=== PATIENT | male | born 1960 | race Caucasian/White ===

== ENCOUNTER 2016-04-17 19:45 | Emergency (ER) | payer MEDICARE ==
[~2016-04-17] VITALS: Ht 182.9 cm; Wt 218.2 kg
[~2016-04-17 19:45] MED LIST: ALLO300T2 PO; CEFD300C3 PO; DOXY100C PO; POTA20TA16 PO; TORS100T3 PO; WARF3TAB PO
[2016-04-17 19:48] VITALS: BP 119/71; PULSE 110; RESP 31; O2SAT 95
--- NOTE | 2016-04-17 19:58 | ED.REPORT ---
HPI-General Illness Date of Service Apr 17, 2016 ED Provider: Dr. Alex Pt is a 56 y/o male anticoagulated on Coumadin w/ a hx of CHF, chronic respiratory failure, KOKI on BiPAP with 2 L/min oxygen at night, recurrent pneumonia, severe aortic stenosis s/p valve replacement, presenting to the ED via EMS c/o pleuritic back pain onset today. He also c/o associated orthostatic lightheadedness and nausea. He was admitted 3 weeks ago for pneumonia and discharged on PO antibiotics after he had an allergic reaction to IV antibiotics. He denies CP, diaphoresis, vomiting, diarrhea, constipation. Nursing Notes Stated Complaint: BACK/LEFT ARM PAIN Chief Complaint: Dysrhythmia/Cardiac Nursing Notes Reviewed: Yes Allergies: Coded Allergies: azithromycin (Verified Allergy, Mild, 03/17/16) mild chill reportedly on 03/16/16 Scheduled Allopurinol (Allopurinol) 300 Mg Tablet 300 MG PO DAILY Cefdinir (Cefdinir) 300 Mg Capsule 300 MG PO BID Doxycycline Hyclate (Vibramycin) 100 Mg Capsule 100 MG PO BID Potassium Chloride (Potassium Chloride) 20 Meq Tab.er.prt 40 MEQ PO DAILY Torsemide (Torsemide) 100 Mg Tablet 100 MG PO DAILY Warfarin Sodium (Coumadin) 3 Mg Tablet 6 MG PO ONCE@17 General Time Seen by MD: 20:21 Chief Complaint Other (Pleuritic back pain) Hx Obtained From: Patient, EMS Arrived By: Ambulance Symptom Duration: Since onset Location: : Back Quality: Painful, Pleuritic Severity: Current: Moderate Severity: Maximum: Moderate Recent Healthcare: Recent doctor visit, Recent hospitalization, Recent testing , Previous diagnosis, Prior workup Similar Sx Previous: Yes Past Medical History Past Medical History 1. Obesity hypoventilation syndrome. 2. History of respiratory failure, status post intubation on mechanical ventilation in July 2009. 3. History of pneumonia in July 2009. 4. Congestive heart failure, chronic, systolic dysfunction by an echocardiogram from February 16, 2011, showing an LVEF of 35% to 40%. 5. history of asymptomatic short runs of V-tach 6. Coagulopathy with elevated INR and PTT, status post previous workup. 7. Morbid obesity. 8. Gout 8. Degenerative joint disease. 9. History of nephrolithiasis. 10. Obstructive sleep apnea, on BiPAP with supplemental oxygen at night. 11. Chronic atrial fibrillation on Coumadin. 12. valvular heart disease 13. aortic stenosis s/p valve replacement 16. history of renal failure Reports: Hypertension Past Surgical History 1. Bilateral knee arthroscopy. 2. Tear duct surgery as a child. 3. valve replacement Smoking History Current Every Day Smoker Social History Alcohol Use: Denies alcohol use Drug Use: Denies drug use Other Social History: Poor social support, Lives alone, Local resident Ambulatory Status Walker Review of Systems Full Review of Systems Constitutional: Denies: Chills, Fever Respiratory: Reports: Pleuritic pain Cardiovascular: Denies: Chest pain GI: Reports: Nausea, Denies: Abdominal pain, Diarrhea, Vomiting Musculoskeletal: Reports: Back pain, Extremity pain Skin: Denies Diaphoresis Neurologic: Reports: Lightheaded Complete sys rev & neg: except as marked. Physical Exam Vital Signs Vital Signs Date Time Temp Pulse Resp B/P Pulse Ox O2 Delivery O2 Flow Rate FiO2 04/17/16 22:33 93 15 118/77 95 Nasal Cannula 2 04/17/16 19:48 36.7 110 31 119/71 95 Nasal Cannula 2 Initial VS: Reviewed, Vital signs normal (at baseline) Head / Eyes: Atraumatic, Normocephalic, PERRL ENT: Mucous membranes moist, Conjunctiva normal, No scleral icterus Neck: Supple, Full range of motion Abdomen / GI: Soft Extremities: Vascular intact, Neuro intact, No tenderness Skin: Warm, Dry, No cyanosis Neurologic: Alert, Oriented, Nonfocal Psychiatric: Mood/affect normal, Behavior normal, Normal thought content General/Constitutional: Awake, Alert, No acute distress, Cooperative, Not toxic appearing Appearance / Presentation: Positive: Obese, morbidly Respiratory / Chest: Atraumatic, Breath sounds = bilat, No respiratory distress , No rales, No rhonchi, No retractions, No chest wall deformity Mild scattered wheezing bilaterally Pain with inspiration Tenderness along the sternal border Cardiovascular: Heart rate NL, Regular rhythm, Heart sounds NL, No gallop, No murmurs, No rubs, Cap refill not delayed, Peripheral circulation NL Lower Ext Edema: Positive: Bilateral 1+ Interpretation & Diagnostics Lab Results Interpretation Result Diagram: 04/17/16199904/17/162037 Test 04/17/16 20:00 04/17/16 20:29 04/17/16 20:38 White Blood Count 6.1th/mm3 (3.8-10.1) Red Blood Count 4.78mil/mm3 (4.40-5.80) Hemoglobin 11.8g/dL (13.8-17.2) Hematocrit 39.2% (41.0-50.0) Mean Corpuscular Volume 82.0fL (81-100) Mean Corpuscular Hemoglobin 24.7pg (27.0-35.0) Mean Corpuscular Hemoglobin Concent 30.1% (32.0-37.0) Red Cell Distribution Width 16.7% (12.3-15.4) Platelet Count 197bil/L (150-400) Neutrophils (%) (Auto) 74.8% (40-74) Lymphocytes (%) (Auto) 7.7% (14-46) Monocytes (%) (Auto) 6.4% (4-12) Eosinophils (%) (Auto) 9.8% (0-5) Basophils (%) (Auto) 0.3% (0-3) Hold Betancourt Top Tube Received (Received) Sodium Level 140mEq/L (134-144) Potassium Level 4.0mEq/L (3.5-5.2) Chloride Level 99mEq/L (97-108) Carbon Dioxide Level 28mmol/L (18-29) Blood Urea Nitrogen 18mg/dL (6-24) Creatinine 1.24mg/dL (0.76-1.27) Estimat Glomerular Filtration Rate 65mL/min (>59) Glucose Level 101mg/dL (60-99) Calcium Level 8.6mg/dL (8.5-10.1) Magnesium Level 2.2mg/dL (1.6-2.6) Total Bilirubin 0.5mg/dL (0.0-1.2) Aspartate Amino Transf (AST/SGOT) 9U/L (0-50) Alanine Aminotransferase (ALT/SGPT) 5U/L (0-44) Alkaline Phosphatase 76U/L (25-150) Troponin T 0.010ug/L (0.0-0.011) Pro-B-Type Natriuretic Peptide 3486pg/mL (0-121) Total Protein 7.1g/dL (6.4-8.4) Albumin 3.2g/dL (3.4-5.0) ECG Interpretation ECG Interpretation: Atrial fibrillation, rate 96. IVCD. Interpreted by: ED physician Normal ECG Interpretation: No acute ischemic changes X-Ray Chest Interpretation Chest Xray Interpretation: IMPRESSION: Cardiomegaly as before. No acute disease or interval change Dictated by: Sreekanth Byrd M.D. on 04/17/2016 at 20:46 Approved by: Sreekanth Byrd M.D. on 04/17/2016 at 20:46 View: Portable, 1 view Interpretation / Wet Read by: Interpret - Radiologist Re-Eval/Medical Decision Time of Eval: 22:59 Patient Status: Condition improved, Pain improved Re-Evaluation/Progress Note: Pt rechecked. Informed pt of plan for treatment. Pt understands and agrees with plan for treatment. F/U and RTER warnings given. All questions addressed. Counseled Regarding: Diagnosis, Lab results, Need for follow-up, When/why to return to ED Discharge & Departure Primary Impression: Pleurisy Additional Impression: Congestive heart failure Congestive heart failure type: unspecified congestive heart failure type Congestive heart failure chronicity: chronic Qualified Code: I50.9 - Heart failure, unspecified Disposition: Home Discharge Condition All VS Reviewed: Yes Condition: Stable Additional Instructions: No dangerous cause for your back pain or arm pain was identified today. Your labs, EKG, and chest x-ray were similar to prior visits and not dangerous at this time. I believe your pain is caused by pleurisy, an inflammation of the lining of the lungs. This can cause chest pain and back pain with breathing. Pleurisy often occurs after getting over pneumonia or a similar pulmonary disease. You should return to the emergency department if you experience severe or persistent chest pain, trouble breathing, high fever, persistent cough, profound generalized weakness, or other new or worsening symptoms. Follow-up with your primary care doctor next week. Referrals: Maya Bruno MD (PCP) Scribe Attestation Portions of this note were transcribed by Brenden Pretty and Noe Woody. I, Dr. Alex. ] personally performed the history, physical exam and medical decision-making; I reviewed and confirmed the accuracy of the information in the transcribed note. Signed by:Brenden Pretty and Noe Woody, Pasquale, [04/17] and [2100]. copies to: Maya Bruno MD,Alina Brewer 7, 2017 19:58 Brenden Pretty Apr 17, 2016 20:29 NOE WOODY Apr 17, 2016 21:23
[2016-04-17 20:15] LABS: BASOPHILS % (AUTO) 0.3 % (0-3); EOSINOPHILS % (AUTO) 9.8 % (0-5); MONOCYTES % (AUTO) 6.4 % (4-12); Mean Corpuscular Hemoglobin 24.7 pg (27.0-35.0); NEUTROPHILS % (AUTO) 74.8 % (40-74); Platelet Count 197 bil/L (150-400)
--- NOTE | 2016-04-17 20:48 | DRSVH ---
PROCEDURE: X-RAY CHEST ONE VIEW, PORTABLE ([id number]) INDICATIONS: back pain, afib TECHNIQUE: One view of the chest was acquired. COMPARISON: [facility], CR, XR CHEST 1VW (PORTABLE), 03/20/2016, 5:25. FINDINGS: Surgical changes and devices: None. Lungs and pleura: No pleural effusions or pneumothorax. Lungs are clear. Scattered scarring Mediastinum: Mediastinal contours appear normal. Heart size is no enlarged as before rmal. Bones and chest wall: No suspicious bony lesions. Overlying soft tissues appear unremarkable. IMPRESSION: Cardiomegaly as before. No acute disease or interval change Dictated by: Sreekanth Byrd M.D. on 04/17/2016 at 20:46 Approved by: Sreekanth Byrd M.D. on 04/17/2016 at 20:46
[2016-04-17 21:11] LABS: TROPONIN T 0.01 ug/L (0.0-0.011)
[2016-04-17 21:22] LABS: Magnesium 2.2 mg/dL (1.6-2.6)
[2016-04-17 22:33] VITALS: BP 118/77; PULSE 93; RESP 15; O2SAT 95
== END 2016-04-18 02:51 | disposition home or self-care (01) ==
LOC: SED 19:45
DX: I50.22 Chronic systolic (congestive) heart failure (principal); J96.10 Chronic respiratory failure, unspecified whether with hypoxia or hypercapnia; I11.0 Hypertensive heart disease with heart failure; G47.33 Obstructive sleep apnea (adult) (pediatric); I48.2 Chronic atrial fibrillation; E66.2 Morbid (severe) obesity with alveolar hypoventilation; I35.0 Nonrheumatic aortic (valve) stenosis; F17.200 Nicotine dependence, unspecified, uncomplicated; Z87.01 Personal history of pneumonia (recurrent); Z95.4 Presence of other heart-valve replacement; Z99.81 Dependence on supplemental oxygen; Z86.718 Personal history of other venous thrombosis and embolism; Z79.01 Long term (current) use of anticoagulants; Z88.1 Allergy status to other antibiotic agents; Z68.44 Body mass index [BMI] 60.0-69.9, adult

== ENCOUNTER 2016-04-26 14:41 | Inpatient (IN) | payer MEDICARE ==
[~2016-04-26] VITALS: Ht 182.9 cm; Wt 222.0 kg
[2016-04-26 14:49] VITALS: BP 113/72; PULSE 75; RESP 18; O2SAT 96
[2016-04-26 15:04] VITALS: BP 113/72; PULSE 75; RESP 18; O2SAT 96
[2016-04-26 15:15] LABS: BASOPHILS % (AUTO) 0.5 % (0-3); EOSINOPHILS % (AUTO) 12.6 % (0-5); MONOCYTES % (AUTO) 7.1 % (4-12); Mean Corpuscular Hemoglobin 24.6 pg (27.0-35.0); Mean Corpuscular Volume 81.1 fL (81-100); NEUTROPHILS % (AUTO) 72.2 % (40-74); Platelet Count 183 bil/L (150-400)
--- NOTE | 2016-04-26 15:22 | ED.REPORT ---
HPI-Chest Pain 40 and Over Date of Service Apr 26, 2016 ED Provider: Rory Self MD 56 year old male presents to the ED via EMS with intermittent chest pain and pressure for 3 days. Pain lasts for 10-15 minutes before resolving. Pain worse with exertion. He also reports increased SOB with pain. Sharp pain since 0200 this morning. The pain is midline with radiation to L arm, severe. He has had 12 episodes since onset today. Current he only has pain with inspiration. Hx DVT , aortic valve replacement (tissue), and Afib on Coumadin, CHF, KOKI, obesity, hyperventilation syndrome. Nursing Notes Stated Complaint: CHEST PAIN Chief Complaint: Chest Pain Nursing Notes Reviewed: Yes Allergies: Coded Allergies: azithromycin (Verified Allergy, Mild, 03/17/16) mild chill reportedly on 03/16/16 Heparin Analogues (Verified Allergy, Unknown, 04/26/16) Scheduled Allopurinol (Allopurinol) 300 Mg Tablet 300 MG PO DAILY Duloxetine (Duloxetine) 30 Mg Capsule.dr 60 MG PO DAILY Potassium Chloride (Potassium Chloride) 20 Meq Tab.er.prt 40 MEQ PO DAILY Torsemide (Torsemide) 100 Mg Tablet 100 MG PO DAILY Warfarin Sodium (Warfarin Sodium) 4 Mg Tablet 4 MG PO DAILY Scheduled PRN Trazodone (Trazodone) 50 Mg Tablet 50-300 MG PO HS PRN PRN For Sleep General Time Seen by MD: 15:13 Chief Complaint Chest pain Hx Obtained From: Patient, EMS Arrived By: Ambulance Sudden in Onset?: No Onset Occurred: 3 days ago Symptom Duration: Intermittent Location: : Substernal Quality: Painful Severity: Current: No pain currently Associated with: Reports: Shortness of Breath, Denies: Fever Exacerbated by: Deep breath Pertinent Negative: Relieved by nothing Risk Factors )( CAD Risk Stratification Risk factors reviewed )( TAD Risk Stratification Risk factors reviewed )( PE Risk Stratification Risk factors reviewed Past Medical History Past Medical History 1. Obesity hypoventilation syndrome. 2. History of respiratory failure, status post intubation on mechanical ventilation in July 2009. On 2-3L home 2. 3. History of pneumonia in July 2009. 4. Congestive heart failure, chronic, systolic dysfunction by an echocardiogram from February 16, 2011, showing an LVEF of 35% to 40%. 5. history of asymptomatic short runs of V-tach 6. Coagulopathy with elevated INR and PTT, status post previous workup. 7. Morbid obesity. 8. Gout 8. Degenerative joint disease. 9. History of nephrolithiasis. 10. Obstructive sleep apnea, on BiPAP with supplemental oxygen at night. 11. Chronic atrial fibrillation on Coumadin. 12. valvular heart disease 13. aortic stenosis s/p valve replacement 16. history of renal failure Reports: Hypertension Past Surgical History 1. Bilateral knee arthroscopy. 2. Tear duct surgery as a child. 3. valve replacement Smoking History Former Smoker Social History Alcohol Use: Denies alcohol use Drug Use: Denies drug use Other Social History: Poor social support, Lives alone, Local resident Ambulatory Status Walker Review of Systems Basic Review of Systems Eyes: Vision NL, No discharge ENT: Hearing NL, No pain, No nasal congestion, No pharyngeal pain Constitutional: Denies: Fever Respiratory: Reports: Dyspnea on exertion, Shortness of breath Cardiovascular: Reports: Chest pain, Dyspnea on exertion GI: Denies: Abdominal pain, Nausea, Vomiting Skin: Denies Diaphoresis, Denies Rash Neurologic: Denies: Change LOC, Headache Complete sys rev & neg: except as marked. Physical Exam Initial Vital Signs Vital Signs (First) Date Time Temp Pulse Resp B/P Pulse Ox O2 Delivery O2 Flow Rate FiO2 04/26/16 14:49 36.4 75 18 113/72 96 Room Air 4 Initial VS: Reviewed Head / Eyes: Atraumatic, Normocephalic, PERRL ENT: Mucous membranes moist, Conjunctiva normal, No scleral icterus Neck: Supple, Non-tender, Full range of motion Extremities: Vascular intact, Neuro intact, No tenderness Skin: Warm, Dry, No cyanosis Neurologic: Alert, Oriented, Nonfocal Psychiatric: Mood/affect normal, Behavior normal, Normal thought content General/Constitutional: Awake, Alert Appearance / Presentation: Positive: Obese, morbidly Generally ill appearing Respiratory / Chest: Breath sounds NL, Breath sounds = bilat, No respiratory distress, No rales, No rhonchi, No wheezing, No stridor, No chest tenderness Cardiovascular: Heart rate NL, Peripheral circulation NL Heart Rate / Rhythm: Positive: Irreg irregular rhythm Trace pitting edema bilat lower extremities Good radial pulses Abdomen: Soft, Non-tender Interpretation & Diagnostics Lab Results Interpretation Result Diagram: 04/26/16 1501 04/26/16 1501 Test 04/26/16 15:01 White Blood Count 5.7th/mm3 (3.8-10.1) Red Blood Count 4.71mil/mm3 (4.40-5.80) Hemoglobin 11.6g/dL (13.8-17.2) Hematocrit 38.2% (41.0-50.0) Mean Corpuscular Volume 81.1fL (81-100) Mean Corpuscular Hemoglobin 24.6pg (27.0-35.0) Mean Corpuscular Hemoglobin Concent 30.4% (32.0-37.0) Red Cell Distribution Width 16.3% (12.3-15.4) Platelet Count 183bil/L (150-400) Neutrophils (%) (Auto) 72.2% (40-74) Lymphocytes (%) (Auto) 7.1% (14-46) Monocytes (%) (Auto) 7.1% (4-12) Eosinophils (%) (Auto) 12.6% (0-5) Basophils (%) (Auto) 0.5% (0-3) Prothrombin Time 25.6sec (8.1-12.5) Prothromb Time International Ratio 2.35ratio D-Dimer < 0.5mg/L FEU (<0.50) Sodium Level 139mEq/L (134-144) Potassium Level 3.7mEq/L (3.5-5.2) Chloride Level 97mEq/L (97-108) Carbon Dioxide Level 30mmol/L (18-29) Blood Urea Nitrogen 10mg/dL (6-24) Creatinine 1.07mg/dL (0.76-1.27) Estimat Glomerular Filtration Rate 77mL/min (>59) Glucose Level 92mg/dL (60-99) Calcium Level 8.9mg/dL (8.5-10.1) Magnesium Level 1.8mg/dL (1.6-2.6) Total Bilirubin 0.9mg/dL (0.0-1.2) Aspartate Amino Transf (AST/SGOT) 9U/L (0-50) Alanine Aminotransferase (ALT/SGPT) 5U/L (0-44) Alkaline Phosphatase 85U/L (25-150) Pro-B-Type Natriuretic Peptide 3115pg/mL (0-121) Total Protein 7.4g/dL (6.4-8.4) Albumin 3.6g/dL (3.4-5.0) General Lab Results Interp 1: Labs reviewed ECG Interpretation ECG Interpretation: Afib with a rate of 83, nl axis, No ST segment elevation, No T wave inversions. Non specific IVCD- No change when compared to prior dated 04/17/16. Time: 14:54 Interpreted by: ED physician X-Ray Chest Interpretation Chest Xray Interpretation: IMPRESSION: No definite acute disease or interval change. Patchy bibasilar scarring/atelectasis. Dictated by: Sreekanth Byrd M.D. on 04/26/2016 at 15:34 View: Portable, 1 view Interpretation / Wet Read by: Interpret - Radiologist Re-Eval/Medical Decision Med Decision/Clinical Course 56 year old male presents to the ED via EMS with intermittent chest pain and pressure for 3 days. Pain lasts for 10-15 minutes before resolving. Pain worse with exertion. He also reports increased SOB with pain. Sharp pain since 0200 this morning. The pain is midline with radiation to L arm, severe. He has had 12 episodes since onset today. Current he only has pain with inspiration. Hx DVT , aortic valve replacement (tissue), and Afib on Coumadin, CHF, KOKI, obesity, hyperventilation syndrome. 324 ASA given upon arrival. The patient is afebrile with stable vital signs. Chest X-ray: No definite acute disease or interval change. Patchy bibasilar scarring/atelectasis. ECG Afib with a rate of 83, nl axis, No ST segment elevation, No T wave inversions. Non specific IVCD- No change when compared to prior dated 04/17/16. Her studies notable as below: no leukocytosis Hcy 38.2 Kidney function nl negative troponin CMP unremarkable BNP 3000, no prior INR 2.35 D-dimer negative Overall presentation is somewhat concerning for acute coronary syndrome given this patient's multiple risk factors and morbid obesity. From a cardiac standpoint I feel that he requires admission for further stratification and ACS rule out. I am reassured that this is not reflected a pulmonary embolism given his negative d-dimer. He is low risk according to Wells criteria. He does report weight gain and worsening shortness of breath in the setting of lower extremity edema and his BNP is elevated at 3000. He is treated with IV Lasix. His overall presentation seems consistent with CHF exacerbation though acute coronary syndrome is certainly a possibility as well. At this time he is stable. The patient was discussed with the admitting hospitalist and transferred to the [facility] for further management. Time of Eval: 17:12 Re-Evaluation/Progress Note: Updated pt of labs, ECG and imaging results. Recommended admission. Pt understands and agrees with plan. All questions addressed. Consultation : Referral / Consult Name: Remigio Graves MD Consulted With: Hospitalist Call Returned at: 17:20 Final Inspector Balance Wheel: Will see patient, Agrees with eval, Agrees with plan, Accepts admit Counseled Regarding: Diagnosis, Lab results, Need for admission Discharge & Departure Primary Impression: Chest pain Chest pain type: unspecified Qualified Code: R07.9 - Chest pain, unspecified Additional Impressions: Morbid obesity Obesity type: unspecified obesity type Qualified Code: E66.01 - Morbid ( severe) obesity due to excess calories CHF exacerbation Anticoagulated on Coumadin History of aortic valve replacement Atrial fibrillation Atrial fibrillation type: chronic Qualified Code: I48.2 - Chronic atrial fibrillation Disposition: ADMITTED TO HOSPITAL Discharge Condition All VS Reviewed: Yes Referrals: Maya Bruno MD (PCP) Scribe Attestation Portions of this note were transcribed by Noemi Nicholson. I, (Dr. Self) personally performed the history, physical exam and medical decision-making; I reviewed and confirmed the accuracy of the information in the transcribed note. Signed by: Noemi Nicholson. 04/26/2016, 1900 copies to: Maya Bruno MD, Beck O MD Apr 26, 2016 15:22 Noemi Nicholson Apr 26, 2016 17:12
--- NOTE | 2016-04-26 15:37 | DRSVH ---
PROCEDURE: X-RAY CHEST ONE VIEW, PORTABLE ([id number]) INDICATIONS: chest pain TECHNIQUE: One view of the chest was acquired. COMPARISON: Located [facility], CR, XR CHEST 1VW (PORTABLE), 04/17/2016, 20:00. FINDINGS: Surgical changes and devices: None. Lungs and pleura: No pleural effusions or pneumothorax. Patchy bibasilar ill-defined opacities are g rossly unchanged. No definite new consolidation Mediastinum: Mediastinal contours appear normal. Heart size is enlarged accounting for technique. Bones and chest wall: No suspicious bony lesions. Overlying soft tissues appear unremarkable. IMPRESSION: No definite acute disease or interval change. Patchy bibasilar scarring/atelectasis. Dictated by: Sreekanth Byrd M.D. on 04/26/2016 at 15:34 Approved by: Sreekanth Byrd M.D. on 04/26/2016 at 15:34
[2016-04-26 15:48] LABS: TROPONIN T < 0.010 ug/L (0.0-0.011)
[2016-04-26 15:56] LABS: Magnesium 1.8 mg/dL (1.6-2.6)
[2016-04-26 16:31] LABS: D-Dimer < 0.5 mg/L FEU (<0.50); INR 2.35 ratio
[2016-04-26] MEDS ORDERED: Alum-Mag Hydrox-Simeth 30 mL Suspension PO PRN (17:10)
[2016-04-26] MEDS ORDERED: Ondansetron 2 mg/mL 2 mL Inj IVPUSH PRN (17:10)
[2016-04-26] MEDS ORDERED: Furosemide 10 mg/mL 4 mL Inj IVPUSH ONE (17:25)
[2016-04-26 18:26] VITALS: BP 114/85; PULSE 76; RESP 19; O2SAT 93
[2016-04-26 19:09] VITALS: BP 116/75; PULSE 74; RESP 20; O2SAT 97
--- NOTE | 2016-04-26 19:15 | NUR ---
transfer er to [facility] 1027 ARRIVED ON FLOOR, A/O X [address] APPARENT DISTRESS. DR[address] ALMANZAR CONTACTED RE:ORDERS. PT PLACED IN BARIACTRIC BED. COOP WITH CARE.
[2016-04-26 19:30] VITALS: BP 115/77; PULSE 72; RESP 18; O2SAT 95
--- NOTE | 2016-04-26 20:36 | PCM.HPMED ---
Subjective Date of Service Apr 26, 2016 Primary Provider: Admitting Physician: Remigio Graves MD Primary Care Physician: Maya Bruno MD Attending Physician: Remigio Graves MD Chief Complaint: Chest pain HISTORY was OBTAINED FROM PATIENT / MEDITECH NOTES History of present illness 56-year-old male, w/ no prior TN/porcine AvR-coumadin /sCHF/EF 45%/atrial fibrillation, BIB EMS with chest pressure x 3 days, worse with exertion/deep breathing, both dull/constant/ongoing and intermittent/sharp/ electric lasting minutes, can radiate to Left upper extremity. Unclear if SOB is baseline. He indicates hypoxia even w/ home O2 sometimes. no sick contacts/ resolved pneumonia (Last admitted 03/16-02/2016, Right Lower Lobe Pneumonia with Acute on Chronic Exacerbation of CHF treated w/ IV Abx x6 days then home w/ cefdinir/doxycycline x 6 more days at which point he stopped due to rash). less than expected UOP, had been planning to give himself 150 torsemide today vs usual 100, which he does intermittently. unclear if there is water weight gain due to obesity. no prior TN. In the ER d-dimer negative, troponin negative, BNP 3000 (baseline 3000s), INR 2.3, chest x-ray negative. Lasix 40 w/ 600cc+ urine output. Review of Systems - none of the following - F/C/sick contact / wt change/ ANAYA / lightheaded / dizziness / sob / cough / cp / acid reflux / n/v/diarrhea / bleeding/bruising / leg swelling / change in voiding / yeast infections / rash walker, using more wheelchair due to chest pressure FAMILY HX obesity Scheduled Allopurinol (Allopurinol) 300 Mg Tablet 300 MG PO DAILY Potassium Chloride (Potassium Chloride) 20 Meq Tab.er.prt 40 MEQ PO DAILY Torsemide (Torsemide) 100 Mg Tablet 100 MG PO DAILY Warfarin Sodium (Coumadin) 3 Mg Tablet 6 MG PO ONCE@17 Past Medical History . Obesity hypoventilation syndrome. VDRF On 2-3L home 2. History of pneumonia. Obstructive sleep apnea, on BiPAP . systolic Congestive heart failure 2010, showing an LVEF of 35% to 40% >> 25% prior to AvR porcine for AoStenosis >> EF 45% 03/2016 / . Hypertension / runs of V-tach / Chronic atrial fibrillation on Coumadin. . Coagulopathy with elevated INR and PTT, status post previous workup. . Morbid obesity. . Gout . Degenerative joint disease. . History of nephrolithiasis. history of renal failure Bilateral knee arthroscopy. . Tear duct surgery as a child. social History Former Smoker Allergies Coded Allergies: azithromycin (Verified Allergy, Mild, 03/17/16) mild chill reportedly on 03/16/16 Heparin Analogues (Verified Allergy, Unknown, 04/26/16) PMH Social History Hx Alcohol Use: No Hx Substance Use: No Hx Tobacco Use: Yes (quit in mar 2009) Smoking Status: Former Smoker Exam Vital Signs Vital Sign - Last Date Time Temp Pulse Resp B/P Pulse Ox O2 Delivery O2 Flow Rate FiO2 04/26/16 19:09 74 20 116/75 97 Nasal Cannula 3 04/26/16 15:04 36.4 Lab and Diagnostics Labs Exam on admission 4L NC obese NAD A and O x 3 mood affect WNL NC/AT no icterus no injected eyes EOMI PERRL /no pharyngeal lesions/ no oral lesions / hearing intact Supple neck CTAB equal chest rise / no accessory muscle use / speaks in full sentences / no rrw irreg irreg distant S1 S2 / no mrg / 2+ radial pulses Soft nt nd + BS no hepatosplenomegaly mild/moderate edema no cyanosis no ecchymosis of lower extremities No rash / no jaundice PEÑA EKG [id number] LBBB-chronic trop I neg x 1 BNP 3000 CXR - IMPRESSION: No definite acute disease or interval change. Patchy bibasilar scarring/atelectasis. Echo 03/2016 Interpretation Summary Technically difficult study. The patient was in atrial fibrillation with controlled ventricular rate during the exam. Markedly dilated left ventricle with ejection fraction 40-45%. Right ventricular systolic function is mild to moderately reduced. Severely dilated both atria. There is a porcine aortic valve. The peak aortic velocity is 239.3 cm/sec with the mean gradient of 16.5 mmHg. Mild mitral regurgitation. Comparison is made with the echocardiogram of 12/07/13, LV function has improved. Result Diagram: 04/26/16 1501 04/26/16 1501 Assessment & Plan Active issues and reason for admission 56-year-old male with dull ache chest pressure and intermittent sharp chest pain admitted for ACS evaluation, obesity, likely contributory sCHF. -- Serial troponin, lipid/statin acute sCHF w/ lowest Cr in 3 months --diurese lasix 40IV BID, hold home torsemide 100-150mg per day, i/o, consider qd weight - obese Chronic issues known prior to admission, present on admission . Obesity hypoventilation syndrome. VDRF On 2-3L home 2. History of pneumonia. Obstructive sleep apnea, on BiPAP . systolic Congestive heart failure 2010, showing an LVEF of 35% to 40% >> 25% prior to AvR porcine for AoStenosis >> EF 45% 03/2016 / . Hypertension / runs of V-tach / Chronic atrial fibrillation on Coumadin. . Coagulopathy with elevated INR and PTT, status post previous workup. . Morbid obesity. . Gout . Degenerative joint disease. . History of nephrolithiasis. history of renal failure -- Resume home meds Diet cardiac DVT prophylaxis lovenox Code full Disposition OBS status Assessment and plan were discussed with patient Remigio Graves MD Apr 26, 2016 20:36 Diet DVT prophylaxis lovenox heparin scd ambulate Code Disposition OBS status Assessment and plan were discussed with patient family. Remigio Graves MD Apr 26, 2016 20:36
[2016-04-26] MEDS ORDERED: Nitroglycerin 2% 1 Gm Ointment TOPICAL PRN (20:40)
[2016-04-26] MEDS ORDERED: TRAZ-115 PO (20:54)
[2016-04-26] MEDS ORDERED: DULO30CA50 PO (20:54)
[2016-04-26] MEDS ORDERED: WARF4TAB6 PO (20:54)
--- NOTE | 2016-04-26 22:20 | PCM.CONPHA ---
Subjective Date of Service: Apr 26, 2016 Chest pain HISTORY was OBTAINED FROM PATIENT / Resilience NOTES History of present illness 56-year-old male with chest pain on and off, worse with exertion, sharp. In the ER d-dimer negative, troponin negative, BNP 3000, INR 2.3, chest x-ray negative. Lasix 1 Review of Systems - none of the following - F/C/sick contact / wt change/ ANAYA / lightheaded / dizziness / sob / cough / cp / acid reflux / n/v/diarrhea / bleeding/bruising / leg swelling / change in voiding / yeast infections / rash FAMILY HX mild chill reportedly on 03/16/16 Scheduled Allopurinol (Allopurinol) 300 Mg Tablet 300 MG PO DAILY Cefdinir (Cefdinir) 300 Mg Capsule 300 MG PO BID Doxycycline Hyclate (Vibramycin) 100 Mg Capsule 100 MG PO BID Potassium Chloride (Potassium Chloride) 20 Meq Tab.er.prt 40 MEQ PO DAILY Torsemide (Torsemide) 100 Mg Tablet 100 MG PO DAILY Warfarin Sodium (Coumadin) 3 Mg Tablet 6 MG PO ONCE@17 General Time Seen by MD: 15:13 Chief Complaint Chest pain Hx Obtained From: Patient, EMS Arrived By: Ambulance Sudden in Onset?: No Onset Occurred: 3 days ago Symptom Duration: Intermittent Location: : Substernal Quality: Painful Severity: Current: No pain currently Associated with: Reports: Shortness of Breath, Denies: Fever Exacerbated by: Deep breath Pertinent Negative: Relieved by nothing Risk-Chest Pain 40 and Over Risk Factors )( CAD Risk Stratification Risk factors reviewed )( TAD Risk Stratification Risk factors reviewed )( PE Risk Stratification Risk factors reviewed Past Medical History - Adult Past Medical History Past Medical History 1. Obesity hypoventilation syndrome. 2. History of respiratory failure, status post intubation on mechanical ventilation in July 2009. On 2-3L home 2. 3. History of pneumonia in July 2009. 4. Congestive heart failure, chronic, systolic dysfunction by an echocardiogram from February 16, 2011, showing an LVEF of 35% to 40%. 5. history of asymptomatic short runs of V-tach 6. Coagulopathy with elevated INR and PTT, status post previous workup. 7. Morbid obesity. 8. Gout 8. Degenerative joint disease. 9. History of nephrolithiasis. 10. Obstructive sleep apnea, on BiPAP with supplemental oxygen at night. 11. Chronic atrial fibrillation on Coumadin. 12. valvular heart disease 13. aortic stenosis s/p valve replacement 16. history of renal failure Reports: Hypertension Past Surgical History 1. Bilateral knee arthroscopy. 2. Tear duct surgery as a child. 3. valve replacement Smoking History Former Smoker Reason for Pharmacy Consult: Vancomycin Dosing Objective Vital Signs Date Time Temp Pulse Resp B/P Pulse Ox O2 Delivery O2 Flow Rate FiO2 04/26/16 21:45 3.00 04/26/16 19:30 36.2 72 18 115/77 95 Nasal Cannula 2.00 04/26/16 19:09 74 20 116/75 97 Nasal Cannula 3 04/26/16 18:26 76 19 114/85 93 Nasal Cannula 4 04/26/16 15:04 36.4 75 18 113/72 96 Room Air 4 04/26/16 14:49 36.4 75 18 113/72 96 Room Air 4 Weight (Kilograms): 226.200 Height (Feet): 6 Height (Inches): 0.00 Test 04/26/16 15:01 04/26/16 21:39 White Blood Count 5.7th/mm3 (3.8-10.1) Red Blood Count 4.71mil/mm3 (4.40-5.80) Hemoglobin 11.6g/dL (13.8-17.2) Hematocrit 38.2% (41.0-50.0) Mean Corpuscular Volume 81.1fL (81-100) Mean Corpuscular Hemoglobin 24.6pg (27.0-35.0) Mean Corpuscular Hemoglobin Concent 30.4% (32.0-37.0) Red Cell Distribution Width 16.3% (12.3-15.4) Platelet Count 183bil/L (150-400) Neutrophils (%) (Auto) 72.2% (40-74) Lymphocytes (%) (Auto) 7.1% (14-46) Monocytes (%) (Auto) 7.1% (4-12) Eosinophils (%) (Auto) 12.6% (0-5) Basophils (%) (Auto) 0.5% (0-3) Prothrombin Time 25.6sec (8.1-12.5) Prothromb Time International Ratio 2.35ratio D-Dimer < 0.5mg/L FEU (<0.50) Sodium Level 139mEq/L (134-144) Potassium Level 3.7mEq/L (3.5-5.2) Chloride Level 97mEq/L (97-108) Carbon Dioxide Level 30mmol/L (18-29) Blood Urea Nitrogen 10mg/dL (6-24) Creatinine 1.07mg/dL (0.76-1.27) Estimat Glomerular Filtration Rate 77mL/min (>59) Glucose Level 92mg/dL (60-99) Calcium Level 8.9mg/dL (8.5-10.1) Magnesium Level 1.8mg/dL (1.6-2.6) Total Bilirubin 0.9mg/dL (0.0-1.2) Aspartate Amino Transf (AST/SGOT) 9U/L (0-50) Alanine Aminotransferase (ALT/SGPT) 5U/L (0-44) Alkaline Phosphatase 85U/L (25-150) Pro-B-Type Natriuretic Peptide 3115pg/mL (0-121) Total Protein 7.4g/dL (6.4-8.4) Albumin 3.6g/dL (3.4-5.0) Assessment/Plan Assessment/Plan Warfarin per Rx: Indication: A-Fib/Bioprosthetic Aortic Valve INR Goal: 2 - 3; today's INR: 2.35 Continue Pt's home dose of 6mg - pt did not take dose prior to admission Previous home dose of 4mg was increased to 6mg during last admission (03/26) Daily INR ordered Selvin Wright PharmD Apr 26, 2016 22:20
[2016-04-26 23:13] VITALS: PULSE 83
[2016-04-27] VITALS (8 sets, daily range): BP systolic 95–131; BP diastolic 58–87; PULSE 64–97; RESP 18–20; O2SAT 93–98
--- NOTE | 2016-04-27 05:49 | NUR ---
Activity / pain Pt fully active in bed, does not get up per home baseline related to weakness and SOB. Currently no complaints of SOB, reported one short episode of transient chest pressure; no ectopy per tele, remains in a-fib, 60s HR. CPAP with O2 while sleeping kept sat > 92%, low B/P without symptoms. Changed to [facility] bed more appropriate for weight. Hourly rounding ongoing.
[2016-04-27 06:20] LABS: BASOPHILS % (AUTO) 0.2 % (0-3); EOSINOPHILS % (AUTO) 13.3 % (0-5); MONOCYTES % (AUTO) 6.2 % (4-12); Mean Corpuscular Hemoglobin 24.3 pg (27.0-35.0); Mean Corpuscular Volume 81.4 fL (81-100); Platelet Count 160 bil/L (150-400)
[2016-04-27 06:45] LABS: INR 2.84 ratio
[2016-04-27 07:37] LABS: TROPONIN T < 0.010 ug/L (0.0-0.011)
[2016-04-27] MEDS: DULoxetine 30 mg DR Capsule PO SCH (11:56)
[2016-04-27] MEDS: Furosemide 10 mg/mL 4 mL Inj IVPUSH SCH ×2 (11:57→20:55)
--- NOTE | 2016-04-27 12:08 | PCM.PHAPRO ---
Progress Warfarin Management by Pharmacy: - Indication: A-Fib/Bioprosthetic Aortic Valve -INR Goal: 2 - 3 -Home Dose: warfarin 6mg po daily -Inr Trends: 04/26 Inr: 2.35 warfarin 6mg 04/27 Inr 2.84 -Concurrent drug interactions: asa 81mg, duloxetine 60mg -Plan: pt received his dose of warfarin 6mg late last nite ~ midnight and lab drawn for inr was about 5 hours after administration inr is therapeutic, will give warfarin 5mg this evening and will schedule a bit later than 1700 due to late admin last nite Jackie Theodore [facility] Apr 27, 2016 12:08
[2016-04-27] MEDS: Potassium Chloride 20 mEq SR Tablet PO SCH (12:18)
--- NOTE | 2016-04-27 12:47 | NUR ---
Social Work Brief Note: EMR reviewed. Patient is a 56 year old male admitted under observation status on 04/26/16 for chest pain, morbid obesity, and A fib. Patient payer as Medicare. Patient PCP as MD Bruno. Patient resides in [facility]. Patient emergency contact listed as brother Cliff, . Patient uses home 02 at home. Patient has a wheelchair and fww at home. Patient had recent admission back on 03/18/16. [facility] referral initiated on patient and community resources provided previously. BRANDY contacted [facility], and spoke to [facility] who states that patient assigned to Elly Friedman, . BRANDY contacted Elly and left voice mail message to confirm fax number to fax clinicals and to discuss allotted hours assigned to patient. SW to follow. Per report in rounds patient to undergo stress test and echo today. No anticipated discharge needs identified at this time. SW to follow. PLAN: Home via POV, pending clinical course. Current with [facility] (Left message for customer care specialist to confirm fax number to send clinicals). BRANDY to follow. Emir BRADLEY Addendum: 04/27/16 at 1316 by DANICA BROWN BRANDY spoke to [facility] rep [place]ria who states that patient active with services but no caregiver has been assigned at this time. Rep states that contact to [employer] and [facility] services made and agencies have no availability to open new case for patients at this time. Elly states that she has notified with [facility] ergistry and to await notification of possible caregiver availability. She will continue to follow up with patient once caregiver assigned. Patient eligible for 158hrs/month with 36hrs/week. BRANDY faxed clinicals to [phone]. BRANDY to follow. Emir BRADLEY Addendum: 04/27/16 at 1609 by DANICA BROWN Patient current with Mariel [facility] for [facility] Rn, OT, and aid. BRANDY to ensure resumption of care at discharge. Emir BRADLEY Addendum: 05/07/16 at 1325 by DANICA BROWN Social Work Initial Assessment not Brief Note *
--- NOTE | 2016-04-27 14:25 | PCM.PNMED ---
Subjective Date of Service Apr 27, 2016 Subjective Patient is still complaining of being more dyspneic than usual. He denies any increased lower extremity swelling however denies any chest pain at this point in time. We were thinking of doing a stress nuclear medicine test however on he is too large for the equipment to make it feasible. His serial troponins have remained negative. He has had an increase in urine output with IV Lasix. Exam Vital Signs Vital Sign - Last Date Time Temp Pulse Resp B/P Pulse Ox O2 Delivery O2 Flow Rate FiO2 04/27/16 10:50 Supplement Oxygen CPAP/BIPAP 04/27/16 09:14 36.3 77 20 109/71 98 3.00 Intake and Output 04/26/16 04/26/16 04/27/16 Cumulative From/Thru 15:00 23:00 07:00 04/26/16 14:49 - 04/27/16 05:17 Intake Total 240 ml 1200 ml 1440 ml Output Total 450 ml 825 ml 1275 ml Balance -210 ml 375 ml 165 ml Intake Oral 240 ml 1200 ml 1440 ml Output Urine Total 450 ml 825 ml 1275 ml # Voids 1 2 3 # Bowel Movements 0 0 Exam Constitutional: Morbidly obese male who is sleeping in bed but I wake him he has apparent comfort at this time Head: NormoCephalic atraumatic Eyes: PERRLA DC EOMI Chest: Clear to auscultation Cor: Regular rate and rhythm S1-S2 without murmur Abdomen: Soft nontender bowel sounds present extremity exam: Trace bilateral pedal edema with chronic venous stasis changes Neuro: Alert and oriented 3, motor strength is intact bilaterally Lab and Diagnostics Laboratory Tests 72 Hours Test 04/26/16 15:01 04/26/16 21:39 04/26/16 23:13 04/27/16 05:42 White Blood Count 5.7th/mm3 (3.8-10.1) 5.0th/mm3 (3.8-10.1) Red Blood Count 4.71mil/mm3 (4.40-5.80) 4.24mil/mm3 (4.40-5.80) Hemoglobin 11.6g/dL (13.8-17.2) 10.3g/dL (13.8-17.2) Hematocrit 38.2% (41.0-50.0) 34.5% (41.0-50.0) Mean Corpuscular Volume 81.1fL (81-100) 81.4fL (81-100) Mean Corpuscular Hemoglobin 24.6pg (27.0-35.0) 24.3pg (27.0-35.0) Mean Corpuscular Hemoglobin Concent 30.4% (32.0-37.0) 29.9% (32.0-37.0) Red Cell Distribution Width 16.3% (12.3-15.4) 16.2% (12.3-15.4) Platelet Count 183bil/L (150-400) 160bil/L (150-400) Neutrophils (%) (Auto) 72.2% (40-74) 71.0% (40-74) Lymphocytes (%) (Auto) 7.1% (14-46) 8.9% (14-46) Monocytes (%) (Auto) 7.1% (4-12) 6.2% (4-12) Eosinophils (%) (Auto) 12.6% (0-5) 13.3% (0-5) Basophils (%) (Auto) 0.5% (0-3) 0.2% (0-3) Prothrombin Time 25.6sec (8.1-12.5) 31.0sec (8.1-12.5) Prothromb Time International Ratio 2.35ratio 2.84ratio D-Dimer < 0.5mg/L FEU (<0.50) Sodium Level 139mEq/L (134-144) 137mEq/L (134-144) Potassium Level 3.7mEq/L (3.5-5.2) 4.2mEq/L (3.5-5.2) Chloride Level 97mEq/L (97-108) 97mEq/L (97-108) Carbon Dioxide Level 30mmol/L (18-29) 26mmol/L (18-29) Blood Urea Nitrogen 10mg/dL (6-24) 13mg/dL (6-24) Creatinine 1.07mg/dL (0.76-1.27) 1.13mg/dL (0.76-1.27) Estimat Glomerular Filtration Rate 77mL/min (>59) 72mL/min (>59) Glucose Level 92mg/dL (60-99) 93mg/dL (60-99) Calcium Level 8.9mg/dL (8.5-10.1) 8.6mg/dL (8.5-10.1) Magnesium Level 1.8mg/dL (1.6-2.6) Total Bilirubin 0.9mg/dL (0.0-1.2) Aspartate Amino Transf (AST/SGOT) 9U/L (0-50) Alanine Aminotransferase (ALT/SGPT) 5U/L (0-44) Alkaline Phosphatase 85U/L (25-150) Troponin T < 0.010ug/L (0.0-0.011) 0.010ug/L (0.0-0.011) < 0.010ug/L (0.0-0.011) Pro-B-Type Natriuretic Peptide 3115pg/mL (0-121) Total Protein 7.4g/dL (6.4-8.4) Albumin 3.6g/dL (3.4-5.0) Hold Urine Received (Received) Triglycerides Level 95mg/dL (0-149) Cholesterol Level 94mg/dL (100-199) LDL Cholesterol, Calculated 48.000mg/dL (0-99) VLDL Cholesterol 19.000mg/dL HDL Cholesterol 27mg/dL (>39) Cholesterol/HDL Ratio 3.48 (0.0-4.4) Result Diagram: 04/27/16 0542 04/27/1642 Assessment & Plan Active issues and reason for admission 56-year-old male with dull ache chest pressure and intermittent sharp chest pain admitted for ACS evaluation, obesity, likely contributory sCHF. -- Serial troponin, lipid/statin acute sCHF w/ lowest Cr in 3 months --diurese lasix 40IV BID, hold home torsemide 100-150mg per day, i/o, consider qd weight - obese -Continue with IV Lasix diuresis -Recheck echocardiogram Chronic issues known prior to admission, present on admission . Obesity hypoventilation syndrome. VDRF On 2-3L home 2. History of pneumonia. Obstructive sleep apnea, on BiPAP . systolic Congestive heart failure 2010, showing an LVEF of 35% to 40% >> 25% prior to AvR porcine for AoStenosis >> EF 45% 03/2016 / . Hypertension / runs of V-tach / Chronic atrial fibrillation on Coumadin. . Coagulopathy with elevated INR and PTT, status post previous workup. . Morbid obesity. . Gout . Degenerative joint disease. . History of nephrolithiasis. history of renal failure -- Resume home meds Diet cardiac DVT prophylaxis lovenox Code full Disposition OBS status Assessment and plan were discussed with patient Time spent 30 minutes Roxanne Pantoja MD Apr 27, 2016 14:25
--- NOTE | 2016-04-27 18:08 | DRSVH ---
[facility] [address] [place] [address] Echocardiogram Report Name: MASTER FREEMAN MStudy D ate: 04/27/2016 Height: 72 in Hospital Exam Location: [facility] Weight: 498 lb Gender: Male BSA: 3.1 m2 : 1960 Age: 56 yrs BP: 96/68 m mHg Reason For Study: Congestive Heart Failure History: AVR-porcine Ordering Physician: HOSPITALIST [facility] Performed By: Arabella Campbell Referring Physician: Dr. Alexander Bruno Interpretation Summary Limited Echo to assess LV function: Echo poor quality due to body habitus. 1) Grossly, LV function estimated at 25-30%. Wall motion difficult to assess due to limited visualization. 2) No pericardial effusion present. 3) Compared to the Echo done 03/17/2016, LVEF appears lower on today's study. I think EF on prior study is closer to 35% on my assessment. Procedure: A two-dimensional transthoracic echocardiogram with color flow and Doppler was performed. The study quality was technically difficult. Comparison is made with the echocardiogram of 03/17/2016. A contrast injection of Definity was performed to improve assessment of LV function. No complications with contrast. The patient was in atrial fibrillation with heart rates between 65-85 bpm during the exam. Left Ventricle: The left ventricle is markedly dilated. Left ventricular wall thickness is borderline increased. The ejection fraction is estimated to be 25-30%. Regional wall motion abnormalities cannot be excluded due to limited visualization. Diastolic function could not be accurately assessed due to unobtainable data. Right Ventricle: The right ventricle is not well visualized. Atria: The left atrium is not well visualized. Right atrium not well visualized. Mitral Valve: The mitral valve is grossly normal. There is at least trace mitral regurgitation. Aortic Valve: There is a porcine aortic valve. The prosthetic aortic valve is not well visualized. Tricuspid Valve: The tricuspid valve is not well visualized. Pulmonary artery pressures cannot be estimated because of the lack of a measurable TR jet velocity. Pulmonic Valve: The pulmonic valve is not well visualized. There is mild pulmonic regurgitation. Pericardium/ Pleura There is no pericardial effusion. MMode/2D Measurements & Calculations LVIDd LV martinez. diameter/BSA (cm/m^2) LV sys. diameter/BSA (cm/m^2) : 7.9 cm LVIDs : 7.1 cm FS: 10.0 % IVSd : 0.9cm LVPWd : 1.1 cm Doppler Measurements & Calculations Ao V2 max PA V2 max MV V2 mean Ao V2 mean : 259.3 cm/sec : 79.5 cm/sec : 104.6 cm/sec : 189.7 cm/sec Ao max PG PA mean PG MV mean PG Ao V2 VTI: 48.4 cm : 26.9 mmHg Ao mean PG PA Accel Time MV V2 VTI: 30.8 cm : 15.8 mmHg PA V2 mean : 48.8 cm/sec Reading Physician:06:07 PM
--- NOTE | 2016-04-27 19:51 | NUR ---
Testing Patient unable to go have stress test related equipment wt limit. Pt did have echo done today. No continued complaints of pain had twinges in right leg but transient. No complaints of chest pain today but does state it gets uncomfortable if he tries to lay flat . Dyspnea with exertion noted.
[2016-04-28] VITALS (7 sets, daily range): BP systolic 92–115; BP diastolic 58–80; PULSE 62–88; RESP 16–20; O2SAT 92–95
--- NOTE | 2016-04-28 01:29 | NUR ---
activity MD gave ok for pt to be off tele for a shower. pt was able to ambulate to the bathroom SBA with 2L of 02 on. pt stated while showering he had one twinge of sharp chest pain. he said he sat down and waited a few minutes but it did not return. otherwise he complains of a generalized achiness all over his body. he denies the need for tylenol or other pain medication. tele has been placed back on pt and he still a-fib in the 70s.
--- NOTE | 2016-04-28 05:52 | NUR ---
anxiety/02 sats pt having anxiety about his 02 saturation. he says when he tries to sleep the [employer] keeps beeping showing an elevated HR and decreased 02 sat. nurse and LEAN LEADER have not heard [employer] PH[employer] machine go off and whenever staff is in the room while pt is awake his 02 sat is 92-93 and hr is in the 80s. Pt states he "can't stop thinking about what might be wrong". nurse turned up the 02 to his CPAP to 4L. pt also complained of a generalized achiness, sore throat and runny nose. pt was given 975mg of tylenol. will monitor for effectiveness. care continues.
[2016-04-28 06:55] LABS: INR 2.76 ratio
--- NOTE | 2016-04-28 09:01 | PCM.PHAPRO ---
Progress Warfarin Management by Pharmacy: - Indication: A-Fib/Bioprosthetic Aortic Valve -INR Goal: 2 - 3 -Home Dose: warfarin 6mg po daily -Inr Trends: 04/26 Inr: 2.35 warfarin 6mg 04/27 Inr 2.84 warfarin 2.5mg 04/28 Inr 2.76 Plan: pt now states his home dose is 4mg and requested his dose last evening on 04/27 to be warfarin 2.5mg. Inr is therapeutic today at 2.76 and will continue his home dose of 4mg Jackie Theodore [facility] Apr 28, 2016 09:01
[2016-04-28] MEDS: Furosemide 10 mg/mL 4 mL Inj IVPUSH SCH (09:02)
[2016-04-28] MEDS: DULoxetine 30 mg DR Capsule PO SCH (09:04)
[2016-04-28] MEDS: Potassium Chloride 20 mEq SR Tablet PO SCH (09:04)
[2016-04-28 09:33] LABS: BASOPHILS % (AUTO) 0.3 % (0-3); EOSINOPHILS % (AUTO) 11.2 % (0-5); MONOCYTES % (AUTO) 5.1 % (4-12); Mean Corpuscular Hemoglobin 24.1 pg (27.0-35.0); Mean Corpuscular Volume 81.5 fL (81-100); NEUTROPHILS % (AUTO) 76.5 % (40-74); Platelet Count 152 bil/L (150-400)
--- NOTE | 2016-04-28 11:51 | PCM.PNMED ---
Subjective Date of Service Apr 28, 2016 Subjective Patient today is complaining of generalized achiness. He denies any fevers chills does note a little bit of head congestion postnasal drainage. He is concerned that they had turned up his O2 to 4 L to have him appropriately O2 sats overnight. Denies any chest pain at this time. He is obsessive about some of his pro BNP numbers being elevated although I do give him a list over the past 5 years and it is fairly in-line with them. He did request that I have cardiology consult on him. Which I did agree to do. Exam Vital Signs Vital Sign - Last Date Time Temp Pulse Resp B/P Pulse Ox O2 Delivery O2 Flow Rate FiO2 04/28/16 09:58 36.2 84 113/73 95 Nasal Cannula 3.00 04/28/16 05:30 16 Intake and Output 04/27/16 04/27/16 04/28/16 Cumulative From/Thru 15:00 23:00 07:00 04/26/16 14:49 - 04/28/16 01:44 Intake Total 1400 ml 2840 ml Output Total 900 ml 2175 ml Balance 500 ml 665 ml Intake Oral 1400 ml 2840 ml Output Urine Total 900 ml 2175 ml # Voids 3 # Bowel Movements 0 Exam Constitutional: Morbidly obese male sitting at the edge of the bed in no acute distress Head: Normocephalic atraumatic Chest: Clear to auscultation Cor: Regular rate and rhythm S1-S2 Abdomen: Morbidly obese soft Extremities: Trace bilateral pedal edema with chronic venous stasis changes Neuro: Alert and oriented 3, motor strength is intact bilaterally Lab and Diagnostics Laboratory Tests 72 Hours Test 04/26/16 15:01 04/26/16 21:39 04/26/16 23:13 04/27/16 05:42 White Blood Count 5.7th/mm3 (3.8-10.1) 5.0th/mm3 (3.8-10.1) Red Blood Count 4.71mil/mm3 (4.40-5.80) 4.24mil/mm3 (4.40-5.80) Hemoglobin 11.6g/dL (13.8-17.2) 10.3g/dL (13.8-17.2) Hematocrit 38.2% (41.0-50.0) 34.5% (41.0-50.0) Mean Corpuscular Volume 81.1fL (81-100) 81.4fL (81-100) Mean Corpuscular Hemoglobin 24.6pg (27.0-35.0) 24.3pg (27.0-35.0) Mean Corpuscular Hemoglobin Concent 30.4% (32.0-37.0) 29.9% (32.0-37.0) Red Cell Distribution Width 16.3% (12.3-15.4) 16.2% (12.3-15.4) Platelet Count 183bil/L (150-400) 160bil/L (150-400) Neutrophils (%) (Auto) 72.2% (40-74) 71.0% (40-74) Lymphocytes (%) (Auto) 7.1% (14-46) 8.9% (14-46) Monocytes (%) (Auto) 7.1% (4-12) 6.2% (4-12) Eosinophils (%) (Auto) 12.6% (0-5) 13.3% (0-5) Basophils (%) (Auto) 0.5% (0-3) 0.2% (0-3) Prothrombin Time 25.6sec (8.1-12.5) 31.0sec (8.1-12.5) Prothromb Time International Ratio 2.35ratio 2.84ratio D-Dimer < 0.5mg/L FEU (<0.50) Sodium Level 139mEq/L (134-144) 137mEq/L (134-144) Potassium Level 3.7mEq/L (3.5-5.2) 4.2mEq/L (3.5-5.2) Chloride Level 97mEq/L (97-108) 97mEq/L (97-108) Carbon Dioxide Level 30mmol/L (18-29) 26mmol/L (18-29) Blood Urea Nitrogen 10mg/dL (6-24) 13mg/dL (6-24) Creatinine 1.07mg/dL (0.76-1.27) 1.13mg/dL (0.76-1.27) Estimat Glomerular Filtration Rate 77mL/min (>59) 72mL/min (>59) Glucose Level 92mg/dL (60-99) 93mg/dL (60-99) Calcium Level 8.9mg/dL (8.5-10.1) 8.6mg/dL (8.5-10.1) Magnesium Level 1.8mg/dL (1.6-2.6) Total Bilirubin 0.9mg/dL (0.0-1.2) Aspartate Amino Transf (AST/SGOT) 9U/L (0-50) Alanine Aminotransferase (ALT/SGPT) 5U/L (0-44) Alkaline Phosphatase 85U/L (25-150) Troponin T < 0.010ug/L (0.0-0.011) 0.010ug/L (0.0-0.011) < 0.010ug/L (0.0-0.011) Pro-B-Type Natriuretic Peptide 3115pg/mL (0-121) Total Protein 7.4g/dL (6.4-8.4) Albumin 3.6g/dL (3.4-5.0) Hold Urine Received (Received) Triglycerides Level 95mg/dL (0-149) Cholesterol Level 94mg/dL (100-199) LDL Cholesterol, Calculated 48.000mg/dL (0-99) VLDL Cholesterol 19.000mg/dL HDL Cholesterol 27mg/dL (>39) Cholesterol/HDL Ratio 3.48 (0.0-4.4) Test 04/28/16 06:08 White Blood Count 5.9th/mm3 (3.8-10.1) Red Blood Count 4.44mil/mm3 (4.40-5.80) Hemoglobin 10.7g/dL (13.8-17.2) Hematocrit 36.2% (41.0-50.0) Mean Corpuscular Volume 81.5fL (81-100) Mean Corpuscular Hemoglobin 24.1pg (27.0-35.0) Mean Corpuscular Hemoglobin Concent 29.6% (32.0-37.0) Red Cell Distribution Width 16.2% (12.3-15.4) Platelet Count 152bil/L (150-400) Neutrophils (%) (Auto) 76.5% (40-74) Lymphocytes (%) (Auto) 6.6% (14-46) Monocytes (%) (Auto) 5.1% (4-12) Eosinophils (%) (Auto) 11.2% (0-5) Basophils (%) (Auto) 0.3% (0-3) Prothrombin Time 30.1sec (8.1-12.5) Prothromb Time International Ratio 2.76ratio Sodium Level 137mEq/L (134-144) Potassium Level 3.9mEq/L (3.5-5.2) Chloride Level 95mEq/L (97-108) Carbon Dioxide Level 30mmol/L (18-29) Blood Urea Nitrogen 13mg/dL (6-24) Creatinine 1.10mg/dL (0.76-1.27) Estimat Glomerular Filtration Rate 74mL/min (>59) Glucose Level 165mg/dL (60-99) Calcium Level 8.5mg/dL (8.5-10.1) Result Diagram: 04/28/16 0608 04/28/16 0608 Cardiac Echo Impressions Name: MASTER FREEMAN MStudy D ate: 04/27/2016 Height: 72 in Hospital Exam Location: [facility] Weight: 498 lb Gender: Male BSA: 3.1 m2 : 1960 Age: 56 yrs BP: 96/68 m mHg Reason For Study: Congestive Heart Failure History: AVR-porcine Ordering Physician: [facility]PITAL[facility] Performed By: Arabella Campbell Referring Physician: Dr. Alexander Bruno Interpretation Summary Limited Echo to assess LV function: Echo poor quality due to body habitus. 1) Grossly, LV function estimated at 25-30%. Wall motion difficult to assess due to limited visualization. 2) No pericardial effusion present. 3) Compared to the Echo done 03/17/2016, LVEF appears lower on today's study. I think EF on prior study is closer to 35% on my assessment. Procedure: A two-dimensional transthoracic echocardiogram with color flow and Doppler was performed. The study quality was technically difficult. Comparison is made with the echocardiogram of 03/17/2016. A contrast injection of Definity was performed to improve assessment of LV function. No complications with contrast. The patient was in atrial fibrillation with heart rates between 65-85 bpm during the exam. Left Ventricle: The left ventricle is markedly dilated. Left ventricular wall thickness is borderline increased. The ejection fraction is estimated to be 25-30%. Regional wall motion abnormalities cannot be excluded due to limited visualization. Diastolic function could not be accurately assessed due to unobtainable data. Right Ventricle: The right ventricle is not well visualized. Atria: The left atrium is not well visualized. Right atrium not well visualized. Mitral Valve: The mitral valve is grossly normal. There is at least trace mitral regurgitation. Aortic Valve: There is a porcine aortic valve. The prosthetic aortic valve is not well visualized. Tricuspid Valve: The tricuspid valve is not well visualized. Pulmonary artery pressures cannot be estimated because of the lack of a measurable TR jet velocity. Pulmonic Valve: The pulmonic valve is not well visualized. There is mild pulmonic regurgitation. Pericardium/ Pleura There is no pericardial effusion. MMode/2D Measurements & Calculations LVIDd LV martinez. diameter/BSA (cm/m^2) LV sys. diameter/BSA (cm/m^2) : 7.9 cm LVIDs : 7.1 cm FS: 10.0 % IVSd : 0.9cm LVPWd : 1.1 cm Doppler Measurements & Calculations Ao V2 max PA V2 max MV V2 mean Ao V2 mean : 259.3 cm/sec : 79.5 cm/sec : 104.6 cm/sec : 189.7 cm/sec Ao max PG PA mean PG MV mean PG Ao V2 VTI: 48.4 cm : 26.9 mmHg Ao mean PG PA Accel Time MV V2 VTI: 30.8 cm : 15.8 mmHg PA V2 mean : 48.8 cm/sec Reading Physician:06:07 PM Assessment & Plan Active issues and reason for admission 56-year-old male with dull ache chest pressure and intermittent sharp chest pain admitted for ACS evaluation, obesity, likely contributory sCHF. -- Serial troponin, lipid/statin acute sCHF w/ lowest Cr in 3 months --diurese lasix 40IV BID, hold home torsemide 100-150mg per day, i/o, consider qd weight - obese -Continue with IV Lasix diuresis -Recheck echocardiogram is done and reveals slightly lower EF in the range of 25 -30%. - I Did call cardiology Dr. Díaz for consultation -We will also check influenza PCR given some of his upper respiratory symptoms. Chronic issues known prior to admission, present on admission . Obesity hypoventilation syndrome. VDRF On 2-3L home 2. History of pneumonia. Obstructive sleep apnea, on BiPAP . systolic Congestive heart failure 2010, showing an LVEF of 35% to 40% >> 25% prior to AvR porcine for AoStenosis >> EF 45% 03/2016 / . Hypertension / runs of V-tach / Chronic atrial fibrillation on Coumadin. . Coagulopathy with elevated INR and PTT, status post previous workup. . Morbid obesity. . Gout . Degenerative joint disease. . History of nephrolithiasis. history of renal failure -- Resume home meds Diet cardiac DVT prophylaxis lovenox Code full Disposition OBS status Assessment and plan were discussed with patient Time spent 30 minutes Roxanne Pantoja MD Apr 28, 2016 11:51
--- NOTE | 2016-04-28 13:50 | NUR ---
Pain/Tele Patient complained of generalized achiness. Pt given Tylenol in previous shift . Pt highly anxious regarding BNP levels . Patient complained of some dizziness when sitting at side of bed and right after I received call from Tele monitor that patient had just had a 5 beat run of V-tach this was the second time patient had this am. Dizziness quickly resolved. Pt to be nasal swabbed for flu virus.
--- NOTE | 2016-04-28 16:51 | NUR ---
Chest pain Patient complained of midsternal chest pressure . Pt had been having few episodes of V-tach 5-8 beat runs today. Ekg done Creative Assistant KENJI here at this time and assessed patient. Chest pain is better, 02 increased to 4l nasal canula . No change in EKG and no new orders thus far. Vitals taken and recorded.
--- NOTE | 2016-04-28 20:02 | PCM.CHPCAR ---
Consult Subjective Date of service Apr 28, 2016 Date of admit Apr 26, 2016 at 17:51 Provider Requesting Consult Primary Care Physician Primary Care Provider: Maya Bruno MD History of Present Illness This is a very pleasant 56 year old gentleman with morbid obesity, long- standing dilated nonischemic cardiomyopathy since 2009 with LV EF of 25-30%, CHF , history of aortic valve stenosis likely from the bicuspid aortic valve, status post bioprosthetic aortic valve replacement done on 07/2011 later complicated with DVT and PE found to have evidence of lupus anticoagulant and was started on warfarin, has history of chronic atrial fibrillation since 2012, 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 The patient states that starting from last Tuesday he has been experiencing on and off chest pressure in the middle of his chest and under his left breast sometimes radiating to left arm; chest pressure was aggravated with deep breathing and movement and left arm movement. He was getting this chest pressure only when he was sitting. His physical activity is very limited and he uses walker or wheelchair. He also periodically felt nauseous and clammy and felt palpitations and felt a little lightheaded. Also noticed worsening dyspnea on exertion and decided to come to ER. In March 2016 he had pneumonia and since discharge he has been using oxygen 24/. He has past history of using tobacco, states that he does not smoke anymore, denies using alcohol, or recreational drug use. Denies family history of coronary artery disease. Review of Systems Review of Systems 12 points of review of systems are negative except the ones mentioned in history of present illness PMH Past Medical History Obesity hypoventilation syndrome. VDRF On 2-3L home 2. History of pneumonia. Obstructive sleep apnea, on BiPAP . nonischemic dilated cardiomyopathy . Hypertension / runs of nonsustained V-tach / Chronic atrial fibrillation on Coumadin. . Morbid obesity. . Gout . Degenerative joint disease. . History of nephrolithiasis. history of renal failure Bilateral knee arthroscopy. Past Surgical History . Tear duct surgery as a child. Bedside Blood Glucose: 97 Scheduled Allopurinol (Allopurinol) 300 Mg Tablet 300 MG PO DAILY (Reported) Duloxetine (Duloxetine) 30 Mg Capsule.dr 60 MG PO DAILY (Reported) Potassium Chloride (Potassium Chloride) 20 Meq Tab.er.prt 40 MEQ PO DAILY ( Reported) Torsemide (Torsemide) 100 Mg Tablet 100 MG PO DAILY (Reported) Warfarin Sodium (Warfarin Sodium) 4 Mg Tablet 4 MG PO DAILY (Reported) Scheduled PRN Trazodone (Trazodone) 50 Mg Tablet 50-300 MG PO HS PRN PRN For Sleep (Reported) Discontinued Medications Cefdinir (Cefdinir) 300 Mg Capsule 300 MG PO BID Doxycycline Hyclate (Vibramycin) 100 Mg Capsule 100 MG PO BID Warfarin Sodium (Coumadin) 3 Mg Tablet 6 MG PO ONCE@17 Current Inpatient Medications Current Medications Allopurinol 300 mg DAILY PO Last administered on 04/28/16 09:04; Admin Dose 300 MG; Start 04/27/16 at 08:30 Potassium Chloride 40 meq DAILY PO Last administered on 04/28/16 09:04; Admin Dose 40 MEQ; Start 04/27/16 at 08:30; Stop 04/28/16 at 17:54; Status DC Aspirin 81 mg DAILY PO Last administered on 04/28/16 09:04; Admin Dose 81 MG; Start 04/27/16 at 08:30 Nitroglycerin 1 inch Q6H PRN TOPICAL; Start 04/26/16 at 20:40 Nitroglycerin 0.4 mg Q5MIN PRN SL; Start 04/26/16 at 20:40 Morphine Sulfate 1-5 mg prn pain not relie... Q5M PRN IVPUSH; Start 04/26/16 at 20:40 Pharmacy Consult 1 ea DAILY@17 XX; Start 04/27/16 at 17:00; Stop 04/27/16 at 17: 00; Status DC Furosemide 40 mg BID IVPUSH Last administered on 04/28/16 09:02; Admin Dose 40 MG; Start 04/27/16 at 08:30; Stop 04/28/16 at 17:54; Status DC Duloxetine HCl 60 mg DAILY PO Last administered on 04/28/16 09:04; Admin Dose 60 MG; Start 04/27/16 at 08:30 Trazodone HCl 100 mg HS PRN PO; Start 04/27/16 at 00:40 Atorvastatin Calcium 40 mg HS PO Last administered on 04/27/16 20:55; Admin Dose 40 MG; Start 04/27/16 at 21:00 Pharmacy Consult 1 ea DAILY@17 XX; Start 04/28/16 at 17:00 Warfarin Sodium 4 mg DAILY@17 PO; Start 04/28/16 at 17:00; Stop 04/28/16 at 17: 01; Status DC Digoxin 0.25 mg DAILY@12 PO; Start 04/29/16 at 12:00 Metoprolol Succinate 12.5 mg DAILY PO; Start 04/28/16 at 17:50 Torsemide 40 mg DAILY PO; Start 04/29/16 at 08:30 Spironolactone 25 mg DAILY PO; Start 04/29/16 at 08:30 Allergies: Coded Allergies: cefdinir (Unverified Allergy, Intermediate, 04/27/16) or doxycycline doxycycline (Unverified Allergy, Intermediate, 04/27/16) or to cefdinir azithromycin (Verified Allergy, Mild, 03/17/16) mild chill reportedly on 03/16/16 Heparin Analogues (Verified Allergy, Unknown, 04/26/16) Social History Hx Alcohol Use: NoHx Substance Use: NoHx Tobacco Use: Yes (quit in mar 2009) Smoking Status: Former Smoker Exam Vital Signs Vital Sign - Last Date Time Temp Pulse Resp B/P Pulse Ox O2 Delivery O2 Flow Rate FiO2 04/28/16 17:21 Supplement Oxygen CPAP/BIPAP 04/28/16 16:10 82 20 107/73 95 3.00 04/28/16 09:58 36.2 Intake and Output 04/27/16 04/27/16 04/28/16 Cumulative From/Thru 15:00 23:00 07:00 04/26/16 14:49 - 04/28/16 01:44 Intake Total 1400 ml 2840 ml Output Total 900 ml 2175 ml Balance 500 ml 665 ml Intake Oral 1400 ml 2840 ml Output Urine Total 900 ml 2175 ml # Voids 3 # Bowel Movements 0 Objective Constitutional: no acute distress; morbid obesity Eyes: sclerae anicteric ENT: Mucous membranes moist Neck: supple, no thyromegaly. Pulmo: decreased breathing sounds bilaterally, with slight bibasilar crackles more on the right, no wheezing Cardiovascular: irregularly irregular, no murmur appreciated, JVP hard to assess Extremities: does not look like that he has LE edema although it is hard to say because his morbid obesity Abdomen: Nontender with palpation Skin: No rash Neuro: A&O x3, no gross abnormalities Lab and Diagnostics Result Diagram: 04/28/16 0608 04/28/16 0608 12-lead ECG On telemetry atrial fibrillation rate controlled with periodic PVCs and episodes of nonsustained ventricular tachycardia. Additional Diagnostics: Echocardiogram Report - 04/27/2016 Interpretation Summary Limited Echo to assess LV function: Echo poor quality due to body habitus. 1) Grossly, LV function estimated at 25-30%. Wall motion difficult to assess due to limited visualization. 2) No pericardial effusion present. 3) Compared to the Echo done 03/17/2016, LVEF appears lower on today's study. I think EF on prior study is closer to 35% on my assessment. Aortic Valve: There is a porcine aortic valve. The prosthetic aortic valve is not well visualized. 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 # Chest pain - chest pain he describes is atypical and has a pleuritic features ; taking in mind the quality of chest pain and that he has been having this chest pain on and off constantly since 04/23/2016 and that his troponins has been negative, doubt that he has ACS. During the encounter today the patient had again chest pressure and EKG was done which showed atrial fibrillation rate controlled without ischemic changes. # Dilated cardiomyopathy - per medical records is considered nonischemic because patient had cardiac catheterization in the past at some point which reportedly did not show significant coronary artery disease. It is very hard to assess his volume status because of his morbid obesity, but the patient is able to lay down flat in the bed currently which is reassuring and speaks for likely adequate volume status currently. The patient would benefit from ICD for primary prevention which was suggested in the past and never happened likely from patients not following up with cardiology. The case was discussed with [employer] Dr. Reese who also spoke and examined the patient. Would recommend : - to stop Furosemide iv - Start Torsemide 40 mg PO (as outpatient he was taking Torsemide 100 mg daily) - Will also start him on Spironolactone 25 mg daily and will stop Potassium supplements. - To help his cardiac function, will start him on Digoxin 0.25 mg daily - Will start him on Metoprolol succinate 12.5 mg daily which would be beneficial for his Cardiomyopathy and episodes of nonsustained ventricular tachycardia. It can be uptitrated later depending on BP. - At this point there is no room for BP to start him on Lisinopril which could be considered down the road. # nonsustained ventricular tachycardia. # Atrial fibrillation rate controlled # history of aortic valve stenosis likely from the bicuspid aortic valve, status post bioprosthetic aortic valve replacement done on 07/2011 # Hx of DVT and PE # chronically anticoagulated on warfarin. # morbid obesity # history of severe sleep apnea uses BiPAP machine, # history of hypoventilation syndrome #chronic hypoxemia; Time spent 80 minutes Attending Statement I saw and evaluated the patient. I agree with the findings and the plan of care as documented in the mid-level practitioners note. Tristin Jaeger PA-C Apr 28, 2016 18:24 Edil Reese MD May 03, 2016 08:52
[2016-04-28] MEDS: MeTOProlol XL 25 mg ER24 Tablet PO SCH (21:53)
[2016-04-29] VITALS (8 sets, daily range): BP systolic 102–139; BP diastolic 68–89; PULSE 72–101; RESP 18–22; O2SAT 91–97
--- NOTE | 2016-04-29 01:04 | NUR ---
Tele tele called to say pt had an 8 beat run of v-tach. pt was asymptomatic. he was repositioning himself in bed with the help of the TOUCH UP EDGER at the time. BP was 120/80, and he's back to a-fib in the 90s. teacher of the emotionally disturbed changed some of pts medications today and he was given his first dose of metoprolol tonight. notified of the non-sustained v-tach. will continue to monitor.
[2016-04-29 07:21] LABS: BASOPHILS % (AUTO) 0.3 % (0-3); EOSINOPHILS % (AUTO) 10.9 % (0-5); MONOCYTES % (AUTO) 5.4 % (4-12); Mean Corpuscular Hemoglobin 24.3 pg (27.0-35.0); NEUTROPHILS % (AUTO) 77.8 % (40-74); Platelet Count 158 bil/L (150-400)
[2016-04-29 07:30] LABS: INR 2.44 ratio
--- NOTE | 2016-04-29 08:58 | PCM.PHAPRO ---
Progress Warfarin Management by Pharmacy: - Indication: A-Fib/Bioprosthetic Aortic Valve -INR Goal: 2 - 3 -Home Dose: warfarin 6mg po daily -Inr Trends: 04/26 Inr: 2.35 warfarin 6mg 04/27 Inr 2.84 warfarin 2.5mg 04/28 Inr 2.76 warfarin 4mg 04/29 Inr 2.44 Plan: pt stated his home dose was warfarin 4mg rather than 6mg and received 2.5mg on 04/27. inr remains therapeutic at 2.44 today and will continue with home dose of 4mg this evening. H/H 11.4/38 [address] Jackie Theodore [facility] Apr 29, 2016 08:57
[2016-04-29] MEDS: DULoxetine 30 mg DR Capsule PO SCH (10:14)
[2016-04-29] MEDS: MeTOProlol XL 25 mg ER24 Tablet PO SCH (10:14)
--- NOTE | 2016-04-29 13:10 | PCM.PNMED ---
Subjective Date of Service Apr 29, 2016 Subjective Patient notes he feels still feels fairly dyspneic and feels like it is hard getting a deep breath. He tells me that his oxygen requirements are gradually increasing over at least the past several days. Cardiology did see him and make some recommendations which have been instituted as of yesterday late afternoon. On telemetry he only had one isolated run 8 beats of V. tach around midnight.. Exam Vital Signs Vital Sign - Last Date Time Temp Pulse Resp B/P Pulse Ox O2 Delivery O2 Flow Rate FiO2 04/29/16 10:28 36.8 101 18 139/85 91 Nasal Cannula 3.00 Intake and Output 04/28/16 04/28/16 04/29/16 Cumulative From/Thru 15:00 23:00 07:00 04/26/16 14:49 - 04/29/16 03:57 Intake Total 400 ml 1396 ml 4636 ml Output Total 1275 ml 1000 ml 4450 ml Balance -875 ml 396 ml 186 ml Intake Oral 400 ml 1396 ml 4636 ml Output Urine Total 1275 ml 1000 ml 4450 ml # Voids 3 # Bowel Movements 1 1 Exam Constitutional: Morbidly obese male sitting at bedside Head: Normocephalic atraumatic Chest: Clear to auscultation except for some decreased breath sounds at his bases Cor: Irregular regular rate and rhythm S1-S2 Abdomen: Soft nontender bowel sounds present Extremities: Trace bilateral lower extremity edema with chronic venous stasis changes Neuro: Alert and oriented 3, motor strength is intact bilaterally Lab and Diagnostics Laboratory Tests 72 Hours Test 04/26/16 15:01 04/26/16 21:39 04/26/16 23:13 04/27/16 05:42 White Blood Count 5.7th/mm3 (3.8-10.1) 5.0th/mm3 (3.8-10.1) Red Blood Count 4.71mil/mm3 (4.40-5.80) 4.24mil/mm3 (4.40-5.80) Hemoglobin 11.6g/dL (13.8-17.2) 10.3g/dL (13.8-17.2) Hematocrit 38.2% (41.0-50.0) 34.5% (41.0-50.0) Mean Corpuscular Volume 81.1fL (81-100) 81.4fL (81-100) Mean Corpuscular Hemoglobin 24.6pg (27.0-35.0) 24.3pg (27.0-35.0) Mean Corpuscular Hemoglobin Concent 30.4% (32.0-37.0) 29.9% (32.0-37.0) Red Cell Distribution Width 16.3% (12.3-15.4) 16.2% (12.3-15.4) Platelet Count 183bil/L (150-400) 160bil/L (150-400) Neutrophils (%) (Auto) 72.2% (40-74) 71.0% (40-74) Lymphocytes (%) (Auto) 7.1% (14-46) 8.9% (14-46) Monocytes (%) (Auto) 7.1% (4-12) 6.2% (4-12) Eosinophils (%) (Auto) 12.6% (0-5) 13.3% (0-5) Basophils (%) (Auto) 0.5% (0-3) 0.2% (0-3) Prothrombin Time 25.6sec (8.1-12.5) 31.0sec (8.1-12.5) Prothromb Time International Ratio 2.35ratio 2.84ratio D-Dimer < 0.5mg/L FEU (<0.50) Sodium Level 139mEq/L (134-144) 137mEq/L (134-144) Potassium Level 3.7mEq/L (3.5-5.2) 4.2mEq/L (3.5-5.2) Chloride Level 97mEq/L (97-108) 97mEq/L (97-108) Carbon Dioxide Level 30mmol/L (18-29) 26mmol/L (18-29) Blood Urea Nitrogen 10mg/dL (6-24) 13mg/dL (6-24) Creatinine 1.07mg/dL (0.76-1.27) 1.13mg/dL (0.76-1.27) Estimat Glomerular Filtration Rate 77mL/min (>59) 72mL/min (>59) Glucose Level 92mg/dL (60-99) 93mg/dL (60-99) Calcium Level 8.9mg/dL (8.5-10.1) 8.6mg/dL (8.5-10.1) Magnesium Level 1.8mg/dL (1.6-2.6) Total Bilirubin 0.9mg/dL (0.0-1.2) Aspartate Amino Transf (AST/SGOT) 9U/L (0-50) Alanine Aminotransferase (ALT/SGPT) 5U/L (0-44) Alkaline Phosphatase 85U/L (25-150) Troponin T < 0.010ug/L (0.0-0.011) 0.010ug/L (0.0-0.011) < 0.010ug/L (0.0-0.011) Pro-B-Type Natriuretic Peptide 3115pg/mL (0-121) Total Protein 7.4g/dL (6.4-8.4) Albumin 3.6g/dL (3.4-5.0) Hold Urine Received (Received) Triglycerides Level 95mg/dL (0-149) Cholesterol Level 94mg/dL (100-199) LDL Cholesterol, Calculated 48.000mg/dL (0-99) VLDL Cholesterol 19.000mg/dL HDL Cholesterol 27mg/dL (>39) Cholesterol/HDL Ratio 3.48 (0.0-4.4) Test 04/28/16 06:08 04/29/16 06:53 White Blood Count 5.9th/mm3 (3.8-10.1) 7.5th/mm3 (3.8-10.1) Red Blood Count 4.44mil/mm3 (4.40-5.80) 4.69mil/mm3 (4.40-5.80) Hemoglobin 10.7g/dL (13.8-17.2) 11.4g/dL (13.8-17.2) Hematocrit 36.2% (41.0-50.0) 38.0% (41.0-50.0) Mean Corpuscular Volume 81.5fL (81-100) 81.0fL (81-100) Mean Corpuscular Hemoglobin 24.1pg (27.0-35.0) 24.3pg (27.0-35.0) Mean Corpuscular Hemoglobin Concent 29.6% (32.0-37.0) 30.0% (32.0-37.0) Red Cell Distribution Width 16.2% (12.3-15.4) 16.4% (12.3-15.4) Platelet Count 152bil/L (150-400) 158bil/L (150-400) Neutrophils (%) (Auto) 76.5% (40-74) 77.8% (40-74) Lymphocytes (%) (Auto) 6.6% (14-46) 5.2% (14-46) Monocytes (%) (Auto) 5.1% (4-12) 5.4% (4-12) Eosinophils (%) (Auto) 11.2% (0-5) 10.9% (0-5) Basophils (%) (Auto) 0.3% (0-3) 0.3% (0-3) Prothrombin Time 30.1sec (8.1-12.5) 26.6sec (8.1-12.5) Prothromb Time International Ratio 2.76ratio 2.44ratio Sodium Level 137mEq/L (134-144) 140mEq/L (134-144) Potassium Level 3.9mEq/L (3.5-5.2) 4.6mEq/L (3.5-5.2) Chloride Level 95mEq/L (97-108) 97mEq/L (97-108) Carbon Dioxide Level 30mmol/L (18-29) 30mmol/L (18-29) Blood Urea Nitrogen 13mg/dL (6-24) 13mg/dL (6-24) Creatinine 1.10mg/dL (0.76-1.27) 1.11mg/dL (0.76-1.27) Estimat Glomerular Filtration Rate 74mL/min (>59) 73mL/min (>59) Glucose Level 165mg/dL (60-99) 119mg/dL (60-99) Calcium Level 8.5mg/dL (8.5-10.1) 9.1mg/dL (8.5-10.1) Result Diagram: 04/29/16 0653 04/29/16 0653 Cardiac Echo Impressions Name: MASTER FREEMAN D ate: 04/27/2016 Height: 72 in Hospital Exam Location: [facility] Weight: 498 lb Gender: Male BSA: 3.1 m2 : 1960 Age: 56 yrs BP: 96/68 m mHg Reason For Study: Congestive Heart Failure History: AVR-porcine Ordering Physician: HOSPITALIST [facility] Performed By: Arabella Campbell Referring Physician: Dr. Alexander Bruno Interpretation Summary Limited Echo to assess LV function: Echo poor quality due to body habitus. 1) Grossly, LV function estimated at 25-30%. Wall motion difficult to assess due to limited visualization. 2) No pericardial effusion present. 3) Compared to the Echo done 03/17/2016, LVEF appears lower on today's study. I think EF on prior study is closer to 35% on my assessment. Procedure: A two-dimensional transthoracic echocardiogram with color flow and Doppler was performed. The study quality was technically difficult. Comparison is made with the echocardiogram of 03/17/2016. A contrast injection of Definity was performed to improve assessment of LV function. No complications with contrast. The patient was in atrial fibrillation with heart rates between 65-85 bpm during the exam. Left Ventricle: The left ventricle is markedly dilated. Left ventricular wall thickness is borderline increased. The ejection fraction is estimated to be 25-30%. Regional wall motion abnormalities cannot be excluded due to limited visualization. Diastolic function could not be accurately assessed due to unobtainable data. Right Ventricle: The right ventricle is not well visualized. Atria: The left atrium is not well visualized. Right atrium not well visualized. Mitral Valve: The mitral valve is grossly normal. There is at least trace mitral regurgitation. Aortic Valve: There is a porcine aortic valve. The prosthetic aortic valve is not well visualized. Tricuspid Valve: The tricuspid valve is not well visualized. Pulmonary artery pressures cannot be estimated because of the lack of a measurable TR jet velocity. Pulmonic Valve: The pulmonic valve is not well visualized. There is mild pulmonic regurgitation. Pericardium/ Pleura There is no pericardial effusion. MMode/2D Measurements & Calculations LVIDd LV martinez. diameter/BSA (cm/m^2) LV sys. diameter/BSA (cm/m^2) : 7.9 cm LVIDs : 7.1 cm FS: 10.0 % IVSd : 0.9cm LVPWd : 1.1 cm Doppler Measurements & Calculations Ao V2 max PA V2 max MV V2 mean Ao V2 mean : 259.3 cm/sec : 79.5 cm/sec : 104.6 cm/sec : 189.7 cm/sec Ao max PG PA mean PG MV mean PG Ao V2 VTI: 48.4 cm : 26.9 mmHg Ao mean PG PA Accel Time MV V2 VTI: 30.8 cm : 15.8 mmHg PA V2 mean : 48.8 cm/sec Reading Physician:06:07 PM Assessment & Plan Active issues and reason for admission 56-year-old male with dull ache chest pressure and intermittent sharp chest pain admitted for ACS evaluation, obesity, likely contributory sCHF. -- Serial troponin, lipid/statin acute sCHF w/ lowest Cr in 3 months --diurese lasix 40IV BID, hold home torsemide 100-150mg per day, i/o, consider qd weight - obese -Continue with IV Lasix diuresis -Recheck echocardiogram is done and reveals slightly lower EF in the range of 25 -30%. - I Did call cardiology Dr. Díaz for consultation -We will also check influenza PCR given some of his upper respiratory symptoms. -Influenza screen was negative -Appreciate cardiology consultation with alteration in medication regimen.- - We will go ahead and order to view chest x-ray today to make sure there is no infiltrates/changes that are not audible on exam Chronic issues known prior to admission, present on admission . Obesity hypoventilation syndrome. VDRF On 2-3L home 2. History of pneumonia. Obstructive sleep apnea, on BiPAP . systolic Congestive heart failure 2010, showing an LVEF of 35% to 40% >> 25% prior to AvR porcine for AoStenosis >> EF 45% 03/2016 / . Hypertension / runs of V-tach / Chronic atrial fibrillation on Coumadin. . Coagulopathy with elevated INR and PTT, status post previous workup. . Morbid obesity. . Gout . Degenerative joint disease. . History of nephrolithiasis. history of renal failure -- Resume home meds Diet cardiac DVT prophylaxis lovenox Code full Disposition OBS status Assessment and plan were discussed with patient Time spent 30 minutes Roxanne Pantoja MD Apr 29, 2016 13:10
--- NOTE | 2016-04-29 15:20 | NUR ---
Tele Report engineer technician reports x16 beats Vtach for this patient. Nonsustained, currently in Afib 90's. Checked on patient, reports no symptoms. VSS, asymptomatic.
--- NOTE | 2016-04-29 16:57 | DRSVH ---
PROCEDURE: X-RAY CHEST, TWO VIEWS ([id number]) INDICATIONS: dyspnea TECHNIQUE: 2 views of the chest were acquired. COMPARISON: [facility], CR, XR CHEST 1VW (PORTABLE), 04/26/2016, 14:49. [facility], CR, XR CHEST 1VW (PORTABLE), 04/17/2016, 20:00. [facility], CR, XR CHEST 1VW (POR TABLE), 03/20/2016, 5:25. [facility], CR, XR CHEST 1VW (PORTABLE), 03/18/2016, 11:32. [facility], CR, XR CHEST 2VW, 03/16/2016, 13:47. FINDINGS: Surgical changes and devices: Median sternotomy clips. Lungs and pleura: No pleural effusions or pneumothorax. There is prominence of the pulmonary vascul ature and mild, diffuse bilateral interstitial densities are present. Mediastinum: Mediastinal contours are normal. Heart size is enlarged as before. Bones and chest wall: No suspicious bony abnormalities. Soft tissues appear unremarkable. IMPRESSION: No new suspicious for chronic CHF. Correlate clinically. Dictated by: Manny Bhatt RRA Interpreted: Linnea Mobley MD on 04/29/2016 at 16:56 Transcribed by: NICOLÁS on 04/29/2016 at 16:56 Approved by: Linnea Mobley MD, PhD on 05/01/2016 at 9:49
[2016-04-30] VITALS (8 sets, daily range): BP systolic 106–132; BP diastolic 75–87; PULSE 60–89; RESP 20–22; O2SAT 93–100
[2016-04-30 06:34] LABS: BASOPHILS % (AUTO) 0.3 % (0-3); EOSINOPHILS % (AUTO) 12.8 % (0-5); MONOCYTES % (AUTO) 4.1 % (4-12); Mean Corpuscular Hemoglobin 24.4 pg (27.0-35.0); NEUTROPHILS % (AUTO) 75.2 % (40-74); Platelet Count 173 bil/L (150-400)
[2016-04-30 06:45] LABS: INR 2.81 ratio
[2016-04-30] MEDS: DULoxetine 30 mg DR Capsule PO SCH (13:37)
[2016-04-30] MEDS: MeTOProlol XL 25 mg ER24 Tablet PO SCH (13:38)
--- NOTE | 2016-04-30 18:26 | PCM.PNMED ---
Subjective Date of Service Apr 30, 2016 Subjective Patient was examined at bedside today. Patient denies any chest pain, shortness of breath, nausea, vomiting, diarrhea. Patient did complain of generalized body aches and lower extremity leg pain transient Exam Vital Signs Vital Sign - Last Date Time Temp Pulse Resp B/P Pulse Ox O2 Delivery O2 Flow Rate FiO2 04/30/16 16:46 36.1 60 20 124/79 100 CPAP 4.00 Intake and Output 04/29/16 04/29/16 04/30/16 Cumulative From/Thru 15:00 23:00 07:00 04/26/16 14:49 - 04/30/16 06:54 Intake Total 1310 ml 892 ml 760 ml 7598 ml Output Total 625 ml 1500 ml 675 ml 7250 ml Balance 685 ml -608 ml 85 ml 348 ml Intake Oral 1310 ml 892 ml 760 ml 7598 ml Output Urine Total 625 ml 1500 ml 675 ml 7250 ml # Voids 3 # Bowel Movements 0 1 0 2 Exam Physical Exam: GEN: Patient was awake, alert, responding appropriately to questions HEENT: PERRLA, EOMI, Neck soft supple, trachea midline, nomocephalic/atraumatic CV: +S1/S2, RRR, no murmurs auscultated Respiratory: CTAB, no wheezes, rales, rhonchi GI: +bowel sounds x4, soft, compressible, non TTP, morbidly obese EXT: +2 pitting edema, mild tenderness to palpation left greater than right however this morning the right was greater than left Neuro: CN II-XII grossly intact Psych: mood and affect were appropriate IVs and Medications Medications Reviewed: Medications were reviewed in detail Medications Current Medications Digoxin 0.25 mg DAILY@12 PO Last administered on 04/30/16 13:38; Admin Dose 0.25 MG; Start 04/29/16 at 12:00 Torsemide 40 mg DAILY PO Last administered on 04/30/16 13:37; Admin Dose 40 MG ; Start 04/29/16 at 08:30 Spironolactone 25 mg DAILY PO Last administered on 04/30/16 13:36; Admin Dose 25 MG; Start 04/29/16 at 08:30 Warfarin Sodium 4 mg DAILY@17 PO Last administered on 04/29/16 17:24; Admin Dose 4 MG; Start 04/29/16 at 17:00; Stop 04/29/16 at 17:01; Status DC Lab and Diagnostics Result Diagram: 04/30/1651904/30/16 05 Cardiac Echo Impressions Name: MASTER FREEMAN MStudy D ate: 04/27/2016 Height: 72 in Hospital Exam Location: [facility] Weight: 498 lb Gender: Male BSA: 3.1 m2 : 1960 Age: 56 yrs BP: 96/68 m mHg Reason For Study: Congestive Heart Failure History: AVR-porcine Ordering Physician: HOSPITALIST [facility] Performed By: Arabella Campbell Referring Physician: Dr. Alexander Bruno Interpretation Summary Limited Echo to assess LV function: Echo poor quality due to body habitus. 1) Grossly, LV function estimated at 25-30%. Wall motion difficult to assess due to limited visualization. 2) No pericardial effusion present. 3) Compared to the Echo done 03/17/2016, LVEF appears lower on today's study. I think EF on prior study is closer to 35% on my assessment. Procedure: A two-dimensional transthoracic echocardiogram with color flow and Doppler was performed. The study quality was technically difficult. Comparison is made with the echocardiogram of 03/17/2016. A contrast injection of Definity was performed to improve assessment of LV function. No complications with contrast. The patient was in atrial fibrillation with heart rates between 65-85 bpm during the exam. Left Ventricle: The left ventricle is markedly dilated. Left ventricular wall thickness is borderline increased. The ejection fraction is estimated to be 25-30%. Regional wall motion abnormalities cannot be excluded due to limited visualization. Diastolic function could not be accurately assessed due to unobtainable data. Right Ventricle: The right ventricle is not well visualized. Atria: The left atrium is not well visualized. Right atrium not well visualized. Mitral Valve: The mitral valve is grossly normal. There is at least trace mitral regurgitation. Aortic Valve: There is a porcine aortic valve. The prosthetic aortic valve is not well visualized. Tricuspid Valve: The tricuspid valve is not well visualized. Pulmonary artery pressures cannot be estimated because of the lack of a measurable TR jet velocity. Pulmonic Valve: The pulmonic valve is not well visualized. There is mild pulmonic regurgitation. Pericardium/ Pleura There is no pericardial effusion. MMode/2D Measurements & Calculations LVIDd LV martinez. diameter/BSA (cm/m^2) LV sys. diameter/BSA (cm/m^2) : 7.9 cm LVIDs : 7.1 cm FS: 10.0 % IVSd : 0.9cm LVPWd : 1.1 cm Doppler Measurements & Calculations Ao V2 max PA V2 max MV V2 mean Ao V2 mean : 259.3 cm/sec : 79.5 cm/sec : 104.6 cm/sec : 189.7 cm/sec Ao max PG PA mean PG MV mean PG Ao V2 VTI: 48.4 cm : 26.9 mmHg Ao mean PG PA Accel Time MV V2 VTI: 30.8 cm : 15.8 mmHg PA V2 mean : 48.8 cm/sec Reading Physician:06:07 PM Assessment & Plan Active issues and reason for admission 56-year-old male with dull ache chest pressure and intermittent sharp chest pain admitted for ACS evaluation, obesity, likely contributory sCHF. Chest pain -- Serial troponins negative -- Unremarkable lipids -- Continue atorvastatin 40 mg daily at bedtime Acute CHF w/ lowest Cr in 3 months -- Continue torsemide 40 mg daily torsemide per recommendations from cardiology -- Spironolactone 25 daily per recommendations from cardiology -- Digoxin 0.25 mg daily at noon per recommendations by cardiology -- Continue aspirin 81 mg daily Infection workup -- Influenza screen negative -- Chest x-ray no signs of acute pulmonary processes Chronic issues known prior to admission, present on admission . Obesity hypoventilation syndrome. VDRF On 2-3L home 2. History of pneumonia. Obstructive sleep apnea, on BiPAP . systolic Congestive heart failure 2010, showing an LVEF of 35% to 40% >> 25% prior to AvR porcine for AoStenosis >> EF 45% 03/2016 / . Hypertension / runs of V-tach / Chronic atrial fibrillation on Coumadin. . Coagulopathy with elevated INR and PTT, status post previous workup. . Morbid obesity. . Gout . Degenerative joint disease. . History of nephrolithiasis. history of renal failure Diet cardiac DVT prophylaxis lovenox Code full Disposition patient qualifies for inpatient status. Patient seems to be very lethargic and not invested in his care. At this point in time it seems that the patient no longer has any active cardiac processes. We will discuss discharge planning with patient. PT has been ordered. Zehra Lea DO Apr 30, 2016 18:26
--- NOTE | 2016-04-30 20:33 | NUR ---
Chest pain Patient complained of chest pressure again today, pt awakens from rest and is usually lying on his right side when complains of it. Pt with no other symptoms, no increased sob noted, no diaphoresis or arm.jaw pain, no nausea. Patient remains on 02 4l at this time. Tele afib
--- NOTE | 2016-04-30 21:57 | NUR ---
Activity Pt up OOB without assistance to BSC He uses the urinal at the bedside. Consistent with call light. Reviewed fall precautions which included notifying the nurse prior to getting up OOB Pt verbalized understanding
[2016-05-01] VITALS (7 sets, daily range): BP systolic 101–118; BP diastolic 63–91; PULSE 72–95; RESP 20–22; O2SAT 92–100
--- NOTE | 2016-05-01 02:27 | NUR ---
Pain Pt awakened out of sleep. Sitting up at side of bed requesting rusty juice. He states that "My heart felt like it was coming out of my chest". He denies current chest pain. He finishes two rusty juices. Able to stand up and move to commode while bed is fixed. REturned to bed. Given 3 tabs tylenol for overall joint pain. Will cont to monitor.
[2016-05-01 06:54] LABS: BASOPHILS % (AUTO) 0.2 % (0-3); EOSINOPHILS % (AUTO) 15.1 % (0-5); MONOCYTES % (AUTO) 6.4 % (4-12); Mean Corpuscular Hemoglobin 24.1 pg (27.0-35.0); Mean Corpuscular Volume 80.4 fL (81-100); NEUTROPHILS % (AUTO) 70.2 % (40-74); Platelet Count 167 bil/L (150-400)
[2016-05-01 07:04] LABS: INR 3.09 ratio
[2016-05-01] MEDS: DULoxetine 30 mg DR Capsule PO SCH (09:02)
[2016-05-01] MEDS: MeTOProlol XL 25 mg ER24 Tablet PO SCH (09:03)
--- NOTE | 2016-05-01 10:51 | NUR ---
Social Work: JOVANNA Patient refused to sign JOVANNA. sheet metal worker helper left a copy of JOVANNA with patient at bedside. Delmis Panda, GOPI, ACM
--- NOTE | 2016-05-01 10:56 | NUR ---
Evaluation completed. Please go to "Notes" then click on "Assessments and Notes" (bottom left corner of screen). Then select appropriate discipline tab on top of screen.
--- NOTE | 2016-05-01 13:55 | NUR ---
Case management D: Inpatient status effective 04/30/15. Per [place] DEVELOPMENT ASSISTANT, note, pt is refusing to sign MAYA.
--- NOTE | 2016-05-01 15:30 | NUR ---
patient asleep, requested to not be disturbed until dinner. Addendum: 05/01/16 at 1842 by NEELIMA PIERCE CNA Amended: Links added.
--- NOTE | 2016-05-01 15:48 | PCM.PNMED ---
Subjective Date of Service May 01, 2016 Subjective Patient was examined at bedside today. Patient denies any nausea, vomiting, diarrhea. Patient complains of waxing and waning chest pain and shortness of breath. Patient is currently concerned about being discharged home. Patient does not have a phone in the house and is concerned that if he were to have chest pain or shortness of breath or any type of event overnight that he would not have help readily available. Patient's brother who is also his power of secretary of state was present for the conversation. Exam Vital Signs Vital Sign - Last Date Time Temp Pulse Resp B/P Pulse Ox O2 Delivery O2 Flow Rate FiO2 05/01/16 13:34 96 05/01/16 11:00 36.5 22 118/91 94 Nasal Cannula 4.00 Intake and Output 04/30/16 04/30/16 05/01/16 Cumulative From/Thru 15:00 23:00 07:00 04/26/16 14:49 - 05/01/16 06:53 Intake Total 1320 ml 1700 ml 56224 ml Output Total 1600 ml 950 ml 9800 ml Balance -280 ml 750 ml 818 ml Intake Oral 1320 ml 1700 ml 74668 ml Output Urine Total 1600 ml 950 ml 9800 ml # Voids 3 6 # Bowel Movements 0 0 2 Exam Physical Exam: GEN: Patient was awake, alert, responding appropriately to questions HEENT: PERRLA, EOMI, Neck soft supple, trachea midline, nomocephalic/atraumatic CV: +S1/S2, RRR, positive murmur auscultated Respiratory: CTAB, no wheezes, rales, rhonchi GI: +bowel sounds x4, soft, compressible, non TTP EXT: no c/c bilateral lower extremity edema Neuro: CN II-XII grossly intact Psych: mood and affect were depressed IVs and Medications Medications Reviewed: Medications were reviewed in detail Medications Current Medications Warfarin Sodium 4 mg DAILY@17 PO Last administered on 04/29/16t 17:24; Admin Dose 4 MG; Start 04/29/16 at 17:00; Stop 04/29/16 at 17:01; Status DC Lab and Diagnostics Result Diagram: 05/01/1662505/01/16625 Cardiac Echo Impressions Name: DALTON FREEMANY MStudy D ate: 04/27/2016 Height: 72 in Hospital Exam Location: [facility] Weight: 498 lb Gender: Male BSA: 3.1 m2 : 1960 Age: 56 yrs BP: 96/68 m mHg Reason For Study: Congestive Heart Failure History: AVR-porcine Ordering Physician: HOSPITALIST [facility] Performed By: Arabella Campbell Referring Physician: Dr. Alexander Bruno Interpretation Summary Limited Echo to assess LV function: Echo poor quality due to body habitus. 1) Grossly, LV function estimated at 25-30%. Wall motion difficult to assess due to limited visualization. 2) No pericardial effusion present. 3) Compared to the Echo done 03/17/2016, LVEF appears lower on today's study. I think EF on prior study is closer to 35% on my assessment. Procedure: A two-dimensional transthoracic echocardiogram with color flow and Doppler was performed. The study quality was technically difficult. Comparison is made with the echocardiogram of 03/17/2016. A contrast injection of Definity was performed to improve assessment of LV function. No complications with contrast. The patient was in atrial fibrillation with heart rates between 65-85 bpm during the exam. Left Ventricle: The left ventricle is markedly dilated. Left ventricular wall thickness is borderline increased. The ejection fraction is estimated to be 25-30%. Regional wall motion abnormalities cannot be excluded due to limited visualization. Diastolic function could not be accurately assessed due to unobtainable data. Right Ventricle: The right ventricle is not well visualized. Atria: The left atrium is not well visualized. Right atrium not well visualized. Mitral Valve: The mitral valve is grossly normal. There is at least trace mitral regurgitation. Aortic Valve: There is a porcine aortic valve. The prosthetic aortic valve is not well visualized. Tricuspid Valve: The tricuspid valve is not well visualized. Pulmonary artery pressures cannot be estimated because of the lack of a measurable TR jet velocity. Pulmonic Valve: The pulmonic valve is not well visualized. There is mild pulmonic regurgitation. Pericardium/ Pleura There is no pericardial effusion. MMode/2D Measurements & Calculations LVIDd LV martinez. diameter/BSA (cm/m^2) LV sys. diameter/BSA (cm/m^2) : 7.9 cm LVIDs : 7.1 cm FS: 10.0 % IVSd : 0.9cm LVPWd : 1.1 cm Doppler Measurements & Calculations Ao V2 max PA V2 max MV V2 mean Ao V2 mean : 259.3 cm/sec : 79.5 cm/sec : 104.6 cm/sec : 189.7 cm/sec Ao max PG PA mean PG MV mean PG Ao V2 VTI: 48.4 cm : 26.9 mmHg Ao mean PG PA Accel Time MV V2 VTI: 30.8 cm : 15.8 mmHg PA V2 mean : 48.8 cm/sec Reading Physician:06:07 PM Assessment & Plan Active issues and reason for admission 56-year-old male with dull ache chest pressure and intermittent sharp chest pain admitted for ACS evaluation, obesity, likely contributory sCHF. Chest pain -- Serial troponins negative -- Unremarkable lipids -- Continue atorvastatin 40 mg daily at bedtime Acute CHF w/ lowest Cr in 3 months -- Continue torsemide 40 mg daily torsemide per recommendations from cardiology -- Spironolactone 25 daily per recommendations from cardiology -- Digoxin 0.25 mg daily at noon per recommendations by cardiology -- Continue aspirin 81 mg daily Infection workup -- Influenza screen negative -- Chest x-ray no signs of acute pulmonary processes Chronic issues known prior to admission, present on admission . Obesity hypoventilation syndrome. VDRF On 2-3L home 2. History of pneumonia. Obstructive sleep apnea, on BiPAP . systolic Congestive heart failure 2010, showing an LVEF of 35% to 40% >> 25% prior to AvR porcine for AoStenosis >> EF 45% 03/2016 / . Hypertension / runs of V-tach / Chronic atrial fibrillation on Coumadin. . Coagulopathy with elevated INR and PTT, status post previous workup. . Morbid obesity. . Gout . Degenerative joint disease. . History of nephrolithiasis. history of renal failure Diet cardiac DVT prophylaxis lovenox Code full Disposition: The patient seems to be medically stable at this time. However there are still some concerns from the patient that he may still have some cardiac issues that would best be ruled out with a cardiac stress test. Unfortunately the patient is a bariatric patient and we do not have the capability of doing a cardiac stress test in this facility. The patient has been given other facilities to have the cardiac stress test as an outpatient. However the patient is extremely concerned as to what to do if he is home alone and a cardiac event happens. The patient is severely deconditioned and he is unable to walk even short distances to the bathroom without walker or assistance. Physical therapy came and evaluated the patient and recommends a long-term placement or [place] [facility] facility for the patient. The patient states that he would prefer this option as then he would not be alone as he does not feel that he is physically able to care for himself or his home alone at this time. The plan is for the patient to be transferred to a SNF or long- term care facility and the patient is to have an outpatient stress test at either [place] [facility] with Dr.Devorah Paz or [facility] with either Dr. Zayda Camara or Dr. Mauricio Mesa . At this time the patient's chest pain is most likely secondary to anxiety but a cardiac stress test would need to be done in order to rule this out completely. Zehra Lea DO May 01, 2016 15:48
--- NOTE | 2016-05-01 17:19 | NUR ---
Social Work: Initial Assessment Data and Assessment: [employer] met with patient and patient's brother, Cliff High, to discuss discharge planning. Patient stated that he had concerns about returning home because he is not able to complete ADL's as he was prior to admission. Patient feels that he has had a decline since admitting into the hospital. Patient is home alone and currently waiting for a caregiver to be assigned via [facility]. SW spoke with patient's PT and she is recommending LTC for the patient. [employer] notified patient that she called several facilities and currently only [facility] and [facility] have a Bariatric beds available. Patient was in agreement with clinical being given to both facilities. SW gave [facility] access and faxed patient's clinical to [facility]. SW will continue to follow patient for discharge planning needs. Plan: Patient is likely to discharge to SNF or home with HH and [facility] caregiver (once one is available). SW will continue to work with patient. SW will call patient's [employer] employment case manager Elly Friedman [phone] for follow-up on patient's caregiver. SW will continue to follow. Delmis Panda, GOPI, ACM
--- NOTE | 2016-05-01 18:39 | NUR ---
Activity Pt OOB to BR, BSC or using urinal. Pt had requested to shower, but then declined. Having significant anxiety during shift after MD wanted to discharge pt. Still has c/o pressure in chest and pain in left leg with movement, declined medications during shift. Pt partially agreeable to care when it was on his schedule. Per previous shift and pt he pulled off a toenail. 1600 8 runs of tachycardia, pt asymptomatic and MD aware. Pt also having a. fib with 2 second pauses, MD aware. Pt has call light in reach.
[2016-05-02] VITALS (10 sets, daily range): BP systolic 102–115; BP diastolic 67–76; PULSE 51–93; RESP 18–21; O2SAT 92–100
[2016-05-02 07:09] LABS: INR 2.57 ratio
[2016-05-02] MEDS: MeTOProlol XL 25 mg ER24 Tablet PO SCH (08:43)
[2016-05-02] MEDS: DULoxetine 30 mg DR Capsule PO SCH (08:44)
[2016-05-02 09:56] LABS: Mean Corpuscular Hemoglobin 24.7 pg (27.0-35.0); Mean Corpuscular Volume 79.9 fL (81-100)
--- NOTE | 2016-05-02 14:14 | PCM.PNMED ---
Subjective Date of Service May 02, 2016 Subjective Patient was examined at bedside today. Patient denies any chest pain, shortness of breath, nausea, vomiting, diarrhea. Patient stated that he has lower extremity pain bilaterally with deep palpation to the feet only. Exam Vital Signs Vital Sign - Last Date Time Temp Pulse Resp B/P Pulse Ox O2 Delivery O2 Flow Rate FiO2 05/02/16 12:56 79 05/02/16 11:17 36.7 21 114/75 96 CPAP 3.00 Intake and Output 05/01/16 05/01/16 05/02/16 Cumulative From/Thru 15:00 23:00 07:00 04/26/16 14:49 - 05/02/16 01:00 Intake Total 1844 ml 71742 ml Output Total 1050 ml 43612 ml Balance 794 ml 1612 ml Intake Oral 1844 ml 95351 ml Output Urine Total 1050 ml 27827 ml # Voids 6 # Bowel Movements 2 4 Exam Physical Exam: GEN: Patient was awake, alert, responding appropriately to questions HEENT: PERRLA, EOMI, Neck soft supple, trachea midline, nomocephalic/atraumatic CV: +S1/S2, RRR, positive murmur auscultated Respiratory: CTAB, no wheezes, rales, rhonchi GI: +bowel sounds x4, soft, compressible, non TTP, morbidly obese EXT: +1 pitting bilateral lower extremity edema, cyanosis of the feet bilaterally secondary to venous stasis chronic Neuro: CN II-XII grossly intact Psych: mood and affect were depressed IVs and Medications Medications Reviewed: Medications were reviewed in detail Lab and Diagnostics Result Diagram: 05/02/16 0932 05/02/1623 Cardiac Echo Impressions Name: MASTER FREEMAN MStudy D ate: 04/27/2016 Height: 72 in Hospital Exam Location: [facility] Weight: 498 lb Gender: Male BSA: 3.1 m2 : 1960 Age: 56 yrs BP: 96/68 m mHg Reason For Study: Congestive Heart Failure History: AVR-porcine Ordering Physician: HOSPITALIST [facility] Performed By: Arabella Campbell Referring Physician: Dr. Alexander Bruno Interpretation Summary Limited Echo to assess LV function: Echo poor quality due to body habitus. 1) Grossly, LV function estimated at 25-30%. Wall motion difficult to assess due to limited visualization. 2) No pericardial effusion present. 3) Compared to the Echo done 03/17/2016, LVEF appears lower on today's study. I think EF on prior study is closer to 35% on my assessment. Procedure: A two-dimensional transthoracic echocardiogram with color flow and Doppler was performed. The study quality was technically difficult. Comparison is made with the echocardiogram of 03/17/2016. A contrast injection of Definity was performed to improve assessment of LV function. No complications with contrast. The patient was in atrial fibrillation with heart rates between 65-85 bpm during the exam. Left Ventricle: The left ventricle is markedly dilated. Left ventricular wall thickness is borderline increased. The ejection fraction is estimated to be 25-30%. Regional wall motion abnormalities cannot be excluded due to limited visualization. Diastolic function could not be accurately assessed due to unobtainable data. Right Ventricle: The right ventricle is not well visualized. Atria: The left atrium is not well visualized. Right atrium not well visualized. Mitral Valve: The mitral valve is grossly normal. There is at least trace mitral regurgitation. Aortic Valve: There is a porcine aortic valve. The prosthetic aortic valve is not well visualized. Tricuspid Valve: The tricuspid valve is not well visualized. Pulmonary artery pressures cannot be estimated because of the lack of a measurable TR jet velocity. Pulmonic Valve: The pulmonic valve is not well visualized. There is mild pulmonic regurgitation. Pericardium/ Pleura There is no pericardial effusion. MMode/2D Measurements & Calculations LVIDd LV martinez. diameter/BSA (cm/m^2) LV sys. diameter/BSA (cm/m^2) : 7.9 cm LVIDs : 7.1 cm FS: 10.0 % IVSd : 0.9cm LVPWd : 1.1 cm Doppler Measurements & Calculations Ao V2 max PA V2 max MV V2 mean Ao V2 mean : 259.3 cm/sec : 79.5 cm/sec : 104.6 cm/sec : 189.7 cm/sec Ao max PG PA mean PG MV mean PG Ao V2 VTI: 48.4 cm : 26.9 mmHg Ao mean PG PA Accel Time MV V2 VTI: 30.8 cm : 15.8 mmHg PA V2 mean : 48.8 cm/sec Reading Physician:06:07 PM Assessment & Plan 56-year-old male with dull ache chest pressure and intermittent sharp chest pain admitted for ACS evaluation, obesity, likely contributory sCHF. Chest pain -- Serial troponins negative -- Unremarkable lipids -- Continue atorvastatin 40 mg daily at bedtime Acute CHF -- Continue torsemide 40 mg daily torsemide per recommendations from cardiology -- Spironolactone 25 daily per recommendations from cardiology -- Digoxin 0.25 mg daily at noon per recommendations by cardiology -- Continue aspirin 81 mg daily Infection workup -- Influenza screen negative -- Chest x-ray no signs of acute pulmonary processes Deconditioning -- Physical therapy eval and treat -- Possible SNF placement Chronic issues known prior to admission, present on admission . Obesity hypoventilation syndrome. VDRF On 2-3L home 2. History of pneumonia. Obstructive sleep apnea, on BiPAP . systolic Congestive heart failure 2010, showing an LVEF of 35% to 40% >> 25% prior to AvR porcine for AoStenosis >> EF 45% 03/2016 / . Hypertension / runs of V-tach / Chronic atrial fibrillation on Coumadin. . Coagulopathy with elevated INR and PTT, status post previous workup. . Morbid obesity. . Gout . Degenerative joint disease. . History of nephrolithiasis. history of renal failure Diet cardiac DVT prophylaxis lovenox Code full Disposition: Patient is currently medically stable. However he has had a few short bouts of V. tach as noted by telemetry. This generally happens while the patient is at rest and he is currently asymptomatic. At this time the best option for the patient is to obtain a cardiac stress test which would be done at another facility; however, the patient prefers to go to a SNF for long-term care facility and then obtain an outpatient cardiac stress. It has been explained to the patient that we cannot completely rule out any cardiac allergy this time until the cardiac stress has been completed. The patient states that he understands the first the SNF or long-term care facility to be in place first. The plan is for the patient to be transferred to a SNF or long-term care facility and the patient is to have an outpatient stress test at either [place] [facility] with Dr.Devorah Paz or [facility] [place] with either Dr. Zayda Camara or Dr. Mauricio Mesa [phone]. At this time the patient's chest pain is most likely secondary to anxiety but a cardiac stress test would need to be done in order to rule this out completely. Resuscitation Status: CPR: Attempt Resuscitation Zehra Lea DO May 02, 2016 14:14
--- NOTE | 2016-05-02 16:38 | PCM.PHAPRO ---
Progress Date of Service: May 02, 2016 Warfarin Dosing Indication: Afib Home Dose: 4mg daily Anticoagulation Trends: INR 2.35 2.84 2.76 2.44 2.81 3.09 2.57 Warf Dose 6MG 2.5 4mg 4MG 2MG HOLD 3MG GOAL INR: 2-3 Summary: INR is back in range, continue with a slightly reduced home dose of 3mg. Pharmacy will continue to follow daily. Thank you for consulting pharmacy in the care of this patient. Amilcar Salinas May 02, 2016 16:38
--- NOTE | 2016-05-02 18:27 | NUR ---
Telemetry Update: VTACH Patient has been Afib 50-90s throughout the day with PVC pairs and triplets. Patient has had multiple runs of VTACH today: 10:53 - 5bt 16:18 - 8bt 17:20 - 7bt 17:50 - 9bt AISHA Riley aware
--- NOTE | 2016-05-02 19:43 | NUR ---
Vtach P: Per tele, pt A-fib 60s-90s at baseline. Continues to have intermittent runs of V-tach. MD aware. I: Continue Telemetry monitoring. No new orders received. E: Frequency of runs of v-tach increasing with pt agitation this evening. No chest pain noted. Pt has been asymptomatic.
--- NOTE | 2016-05-02 23:10 | NUR ---
bradycardic Overnight HR in the 50's with occasional elevation into the 60'-70's when awake. Remains asymptomatic - denies increase in chest pain.
--- NOTE | 2016-05-02 23:13 | NUR ---
refused bed exchange. Patient went to sleep at 1930 last evening and adamantly refused to to have his bed exchanged as previously planned. Account Planner made aware and will place call to [facility] for delivery of another [facility] bed needed for new patient.
[2016-05-03] VITALS (12 sets, daily range): BP systolic 88–139; BP diastolic 58–88; PULSE 53–99; RESP 18–22; O2SAT 91–96
--- NOTE | 2016-05-03 07:00 | NUR ---
mobility assisted to wheelchair this A.M and patient made several loops in cristina. Then ambulated approx 20 feet in room with SBA.
[2016-05-03 07:07] LABS: INR 2.07 ratio
[2016-05-03] MEDS: MeTOProlol XL 25 mg ER24 Tablet PO SCH (08:30)
[2016-05-03] MEDS: DULoxetine 30 mg DR Capsule PO SCH (09:09)
--- NOTE | 2016-05-03 09:15 | NUR ---
Blood Pressure Pt morning blood pressure was 94/58. paged and held morning dose of spironolactone, metoprolol, and Torsemide. Will continue to monitor. Denies chest pain. SOB. Pt is laying down and on CPAP.
--- NOTE | 2016-05-03 11:33 | NUR ---
Elle clinical admissions manager at [facility] called and they are unable to accept patient due to bariatric needs. Updated NURSING STUDENT
[2016-05-03] MEDS ORDERED: 0.9% Sodium Chloride 1,000 ML IV ONE (13:20)
--- NOTE | 2016-05-03 14:00 | NUR ---
Blood Pressure At 1240 bp was 88/58 with pulse of 61. paged and ordered 1L bolus. Okay to give digoxin. At time of administration made pt sit up and bp was 114/75 with a pulse of 99. aware and edy to still give bolus. Denies chest pain, SOB, and anxiety. Pt appears SOB with activity, baseline per pt. Will continue to monitor. Addendum: 05/03/16 at 1649 by JESUSITA ANTONIO RN Pt tolerated bolus well.
--- NOTE | 2016-05-03 16:32 | NUR ---
Pain Pt told RN [facility] that he was having some chest pain/pressure. When evaluating the pt I talked with him for about a half hour. He stated that it was some pressure in his chest unrelated to anxiety. He stated that it was not different than the pain he has had before and that is wasn't as severe. I offered to give him so Tylenol or Maalox and he declined. VSS. Pt is a&ox3 able to have a conversation and he did not appear to have SOB. Pt is not diaphoretic and VSS. Tele reported pt had one run of 8 beats vtach unrelated to the chest pain and pt has been Afib 68 with PVC pairs. Notified MD. Will continue to monitor.
--- NOTE | 2016-05-03 17:37 | PCM.PNMED ---
Subjective Date of Service May 03, 2016 Subjective Patient was examined at bedside today. Patient denies any chest pain, shortness of breath, nausea, vomiting, diarrhea. Exam Vital Signs Vital Sign - Last Date Time Temp Pulse Resp B/P Pulse Ox O2 Delivery O2 Flow Rate FiO2 05/03/16 15:00 36.4 74 18 116/77 95 Nasal Cannula 3.50 Intake and Output 05/02/16 05/02/16 05/03/16 Cumulative From/Thru 15:00 23:00 07:00 04/26/16 14:49 - 05/03/16 05:48 Intake Total 1322 ml 1762 ml 518 ml 58518 ml Output Total 850 ml 1100 ml 800 ml 86209 ml Balance 472 ml 662 ml -282 ml 2464 ml Intake Oral 1322 ml 1762 ml 518 ml 55843 ml Output Urine Total 850 ml 1100 ml 800 ml 22757 ml # Voids 3 9 # Bowel Movements 0 0 4 Exam Physical Exam: GEN: Patient was awake, alert, responding appropriately to questions HEENT: PERRLA, EOMI, Neck soft supple, trachea midline, nomocephalic/atraumatic CV: +S1/S2, RRR, positive murmur auscultated Respiratory: CTAB, no wheezes, rales, rhonchi GI: +bowel sounds x4, soft, compressible, non TTP, morbidly obese EXT: +1 pitting bilateral lower extremity edema, cyanosis of the feet bilaterally secondary to venous stasis chronic Neuro: CN II-XII grossly intact Psych: mood and affect were depressed IVs and Medications Medications Reviewed: Medications were reviewed in detail Medications Current Medications Melatonin 1 mg HS PRN PO; Start 05/02/16 at 16:10 Pantoprazole 40 mg 0630 PO; Start 05/04/16 at 06:30 Lab and Diagnostics Result Diagram: 05/02/16 0932 05/02/16 0623 Cardiac Echo Impressions 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 Alexander Bruno Interpretation Summary Limited Echo to assess LV function: Echo poor quality due to body habitus. 1) Grossly, LV function estimated at 25-30%. Wall motion difficult to assess due to limited visualization. 2) No pericardial effusion present. 3) Compared to the Echo done 03/17/2016, LVEF appears lower on today's study. I think EF on prior study is closer to 35% on my assessment. Procedure: A two-dimensional transthoracic echocardiogram with color flow and Doppler was performed. The study quality was technically difficult. Comparison is made with the echocardiogram of 03/17/2016. A contrast injection of Definity was performed to improve assessment of LV function. No complications with contrast. The patient was in atrial fibrillation with heart rates between 65-85 bpm during the exam. Left Ventricle: The left ventricle is markedly dilated. Left ventricular wall thickness is borderline increased. The ejection fraction is estimated to be 25-30%. Regional wall motion abnormalities cannot be excluded due to limited visualization. Diastolic function could not be accurately assessed due to unobtainable data. Right Ventricle: The right ventricle is not well visualized. Atria: The left atrium is not well visualized. Right atrium not well visualized. Mitral Valve: The mitral valve is grossly normal. There is at least trace mitral regurgitation. Aortic Valve: There is a porcine aortic valve. The prosthetic aortic valve is not well visualized. Tricuspid Valve: The tricuspid valve is not well visualized. Pulmonary artery pressures cannot be estimated because of the lack of a measurable TR jet velocity. Pulmonic Valve: The pulmonic valve is not well visualized. There is mild pulmonic regurgitation. Pericardium/ Pleura There is no pericardial effusion. MMode/2D Measurements & Calculations LVIDd LV martinez. diameter/BSA (cm/m^2) LV sys. diameter/BSA (cm/m^2) : 7.9 cm LVIDs : 7.1 cm FS: 10.0 % IVSd : 0.9cm LVPWd : 1.1 cm Doppler Measurements & Calculations Ao V2 max PA V2 max MV V2 mean Ao V2 mean : 259.3 cm/sec : 79.5 cm/sec : 104.6 cm/sec : 189.7 cm/sec Ao max PG PA mean PG MV mean PG Ao V2 VTI: 48.4 cm : 26.9 mmHg Ao mean PG PA Accel Time MV V2 VTI: 30.8 cm : 15.8 mmHg PA V2 mean : 48.8 cm/sec Reading Physician:06:07 PM Assessment & Plan 56-year-old male with dull ache chest pressure and intermittent sharp chest pain admitted for ACS evaluation, obesity, likely contributory sCHF. Chest pain -- Serial troponins negative -- Unremarkable lipids -- Continue atorvastatin 40 mg daily at bedtime Hypotension -- Patient had hypotensive episodes today patient's blood pressure medication was held and a bolus of IV fluids was given Acute CHF -- Continue torsemide 40 mg daily torsemide per recommendations from cardiology -- Spironolactone 25 daily per recommendations from cardiology: Held today for hypotension -- Digoxin 0.25 mg daily at noon per recommendations by cardiology -- Continue aspirin 81 mg daily Infection workup -- Influenza screen negative -- Chest x-ray no signs of acute pulmonary processes Deconditioning -- Physical therapy eval and treat -- Possible SNF placement Chronic issues known prior to admission, present on admission . Obesity hypoventilation syndrome. VDRF On 2-3L home 2. History of pneumonia. Obstructive sleep apnea, on BiPAP . systolic Congestive heart failure 2010, showing an LVEF of 35% to 40% >> 25% prior to AvR porcine for AoStenosis >> EF 45% 03/2016 / . Hypertension / runs of V-tach / Chronic atrial fibrillation on Coumadin. . Coagulopathy with elevated INR and PTT, status post previous workup. . Morbid obesity. . Gout . Degenerative joint disease. . History of nephrolithiasis. history of renal failure Diet cardiac DVT prophylaxis lovenox Code full Disposition: Patient is currently medically stable. However he has had a few short bouts of V. tach as noted by telemetry. This generally happens while the patient is at rest and he is currently asymptomatic and self limiting. At this time the best option for the patient is to obtain a cardiac stress test which would be done at another facility; however, the patient prefers to go to a SNF for long-term care facility and then obtain an outpatient cardiac stress. It has been explained to the patient that we cannot completely rule out any cardiac allergy this time until the cardiac stress has been completed. The patient states that he understands the first the SNF or long-term care facility to be in place first. The plan is for the patient to be transferred to a SNF or long-term care facility and the patient is to have an outpatient stress test at either [facility] with Dr.Devorah Paz or [facility] [place] with either Dr. Zayda Camara or Dr. Mauricio Mesa [phone]. At this time the patient's chest pain is most likely secondary to anxiety but a cardiac stress test would need to be done in order to rule this out completely. Patient did have a few episodes of hypotension today and his blood pressure medications were held except for the digoxin. The patient was bolused with IV fluids for gentle hydration. We will continue to monitor patient. Once again it is strongly recommended the patient go for a cardiac stress test however the patient still insists on holding off for now. Resuscitation Status: CPR: Attempt Resuscitation Zehra Lea DO May 03, 2016 17:37
[2016-05-04 00:17] VITALS: BP 128/84; PULSE 63; RESP 18; O2SAT 94
[2016-05-04 04:49] VITALS: BP 112/60; PULSE 56; RESP 18; O2SAT 96
--- NOTE | 2016-05-04 05:35 | NUR ---
Pain/V-Tach had 12 beats V-Tach @ 2355 , had 6 beats V-Tach @ 0106,asymptomatic, Paged hospitalist FYI:, Bi-Pap to sleep, [facility] Tele A-Fib from Benny to mid 90's A&O x3 , Saline locked ,
[2016-05-04] MEDS: Pantoprazole 40 mg ER24 Tablet PO SCH (06:39)
[2016-05-04 07:01] LABS: INR 1.93 ratio
--- NOTE | 2016-05-04 08:21 | NUR ---
Blood sugar/Troponin/Elevated SBP. Blood sugar 100 this AM. Doctor at bed side. held severo patient strict NPO at 0900AM r/t Colonoscopy. Doctor aware. Lab called r/t Troponin lab results. Doctor aware. Elevated Blood pressure and patient received Scheduled Bp medications as ordered, Doctor aware and at bed side. Addendum: 05/04/16 at 0831 by NILDA KANG RN Wrong charted.
[2016-05-04] MEDS: DULoxetine 30 mg DR Capsule PO SCH (09:10)
[2016-05-04] MEDS: MeTOProlol XL 25 mg ER24 Tablet PO SCH (09:10)
[2016-05-04 11:13] VITALS: BP 120/81; PULSE 62; RESP 22; O2SAT 93
--- NOTE | 2016-05-04 13:17 | NUR ---
Mentation Patient is alert and oriented X3. Able to make needs known. stable vital signs. patient received all PO medications as ordered without swallowing difficulty. IV saline locked. Uses CPAP with 2L nasal cannula when sleeping. stable mood. call light with in reach for safety and uses call light appropriately. c/o mild chest pain and cook pagesumit doctor, orders continue to monitor. per Tele Afib, no PVC, 60-70's .Will continue to monitor for safety, chest pain, and vital signs.
--- NOTE | 2016-05-04 14:22 | PCM.DIMED ---
Discharge Instructions Date of Service May 04, 2016 Dates of Hospitalization Apr 26, 2016 at 17:51 Discharge Diagnosis Discharge Diagnosis Acute CHF Hypertension Chronic atrial fibrillation currently on Coumadin Diet Heart Healthy, Diabetic Activity Other (gradually return to normal activities as tolerated) Call your provider Fever or Chills, Shortness of breath, Chest pain Patient Instructions Please call your PCP and kettle hand to make a follow-up appointment. Home health services will be in to check on the patient. [facility] services have also been awarded however a caregiver has not been found at this time. Once a caregiver has been found then he will continue to follow-up with [facility]. It is recommended that you have a cardiac stress which should be performed at a bariatric center. Either at [facility] with Dr.Devorah Paz [phone] or [facility] [place] with either Dr. Zayda Camara or Dr. Mauricio Mesa [phone]. Please call to make an appointment. Please continue to follow up with her PCP for Coumadin clinic in regards to your daily Coumadin usage. Follow-up plan The patient should call [facility] with Dr.Devorah Paz [phone] or [facility] [place] with either Dr. Zayda Camara or Dr. Mauricio Mesa [phone]. To schedule appointment for a cardiac stress test only 2 places locally who did cardiac stress test for bariatric patients. Follow-up Provider: Maya Bruno MD Follow-up with PCP in: 1 week (if an appointment has not already been made please call and schedule appointment) Provider: Edil Reese MD Follow-up in: 1 week (If an appointment has not been made please call and schedule an appointment) Zehra Lea DO May 04, 2016 13:15
[2016-05-04] MEDS ORDERED: TORS20TA PO (14:27)
[2016-05-04] MEDS ORDERED: ATOR40TA69 PO (14:27)
[2016-05-04] MEDS ORDERED: DIGO250T72 PO (14:27)
[2016-05-04] MEDS ORDERED: NITR0.4T SL (14:27)
[2016-05-04] MEDS ORDERED: SPIR25TA PO (14:27)
[2016-05-04] MEDS ORDERED: METO25TA99 PO (14:27)
[2016-05-04] MEDS ORDERED: ASPI81TA3 PO (14:27)
--- NOTE | 2016-05-04 14:43 | PCM.DC.MED ---
Discharge Summary Date of Service May 04, 2016 Dates of Hospitalization Date of Hospital Admission Apr 26, 2016 at 17:51 Date of Discharge: May 04, 2016 Providers: Admitting Physician: Remigio Graves MD Primary Care Physician: Maya Bruno MD Attending Physician: Remigio Graves MD Diagnosis at Time of Discharge Diagnosis at Time of Discharge Acute CHF Hypertension Chronic atrial fibrillation currently on Coumadin Consultations Patient was seen by cardiology who made the following recommendations. 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 # Chest pain - chest pain he describes is atypical and has a pleuritic features ; taking in mind the quality of chest pain and that he has been having this chest pain on and off constantly since 04/23/2016 and that his troponins has been negative, doubt that he has ACS. During the encounter today the patient had again chest pressure and EKG was done which showed atrial fibrillation rate controlled without ischemic changes. # Dilated cardiomyopathy - per medical records is considered nonischemic because patient had cardiac catheterization in the past at some point which reportedly did not show significant coronary artery disease. It is very hard to assess his volume status because of his morbid obesity, but the patient is able to lay down flat in the bed currently which is reassuring and speaks for likely adequate volume status currently. The patient would benefit from ICD for primary prevention which was suggested in the past and never happened likely from patients not following up with cardiology. The case was discussed with Assessment Director Dr. Reese who also spoke and examined the patient. Would recommend : - to stop Furosemide iv - Start Torsemide 40 mg PO (as outpatient he was taking Torsemide 100 mg daily) - Will also start him on Spironolactone 25 mg daily and will stop Potassium supplements. - To help his cardiac function, will start him on Digoxin 0.25 mg daily - Will start him on Metoprolol succinate 12.5 mg daily which would be beneficial for his Cardiomyopathy and episodes of nonsustained ventricular tachycardia. It can be uptitrated later depending on BP. - At this point there is no room for BP to start him on Lisinopril which could be considered down the road. Procedures Cardiac Echo Impression Name: MASTER FREEMAN MStudy D ate: 04/27/2016 Height: 72 in Hospital Exam Location: [facility] Weight: 498 lb Gender: Male BSA: 3.1 m2 : 1960 Age: 56 yrs BP: 96/68 m mHg Reason For Study: Congestive Heart Failure History: AVR-porcine Ordering Physician: HOSPITALIST [facility] Performed By: Arabella Campbell Referring Physician: Dr. Alexander Bruno Interpretation Summary Limited Echo to assess LV function: Echo poor quality due to body habitus. 1) Grossly, LV function estimated at 25-30%. Wall motion difficult to assess due to limited visualization. 2) No pericardial effusion present. 3) Compared to the Echo done 03/17/2016, LVEF appears lower on today's study. I think EF on prior study is closer to 35% on my assessment. Procedure: A two-dimensional transthoracic echocardiogram with color flow and Doppler was performed. The study quality was technically difficult. Comparison is made with the echocardiogram of 03/17/2016. A contrast injection of Definity was performed to improve assessment of LV function. No complications with contrast. The patient was in atrial fibrillation with heart rates between 65-85 bpm during the exam. Left Ventricle: The left ventricle is markedly dilated. Left ventricular wall thickness is borderline increased. The ejection fraction is estimated to be 25-30%. Regional wall motion abnormalities cannot be excluded due to limited visualization. Diastolic function could not be accurately assessed due to unobtainable data. Right Ventricle: The right ventricle is not well visualized. Atria: The left atrium is not well visualized. Right atrium not well visualized. Mitral Valve: The mitral valve is grossly normal. There is at least trace mitral regurgitation. Aortic Valve: There is a porcine aortic valve. The prosthetic aortic valve is not well visualized. Tricuspid Valve: The tricuspid valve is not well visualized. Pulmonary artery pressures cannot be estimated because of the lack of a measurable TR jet velocity. Pulmonic Valve: The pulmonic valve is not well visualized. There is mild pulmonic regurgitation. Pericardium/ Pleura There is no pericardial effusion. MMode/2D Measurements & Calculations LVIDd LV martinez. diameter/BSA (cm/m^2) LV sys. diameter/BSA (cm/m^2) : 7.9 cm LVIDs : 7.1 cm FS: 10.0 % IVSd : 0.9cm LVPWd : 1.1 cm Doppler Measurements & Calculations Ao V2 max PA V2 max MV V2 mean Ao V2 mean : 259.3 cm/sec : 79.5 cm/sec : 104.6 cm/sec : 189.7 cm/sec Ao max PG PA mean PG MV mean PG Ao V2 VTI: 48.4 cm : 26.9 mmHg Ao mean PG PA Accel Time MV V2 VTI: 30.8 cm : 15.8 mmHg PA V2 mean : 48.8 cm/sec Reading Physician:06:07 PM Brief History This is a very pleasant 56 year old gentleman with morbid obesity, long- standing dilated nonischemic cardiomyopathy since 2009 with LV EF of 25-30%, CHF , history of aortic valve stenosis likely from the bicuspid aortic valve, status post bioprosthetic aortic valve replacement done on 07/2011 later complicated with DVT and PE found to have evidence of lupus anticoagulant and was started on warfarin, has history of chronic atrial fibrillation since 2012, 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 The patient states that starting from last Tuesday he has been experiencing on and off chest pressure in the middle of his chest and under his left breast sometimes radiating to left arm; chest pressure was aggravated with deep breathing and movement and left arm movement. He was getting this chest pressure only when he was sitting. His physical activity is very limited and he uses walker or wheelchair. He also periodically felt nauseous and clammy and felt palpitations and felt a little lightheaded. Also noticed worsening dyspnea on exertion and decided to come to ER. In March 2016 he had pneumonia and since discharge he has been using oxygen 01/11. He has past history of using tobacco, states that he does not smoke anymore, denies using alcohol, or recreational drug use. Denies family history of coronary artery disease. Hospital Course 56-year-old male with dull ache chest pressure and intermittent sharp chest pain admitted for ACS evaluation, obesity, likely contributory CHF. The patient presented with chest pain and had a full cardiac workup. The patient's troponins were negative and there were no new EKG changes. Cardiology wanted to do a cardiac stress test on the patient however we do not have a bariatric bed in order to perform cardiac stress test. So it was decided that the patient should have a stress test as an outpatient since he had been medically stable. Cardiology made recommendations to change the patient's medications and decrease his torsemide to 40 mg daily, added spironolactone 25 mg daily, digoxin 0.25 daily, atorvastatin 40 mg daily and metoprolol 12.5 mg daily. The patient seemed to progress and there were no new changes. The patient did a few short runs of V. tach and atrial fibrillation and the patient self converted converted with no interventions. At this time it is felt that the patient's chest pain is most likely connected to when the patient goes into A. fib or has a sore on V. tach, but there is also possible suggestion that the chest pain is most likely secondary to anxiety but a cardiac stress test should be done in order to rule this out. This has been chronic and the patient has been medically stable. The patient was considered medically stable and ready for discharge several days ago however the patient felt that he needed to go to a long-term care facility or fdc facility due to deconditioning. The patient was assessed by physical therapy for follow-up of the patient was at his baseline and could return home however the patient disagreed. Case management did make several efforts in order to get the patient accepted into a long-term care facility or a fdc facility however this was unable to be accomplished partially due to the patient's bariatric size. The patient will be discharged home with home health services immediately as well as z[facility] services as soon as an agent is available. The patient's is currently at his baseline mobility and is being discharged home in stable condition. The patient should follow up for an outpatient stress test at either [facility] with Dr.Devorah Paz or [facility] with either Dr. Zayda Camara or Dr. Mauricio Mesa [phone]. At this time the patient's chest pain is most likely secondary to anxiety but a cardiac stress test would need to be done in order to rule this out completely. Exam Vital Signs (Last) Date Time Temp Pulse Resp B/P Pulse Ox O2 Delivery O2 Flow Rate FiO2 05/04/16 12:10 88 05/04/16 11:13 36.4 22 120/81 93 Nasal Cannula 4.00 Test 04/26/16 15:01 04/26/16 23:13 04/27/16 05:42 05/01/16 06:26 D-Dimer < 0.5mg/L FEU (<0.50) Magnesium Level 1.8mg/dL (1.6-2.6) Total Bilirubin 0.9mg/dL (0.0-1.2) Aspartate Amino Transf (AST/SGOT) 9U/L (0-50) Alanine Aminotransferase (ALT/SGPT) 5U/L (0-44) Alkaline Phosphatase 85U/L (25-150) Pro-B-Type Natriuretic Peptide 3115pg/mL (0-121) Total Protein 7.4g/dL (6.4-8.4) Albumin 3.6g/dL (3.4-5.0) Hold Urine Received (Received) Troponin T < 0.010ug/L (0.0-0.011) Triglycerides Level 95mg/dL (0-149) Cholesterol Level 94mg/dL (100-199) LDL Cholesterol, Calculated 48.000mg/dL (0-99) VLDL Cholesterol 19.000mg/dL HDL Cholesterol 27mg/dL (>39) Cholesterol/HDL Ratio 3.48 (0.0-4.4) Neutrophils (%) (Auto) 70.2% (40-74) Lymphocytes (%) (Auto) 7.6% (14-46) Monocytes (%) (Auto) 6.4% (4-12) Eosinophils (%) (Auto) 15.1% (0-5) Basophils (%) (Auto) 0.2% (0-3) Test 05/02/16 06:23 05/02/16 09:32 05/04/16 05:58 Sodium Level 141mEq/L (134-144) Potassium Level 3.9mEq/L (3.5-5.2) Chloride Level 97mEq/L (97-108) Carbon Dioxide Level 33mmol/L (18-29) Blood Urea Nitrogen 16mg/dL (6-24) Creatinine 1.15mg/dL (0.76-1.27) Estimat Glomerular Filtration Rate 70mL/min (>59) Glucose Level 130mg/dL (60-99) Calcium Level 8.7mg/dL (8.5-10.1) White Blood Count 6.6th/mm3 (3.8-10.1) Red Blood Count 4.53mil/mm3 (4.40-5.80) Hemoglobin 11.2g/dL (13.8-17.2) Hematocrit 36.2% (41.0-50.0) Mean Corpuscular Volume 79.9fL (81-100) Mean Corpuscular Hemoglobin 24.7pg (27.0-35.0) Mean Corpuscular Hemoglobin Concent 30.9% (32.0-37.0) Red Cell Distribution Width 16.6% (12.3-15.4) Platelet Count 204bil/L (150-400) Prothrombin Time 20.9sec (8.1-12.5) Prothromb Time International Ratio 1.93ratio Discharge Medications Discharge Medications Allopurinol (Allopurinol) 300 Mg Tablet 300 MG PO DAILY (Reported) Aspirin Chew (Aspirin Chew) 81 Mg Chew 81 MG PO DAILY Prescribed by: ROMMEL ORDOÑEZ DO Atorvastatin Calcium (Atorvastatin Calcium) 40 Mg Tablet 40 MG PO HS Prescribed by: ROMMEL ORDOÑEZ DO Digoxin (Digoxin) 250 Mcg Tablet 0.25 MG PO DAILY@12 Prescribed by: ROMMEL ORDOÑEZ DO Duloxetine (Duloxetine) 30 Mg Capsule.dr 60 MG PO DAILY (Reported) Metoprolol Succinate ER (Metoprolol Succinate ER) 25 Mg Tab.er.24h 12.5 MG PO DAILY Prescribed by: ROMMEL ORDOÑEZ DO Potassium Chloride (Potassium Chloride) 20 Meq Tab.er.prt 40 MEQ PO DAILY ( Reported) Spironolactone (Aldactone) 25 Mg Tablet 25 MG PO DAILY Prescribed by: ROMMEL ORDOÑEZ DO Torsemide (Torsemide) 100 Mg Tablet 100 MG PO DAILY (Reported) Torsemide (Demadex) 20 Mg Tablet 40 MG PO DAILY Prescribed by: ROMMEL ORDOÑEZ DO Warfarin Sodium (Warfarin Sodium) 4 Mg Tablet 4 MG PO DAILY (Reported) As needed Nitroglycerin SL (Nitrostat) 0.4 Mg Tab.subl 0.4 MG SL Q5MIN PRN PRN For Chest Pain Prescribed by: ROMMEL ORDOÑEZ DO Trazodone (Trazodone) 50 Mg Tablet 50-300 MG PO HS PRN PRN For Sleep (Reported) Followup Plan Follow-up plan The patient should call [facility] with Dr.Devorah Paz or [facility] [place] with either Dr. Zayda Camara or Dr. Mauricio Mesa [phone]. To schedule appointment for a cardiac stress test only 2 places locally who did cardiac stress test for bariatric patients. Discharge Diet: Heart Healthy, Diabetic Discharge Activity: Other (gradually return to normal activities as tolerated) Patient Instructions Please call your PCP and lead handler to make a follow-up appointment. Home health services will be in to check on the patient. [facility] services have also been awarded however a caregiver has not been found at this time. Once a caregiver has been found then he will continue to follow-up with [facility]. It is recommended that you have a cardiac stress which should be performed at a bariatric center. Either at [facility] with Dr.Devorah Paz [phone] or [facility] with either Dr. Zayda Camara or Dr. Mauricio Mesa [phone]. Please call to make an appointment. Please continue to follow up with her PCP for Coumadin clinic in regards to your daily Coumadin usage. Follow-up Provider: Maya Bruno MD Follow-up with PCP in: 1 week (if an appointment has not already been made please call and schedule appointment) Provider: Edil Reese MD Follow-up in: 1 week (If an appointment has not been made please call and schedule an appointment) Time spent Greater than 35 minutes copies to: Maya Bruno MD, Precious L DO May 04, 2016 14:43
--- NOTE | 2016-05-04 14:43 | NUR ---
Social Work Continued Discharge Planning: Order for discharge acknowledged. BRANDY met with patient at bedside to discuss discharge plan. Therapy notes reviewed and recommendations for home with HHC as patient at baseline. Patient has all DME at home and is SBA/independent with needs. BRANDY discussed resumption of HHC services via [facility]. Contact with [facility] rep Zain made who is aware of discharge for today and to resume services for HHR Rn, OT, and aid at discharge. BRANDY also spoke to [facility] manager appointment Omi, /[phone] who was made aware of discharge for today. [facility] has no caregiver established at this time to meet patient needs and they are still attempting to find a caregiver. [facility] to contact patient once caregiver established. Patient states not wanting to discharge home. Patient states wanting to discharge to SNF. No accepting SNF at this time and patient doesn't meet qualifications for rehab. Patient aware and persisting SNF transfer. Patient at baseline status. BRANDY and BABATUNDE Grasia met with patient at bedside to discuss appeal options. Patient refused to discuss with BRANDY and Rn BABATUNDE hoff. Patient requesting follow up with his brother who to arrive later this afternoon. SW to follow. PLAN: Home with resumption of HHC via [facility]. RENETTA to follow at home for home caregiver support. BRANDY to follow. Emir BRADLEY
--- NOTE | 2016-05-04 17:11 | NUR ---
Case Management: Went to speak with patient at 1610 about Medicare Appeal Process and with DONTA Letter. I said patients name loudly several times, he did not stir, did not respond. RN states this is normal for patient. Biju Castellano RN Addendum: 05/04/16 at 1954 by BIJU CASTELLANO CM When patient's brother and [id number] present (Cliff and Cinda), I explained that pt has been discharged. I explained IMM, patient was willing to sign, appeal process started through [facility]. HINN letter presented and explained, patient also signed this. Cliff and Cinda expressed concern as they will be unavailable until afternoon. I provided them with the cell phone number so if they felt the need to check in they could. Biju Castellano RN
--- NOTE | 2016-05-04 18:42 | NUR ---
Telematry Fredrick paged doctor r/t Tele Vtach, 10 beats, rate 79, Afib. and aware.patient is asymptomatic. brother. case management also at the bed side.
[2016-05-04 20:00] VITALS: PULSE 67
[2016-05-04 20:55] VITALS: BP 91/60; PULSE 62; RESP 24; O2SAT 90
[2016-05-05 00:06] VITALS: BP 102/64; PULSE 59; RESP 24; O2SAT 90
--- NOTE | 2016-05-05 02:24 | NUR ---
Pain/ tele Pt reporting right ankle pain due to gout. Pt took Tylenol 975 mg PO and also Trazodone for sleep. On reassessment, pt is sleeping and appears comfortable. Pt has had bradycardia episodes throughout the night down to 30s but not sustaining and HR returns to 50-60s. Pt denies chest pain. Pt wearing CPAP overnight.
[2016-05-05 04:30] VITALS: BP 95/61; PULSE 66; RESP 24; O2SAT 92
[2016-05-05] MEDS: Pantoprazole 40 mg ER24 Tablet PO SCH (05:42)
[2016-05-05 06:40] LABS: INR 1.91 ratio
[2016-05-05 09:15] VITALS: PULSE 86
[2016-05-05] MEDS: DULoxetine 30 mg DR Capsule PO SCH (09:52)
[2016-05-05] MEDS: MeTOProlol XL 25 mg ER24 Tablet PO SCH (09:52)
--- NOTE | 2016-05-05 11:35 | NUR ---
FAXED CLINICALS TO [facility], . CASE#[id number]
[2016-05-05 11:36] VITALS: BP 98/66; PULSE 69; RESP 20; O2SAT 96
--- NOTE | 2016-05-05 13:52 | NUR ---
Telemetry cook paged Doctor r/t Telemetry 6 beats, Vtach.' awaiting response.
--- NOTE | 2016-05-05 14:02 | PCM.PHAPRO ---
Progress Date of Service: May 05, 2016 Warfarin Dosing Indication: Afib Home Dose: 4mg daily Anticoagulation Trends: May 01-May 02-May 03-May 04-May 05-Apr 2.81 3.09 2.57 2.07 1.93 1.91 0.37 0.28 -0.52 -0.5 -0.14 1.91 2MG HOLD 3MG 3 MG 4 MG 5 MG GOAL INR: 2-3 Summary: INR is trending down will dose tonight with 5 mg to get back in range. Pharmacy will continue to follow daily. Thank you for consulting pharmacy in the care of this patient. THANKS! Leah Smith PharmD May 05, 2016 14:02
[2016-05-05 14:19] LABS: BASOPHILS % (AUTO) 0.2 % (0-3); EOSINOPHILS % (AUTO) 16.7 % (0-5); Mean Corpuscular Hemoglobin 24.3 pg (27.0-35.0); Mean Corpuscular Volume 82.5 fL (81-100); NEUTROPHILS % (AUTO) 65.9 % (40-74); Platelet Count 180 bil/L (150-400)
--- NOTE | 2016-05-05 15:21 | NUR ---
Telemetry Tele called and states," Vtach, 6 beats." master paged doctor and awaiting response. patient is asymptomatic.
[2016-05-05] MEDS ORDERED: Calcium Carbonate (Oyster Shell) 500 mg Tablet PO ONE (15:55)
--- NOTE | 2016-05-05 16:18 | NUR ---
Lab results Notified doctor r/t lab results. new orders for Uric acid lab and calcium.
[2016-05-05 16:50] VITALS: BP 82/55; PULSE 53; O2SAT 95
--- NOTE | 2016-05-05 16:57 | NUR ---
Vital signs Notified doctor r/t low systolic and low pulse. Doctor at the bed side and speaking to the patient. per orders encourage hydration and continue to monitor vital signs.
--- NOTE | 2016-05-05 18:10 | NUR ---
Mentation patient is alert and oriented X3. able to make needs known. Systolic BP and pulse low. doctor aware. Afib 68 per Tele. used CPAP with 4 liters oxygen when sleeping and 2L nasal cannula when up for meals and awake. Received PO medications as ordered with out difficulty. Denies chest pain or chest discomfort. c.o pain once this shift r/t right leg due to gout. PRN Tylenol given as ordered with effective results. Continue to monitor vital signs, safety, and pain. call light with in reach for safety. stable mood.
[2016-05-05 20:01] VITALS: BP 123/81; PULSE 71; RESP 20; O2SAT 95
--- NOTE | 2016-05-05 22:01 | PCM.PNMED ---
Subjective Date of Service May 05, 2016 Subjective Patient apparently contested his discharge and is refusing to be discharged at this time. He complains of right ankle pain from "gout". Patient has no other new complaints. Patient had a bloody nose for a very brief period of time. In there is no further nosebleed. Patient has had short runs of ventricular tachycardia, according to the door technician. Patient has been asymptomatic during these episodes of ventricular tachycardia and he has had no chest pain. Exam Vital Signs Vital Sign - Last Date Time Temp Pulse Resp B/P Pulse Ox O2 Delivery O2 Flow Rate FiO2 05/05/16 20:01 36.6 71 20 123/81 95 Nasal Cannula 4.00 Intake and Output 05/04/16 05/04/16 05/05/16 Cumulative From/Thru 15:00 23:00 07:00 04/26/16 14:49 - 05/05/16 06:21 Intake Total 1200 ml 472 ml 24421 ml Output Total 1600 ml 1025 ml 58703 ml Balance -400 ml -553 ml 3683 ml Intake Oral 1200 ml 472 ml 08293 ml IV Total 1000 ml Output Urine Total 1600 ml 1025 ml 88726 ml # Voids 9 # Bowel Movements 4 Exam General: Patient is in no apparent distress when I entered the room he was on his BiPAP machine resting comfortably in bed. HEENT: Head is atraumatic normocephalic. Eyes: Pupils are equally round and reactive to light and accommodation. Extraocular muscles are intact. Sclera are white anicteric. Subconjunctival mucosa is pink. Ears and nose are unremarkable. Oropharynx: There is no mucosal lesions, there is no thrush, there is no pharyngitis. Neck: Is supple, there are no nodes, or masses, or tenderness appreciated. Chest: Is clear to auscultation and percussion. There are no rales, rhonchi, wheezes or rubs appreciated. Heart: Rate, rhythm is regular. There is no murmur, rub or gallop. Abdomen: Good bowel sounds are present. Abdomen is soft, nontender, no organomegaly or masses were appreciated. Extremities: Are symmetrical and well perfused. There is 1+ pitting edema symmetrical of both lower extremities, there is no cellulitis, no rash. The right ankle shows no evidence of rubor, or calor, or dolor Neurologic: There are no focal neurological deficits. Cranial nerves II through XII are intact. There are no sensory or motor deficits. Psychiatric: Patients mood is calm and shows no sign of agitation. Genital: Deferred Rectal: Deferred Lab and Diagnostics Result Diagram: 05/05/1638 05/05/16 0538 Microbiology Name: MASTER FREEMAN Age/Sex: 56/M Attend Dr: Zaki Graves MD Acct: [id number] Unit: [id number] Status: ADM [facility] [place] [facility] [place]1 Re04/26/16 Disch: Specimen: [id number] Collected: 04/28/16 Status: COMP Req#: [id number] Received: 04/28/16 Source: JEAN Cullen Desc : Subm Dr: Roxanne Pantoja MD Ordered: RAPID FLU IRS Comments: Collected by Nurse/Unit? Y/N Y Procedure Result Verified Site Microbiology [facility] INFLUENZA RAPID AG SCREEN Final 04/28/16-2246 RESULT NEGATIVE FOR INFLUENZA TYPE A AND B This rapid assay is a screen test only for Influenza A&B and does not definitively rule out the presence of FLU A & B or other respiratory viral pathogens. The assay's sensitivity varies on the specimen type submitted. Nasal washes are optimum. Recommend respiratory viral cultures and DFA to confirm negative screens and rule out other viral pathogens. Per [facility], the sensitivity of this method is approximately 50% for H1N1. A negative result does NOT rule out Novel H1N1 (Swine Flu) X-Rays, CTs and MRIs PROCEDURE: X-RAY CHEST, TWO VIEWS ([id number]) INDICATIONS: dyspnea TECHNIQUE: 2 views of the chest were acquired. COMPARISON: [facility], CR, XR CHEST 1VW (PORTABLE), 04/26/2016, 14: 49. [facility], CR, XR CHEST 1VW (PORTABLE), 04/17/2016, 20:00. [facility], CR, XR CHEST 1VW (PORTABLE), 03/20/2016, 5:25. [facility], CR, XR CHEST 1VW (PORTABLE), 03/18/2016, 11:32. [facility], CR, XR CHEST 2VW, 03/16/2016, 13:47. FINDINGS: Surgical changes and devices: Median sternotomy clips. Lungs and pleura: No pleural effusions or pneumothorax. There is prominence of the pulmonary vasculature and mild, diffuse bilateral interstitial densities are present. Mediastinum: Mediastinal contours are normal. Heart size is enlarged as before. Bones and chest wall: No suspicious bony abnormalities. Soft tissues appear unremarkable. IMPRESSION: No new suspicious for chronic CHF. Correlate clinically. Dictated by: Manny BARNETT Interpreted: Linnea Mobley MD on 04/29/2016 at 16:56 Transcribed by: NICOLÁS on 04/29/2016 at 16:56 Cardiac Echo Impressions Name: MASTER FREEMAN ate: 04/27/2016 Height: 72 in Hospital Exam Location: [facility] Weight: 498 lb Gender: Male BSA: 3.1 m2 : 1960 Age: 56 yrs BP: 96/68 m mHg Reason For Study: Congestive Heart Failure History: AVR-porcine Ordering Physician: HOSPITALIST [facility] Performed By: Arabella Campbell Referring Physician: Dr. Alexander Bruno Interpretation Summary Limited Echo to assess LV function: Echo poor quality due to body habitus. 1) Grossly, LV function estimated at 25-30%. Wall motion difficult to assess due to limited visualization. 2) No pericardial effusion present. 3) Compared to the Echo done 03/17/2016, LVEF appears lower on today's study. I think EF on prior study is closer to 35% on my assessment. Procedure: A two-dimensional transthoracic echocardiogram with color flow and Doppler was performed. The study quality was technically difficult. Comparison is made with the echocardiogram of 03/17/2016. A contrast injection of Definity was performed to improve assessment of LV function. No complications with contrast. The patient was in atrial fibrillation with heart rates between 65-85 bpm during the exam. Left Ventricle: The left ventricle is markedly dilated. Left ventricular wall thickness is borderline increased. The ejection fraction is estimated to be 25-30%. Regional wall motion abnormalities cannot be excluded due to limited visualization. Diastolic function could not be accurately assessed due to unobtainable data. Right Ventricle: The right ventricle is not well visualized. Atria: The left atrium is not well visualized. Right atrium not well visualized. Mitral Valve: The mitral valve is grossly normal. There is at least trace mitral regurgitation. Aortic Valve: There is a porcine aortic valve. The prosthetic aortic valve is not well visualized. Tricuspid Valve: The tricuspid valve is not well visualized. Pulmonary artery pressures cannot be estimated because of the lack of a measurable TR jet velocity. Pulmonic Valve: The pulmonic valve is not well visualized. There is mild pulmonic regurgitation. Pericardium/ Pleura There is no pericardial effusion. MMode/2D Measurements & Calculations LVIDd LV martinez. diameter/BSA (cm/m^2) LV sys. diameter/BSA (cm/m^2) : 7.9 cm LVIDs : 7.1 cm FS: 10.0 % IVSd : 0.9cm LVPWd : 1.1 cm Doppler Measurements & Calculations Ao V2 max PA V2 max MV V2 mean Ao V2 mean : 259.3 cm/sec : 79.5 cm/sec : 104.6 cm/sec : 189.7 cm/sec Ao max PG PA mean PG MV mean PG Ao V2 VTI: 48.4 cm : 26.9 mmHg Ao mean PG PA Accel Time MV V2 VTI: 30.8 cm : 15.8 mmHg PA V2 mean : 48.8 cm/sec Reading Physician:06:07 PM Assessment & Plan 56-year-old male with dull ache chest pressure and intermittent sharp chest pain admitted for ACS evaluation, obesity, likely contributory sCHF. Chest pain -- Serial troponins negative -- Unremarkable lipids -- Continue atorvastatin 40 mg daily at bedtime Hypotension -- Patient had hypotensive episodes today patient's blood pressure medication was held and a bolus of IV fluids was given Acute on chronic systolic CHF with a porcine aortic valve replacement, now stable to improved -- The patient's ejection fraction has decreased from 35% to 20-25% since last echocardiogram. -- Continue metoprolol as recommended by cardiology -- Continue torsemide 40 mg daily torsemide per recommendations from cardiology -- Spironolactone 25 daily per recommendations from cardiology: Held today for hypotension -- Digoxin 0.25 mg daily at noon per recommendations by cardiology -- Continue aspirin 81 mg daily V- tach -- Patient has had short runs of V. tach which have been completely asymptomatic and cardiology is aware -- We will continue to monitor and discuss with cardiology. Infection workup -- Influenza screen negative -- Chest x-ray no signs of acute pulmonary processes Deconditioning -- Physical therapy eval and treat -- Possible SNF placement Acute gouty attack per patient -- We will start colchicine. -- Continue allopurinol as before. Chronic issues known prior to admission, present on admission . Obesity hypoventilation syndrome. VDRF On 2-3L home 2. History of pneumonia. Obstructive sleep apnea, will continue on BiPAP . systolic Congestive heart failure 2010, showing an LVEF of 35% to 40% >> 25% prior to AvR porcine for AoStenosis >> EF 45% 03/2016 / . Hypertension / runs of V-tach / Chronic atrial fibrillation on Coumadin. . Coagulopathy with elevated INR and PTT, status post previous workup. . Morbid obesity. . Degenerative joint disease. . History of nephrolithiasis. history of renal failure Diet cardiac The patient presented with chest pain and had a full cardiac workup. The patient's troponins were negative and there were no new EKG changes. Cardiology wanted to do a cardiac stress test on the patient however we do not have a bariatric bed in order to perform cardiac stress test. So it was decided that the patient should have a stress test as an outpatient since he had been medically stable. Cardiology made recommendations to change the patient's medications and decrease his torsemide to 40 mg daily, added spironolactone 25 mg daily, digoxin 0.25 daily, atorvastatin 40 mg daily and metoprolol 12.5 mg daily. The patient seemed to progress and there were no new changes. The patient did a few short runs of V. tach and atrial fibrillation and the patient self converted converted with no interventions. At this time it is felt that the patient's chest pain is most likely connected to when the patient goes into A. fib or has a sore on V. tach, but there is also possible suggestion that the chest pain is most likely secondary to anxiety but a cardiac stress test should be done in order to rule this out. This has been chronic and the patient has been medically stable. The patient was considered medically stable and ready for discharge several days ago however the patient felt that he needed to go to a long-term care facility or alf facility due to deconditioning. The patient was assessed by physical therapy for follow-up of the patient was at his baseline and could return home however the patient disagreed. Case management did make several efforts in order to get the patient accepted into a long-term care facility or a alf facility however this was unable to be accomplished partially due to the patient's bariatric size. The patient will be discharged home with home health services immediately as well as sandra services as soon as an agent is available. The patient's is currently at his baseline mobility and is being discharged home in stable condition. The patient should follow up for an outpatient stress test at either [facility] with Dr.Devorah Paz or [facility] with either Dr. Zayda Camara or Dr. Mauricio [facility] [phone]. At this time the patient's chest pain is most likely secondary to anxiety but a cardiac stress test would need to be done in order to rule this out completely. Pain Evaluation: Adequate Pain Control VTE Mechanical Devices: Intermittant Pneumatic CD Resuscitation Status: CPR: Attempt Resuscitation Hamilton Burger MD May 05, 2016 22:01
[2016-05-06] VITALS (7 sets, daily range): BP systolic 91–127; BP diastolic 59–89; PULSE 58–84; RESP 18–20; O2SAT 73–95
--- NOTE | 2016-05-06 05:53 | NUR ---
Pain/Tele Pt upset there was not sufficient gravy provided with dinner, he ordered lao food delivered to his room from a local restaurant- Unwilling to maintain heart healthy diet. Pt reports no pain this shift, no requests for PRN medication. Tele notes V tachx9 at 1940, Benny to 39 while sleeping, pt does not report chest pain. Humidity provided with 2L nc to prevent further epistaxis. Pt expresses anxiety about social workers, his lack of care at home, and his ex . Disposition improved after his dinner meal. BLE edematous, sensitivity r/t gout in R leg/foot. Care continues
[2016-05-06 06:29] LABS: Mean Corpuscular Hemoglobin 24.4 pg (27.0-35.0); Mean Corpuscular Volume 81.5 fL (81-100); Platelet Count 186 bil/L (150-400)
[2016-05-06] MEDS: Pantoprazole 40 mg ER24 Tablet PO SCH (06:30)
[2016-05-06 06:46] LABS: INR 2.04 ratio
[2016-05-06 06:48] LABS: Magnesium 1.9 mg/dL (1.6-2.6)
[2016-05-06 08:02] LABS: BASOPHILS % (AUTO) 0 % (0-3); EOSINOPHILS % (AUTO) 15 % (0-5); MONOCYTES % (AUTO) 7 % (4-12); NEUTROPHILS % (AUTO) 67 % (40-74)
[2016-05-06] MEDS: DULoxetine 30 mg DR Capsule PO SCH (09:15)
--- NOTE | 2016-05-06 10:55 | NUR ---
NUTRITION ASSESSMENT: ASSESS: Pt is a 56yo M admitted for chest pain. Pt is on a Heart healthy diet with good PO at 100%. Per RN note, pt has been non-compliant w/heart healthy diet and had [place] food delivered to room. Pt's wt fluctuated during admit. Wt is up ~4kg since admit. PMHX: HTN, CHF, KOKI, hypoventilation syndrome LABS: Reviewed. CO2 30, Glu 108, Alb 3.5 MEDS: Reviewed. GI: BMx1 05/05 SKIN: Yosef 19 CURRENT WTS: 230kg, BMI 68.8kg/m2, Admit wt 226kg, IBW 80.9kg, Adj BW 117kg DIET: Heart Healthy, PO 100% EST. NEEDS: BMI Kcals: 2930-3315kcal/day (25-30kcal/kg adj bw) Pro: 100-120g/day (1.2-1.5g/kg IBW) NUTRITION DIAGNOSIS: 1.) Not ready for diet/lifestyle change related to non-compliance w/diet order as evidence by pt ordering [place]ian food and BMI of 68kg/m2 NUTRITION INTERVENTION: 1.) Continue Heart Healthy diet MONITOR / EVAL: PO, diet compliance, wt, labs, POC, nutrition status. Will continue to monitor per low nutrition risk guidelines
--- NOTE | 2016-05-06 10:58 | PCM.PHAPRO ---
Progress Date of Service: May 06, 2016 Warfarin Dosing Indication: Afib Home Dose: 4mg daily Anticoagulation Trends: May 03-May 04-May 05-May 06-Apr 2.57 2.07 1.93 1.91 2.04 -0.52 -0.5 -0.14 1.91 0.13 3MG 3 MG 4 MG 5 MG 5MG GOAL INR: 2-3 Summary: INR is trending up will dose tonight with 5 mg to keep in range. Pharmacy will continue to follow daily. Thank you for consulting pharmacy in the care of this patient. THANKS! Leah Smith PharmD May 06, 2016 10:58
[2016-05-06] MEDS: MeTOProlol XL 25 mg ER24 Tablet PO SCH (11:26)
--- NOTE | 2016-05-06 16:41 | NUR ---
Social Work Continued Discharge Planning: BRANDY and UR RN met with patient at bedside to discuss discharge plan and appeal decision. Patient aware of plans to discharge tomorrow at 12 noon. Patient refused to sign paperwork reflecting financial responsibility after noon until copy obtained regarding denial decision. BRANDY contacted UR specialist Nathaly to provide patient with copy for review. Plan remains as home with [facility] via [facility] and [facility] to follow for caregiver home services. No other needs Plan remains as home with [facility] via [facility] and [facility] to follow for caregiver home services. No other needs Emir BRADLEY
--- NOTE | 2016-05-06 16:54 | CONS ---
[address] [address] CONSULTATION REPORT PATIENT: MASTER FREEMAN : 1960 MR#: [id number] ADMIT: 04/26/2016 JOB ID: [id number] DATE OF SERVICE: 05/06/2016 IDENTIFICATION: Client is a 56-year-old male presenting to the emergency department via the emergency medical service complaining of chest pain and pressure for three days. He was admitted to rule out myocardial infarction. The patient was medically cleared and found to not have a myocardial infarction and is now contesting his discharge and is refusing to be discharge. He is complaining of right ankle pain, but no other new complaints. He describes being very tired and does not believe that he can take care of himself. Every aspect of his life is now difficult because he has no energy. HISTORY OF PRESENT ILLNESS: I was asked to consult to assess the patient's competency. I met with him for a 30-minute evaluation and reviewed course and records kept by [facility]. Client's main issue is exhaustion and obesity. Co-occurring issues are increased stress from having a difficult time caring for himself. The condition is chronic and has been developing over years. He was initially admitted for chest pain and myocardial infarction has been ruled out. He currently has multiple symptoms of depression, poor sleep, energy, and concentration. He denied suicidal ideation, plan, or intent. All the above symptoms are made worse by increasing weight and decreasing energy. He has become socially isolated. He is currently presenting with no signs of emotional liability, cognitive deficits, or difficulty with impulse control. His reality testing, insight, and judgment are all fair. He is basically having a difficult time coping. PSYCHIATRIC REVIEW OF SYSTEMS: Was negative for chikis, psychosis, trauma, or substance abuse. MEDICATIONS: Allopurinol, potassium chloride, warfarin, torsemide, Cymbalta 60 mg daily, trazodone 100 mg h.s., melatonin 1 mg h.s., warfarin 5 mg daily, digoxin 0.25 mg daily, torsemide 40 mg daily, metoprolol 12.5 daily, atorvastatin 40 h.s., aspirin 81 daily. PAST MEDICAL HISTORY: 1. Obesity hypoventilation syndrome. 2. Obstructive sleep apnea. 3. Congestive heart failure. 4. Hypertension. 5. Coagulopathy. 6. Gout. 7. Degenerative joint disease. 8. Bilateral knee arthroscopy. ALLERGIES: 1. AZITHROMYCIN. 2. HEPARIN ANALOGS. FAMILY MEDICAL HISTORY: Positive for obesity. PAST PSYCHIATRIC HISTORY: The client states he has struggled with depression but denies history of inpatient hospitalization. SOCIAL HISTORY: Client was born and raised in [place], [place]. He described a good family and graduated from high school. Worked in [employer]. He enjoys model airplanes that are electronically controlled and fly. He denies drug and alcohol use. He denies suicidal ideation, plan, or intent. He stated he was in 1982, in 2006, and has three children. He was raised Jewish but does not participate. He currently has no legal problems. MENTAL STATUS: The client is morbidly obese CPAP on. He appeared to very tired and was laying on his side. During the session his mood brightened and he was calm, pleasant, easily engaged and cooperative. His mood was somewhat dysphoric. Affect congruent, flat, but with normal intensity. Thought process: Client is able to relate a coherent history. He is able to appreciate simple and complex abstractions. Thought content: Significant for themes of how to take care of himself and wanting more help. He denied suicidal ideation, plan, or intent. He is alert and oriented to person, place, and date. Immediate, short, and long-term memory were just mildly impaired. Attention and concentration relatively normal. Insight and judgment appropriate. Impulse control highly contained. Reality testing intact. Competence to handle current stressors is currently being overwhelmed. IMPRESSION: The patient is a 56-year-old white male who is struggling with symptoms of severe obesity and increasing fatigue and decreasing ability to attend to activities of daily living. He was admitted for a myocardial infarction; that was ruled out and he is cleared for discharge, but is very fearful and anxious about going home and taking care of himself. Client is competent to make medical decisions. This client's psychiatric illnesses is well managed with current dose of Cymbalta at 60 mg per day. He is mainly complaining of issues of failure to thrive and inability to care for himself. Given the patient's medical issues and weight, I believe he will continue to struggle with self-care. 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 Organ II: None. Organ III: Obesity, degenerate joint disease, obstructive sleep apnea, hypertension. Organ IV: Severe. Organ V: Current Global Assessment of Functioning equal to 50. PLAN: Client is requesting a penitentiary home. He is medically clear from a psychiatric standpoint and is on appropriate medications. Client is showing no desire to harm himself. I would encourage self-care and a transfer back to his home. Short of that, would also pursue a penitentiary home facility. If client has further psychiatric issues, I am happy to consult.
--- NOTE | 2016-05-06 19:36 | NUR ---
Toenail Removal Patient alerted staff that he had some bleeding on his left fourth toe. Pressure and dressing applied, bleeding stopped. A bandaid dressing was then applied to the toe. Patient states that the toenail was irritating him, catching on his sock. Patient states that he was manipulating the toenail and then pulled it off, causing the bleeding. Care is ongoing.
--- NOTE | 2016-05-06 23:07 | PCM.PNMED ---
Subjective Date of Service May 06, 2016 Subjective Patient still feels extremely tired. He also complained of continued pain in his right ankle from "gout". Due to the pain in his right ankle his left knee is hurting more when he tries to ambulate. His ambulation is quite limited. Exam Vital Signs Vital Sign - Last Date Time Temp Pulse Resp B/P Pulse Ox O2 Delivery O2 Flow Rate FiO2 05/06/16 19:51 36.5 59 18 127/73 95 Nasal Cannula 4.00 Intake and Output 05/05/16 05/05/16 05/06/16 Cumulative From/Thru 15:00 23:00 07:00 04/26/16 14:49 - 05/06/16 05:31 Intake Total 1272 ml 1510 ml 84587 ml Output Total 1100 ml 760 ml 34557 ml Balance 172 ml 750 ml 4605 ml Intake Oral 1272 ml 1510 ml 25594 ml IV Total 1000 ml Output Urine Total 1100 ml 760 ml 15868 ml # Voids 9 # Bowel Movements 1 0 5 Exam General: Patient is in no apparent distress when I entered the room he was sitting on the side of the bed. He appears fatigued.. HEENT: Head is atraumatic normocephalic. Eyes: Pupils are equally round and reactive to light and accommodation. Extraocular muscles are intact. Sclera are white anicteric. Subconjunctival mucosa is pink. Ears and nose are unremarkable. Oropharynx: There is no mucosal lesions, there is no thrush, there is no pharyngitis. Neck: Is supple, there are no nodes, or masses, or tenderness appreciated. Chest: Is clear to auscultation and percussion. There are no rales, rhonchi, wheezes or rubs appreciated. However, breath sounds are distant. Heart: Rate, rhythm is regular. There is no murmur, rub or gallop. However, heart tones are distant. Abdomen: Good bowel sounds are present. Abdomen is morbidly obese with a very large pannus.the abdomen is otherwise soft, nontender, no organomegaly or masses could be appreciated. Extremities: Are symmetrical and well perfused. There is 1+ pitting edema symmetrical of both lower extremities, there is no cellulitis, no rash. The right ankle shows no evidence of significant rubor, or calor, or dolor. Pain and tenderness is subjective. Neurologic: There are no focal neurological deficits. Cranial nerves II through XII are intact. There are no sensory or motor deficits. Psychiatric: Patients mood is calm and shows no sign of agitation. Genital: Deferred Rectal: Deferred Lab and Diagnostics Result Diagram: 05/06/1661205/06/16612 Microbiology Name: MASTER FREEMAN Age/Sex: 56/M Attend Dr: Zaki Graves MD Acct: [id number] Unit: [id number] Status: ADM [facility] [place] [facility] [place]-1 Re04/26/16 Disch: Specimen: [id number] Collected: 04/28/16 Status: COMP Req#: [id number] Received: 04/28/16 Source: JEAN Sp Desc : Subm Dr: Roxanne Pantoja MD Ordered: RAPID FLU IRS Comments: Collected by Nurse/Unit? Y/N Y Procedure Result Verified Site Microbiology [facility] INFLUENZA RAPID AG SCREEN Final 04/28/16-2246 RESULT NEGATIVE FOR INFLUENZA TYPE A AND B This rapid assay is a screen test only for Influenza A&B and does not definitively rule out the presence of FLU A & B or other respiratory viral pathogens. The assay's sensitivity varies on the specimen type submitted. Nasal washes are optimum. Recommend respiratory viral cultures and DFA to confirm negative screens and rule out other viral pathogens. Per [facility], the sensitivity of this method is approximately 50% for H1N1. A negative result does NOT rule out Novel H1N1 (Swine Flu) X-Rays, CTs and MRIs PROCEDURE: X-RAY CHEST, TWO VIEWS ([id number]) INDICATIONS: dyspnea TECHNIQUE: 2 views of the chest were acquired. COMPARISON: [facility], CR, XR CHEST 1VW (PORTABLE), 04/26/2016, 14: 49. [facility], CR, XR CHEST 1VW (PORTABLE), 04/17/2016, 20:00. [facility], CR, XR CHEST 1VW (PORTABLE), 03/20/2016, 5:25. [facility], CR, XR CHEST 1VW (PORTABLE), 03/18/2016, 11:32. [facility], CR, XR CHEST 2VW, 03/16/2016, 13:47. FINDINGS: Surgical changes and devices: Median sternotomy clips. Lungs and pleura: No pleural effusions or pneumothorax. There is prominence of the pulmonary vasculature and mild, diffuse bilateral interstitial densities are present. Mediastinum: Mediastinal contours are normal. Heart size is enlarged as before. Bones and chest wall: No suspicious bony abnormalities. Soft tissues appear unremarkable. IMPRESSION: No new suspicious for chronic CHF. Correlate clinically. Dictated by: Manny BARNETT Interpreted: Linnea Mobley MD on 04/29/2016 at 16:56 Transcribed by: NICOLÁS on 04/29/2016 at 16:56 Cardiac Echo Impressions Name: MASTER FREEMAN MStudy D ate: 04/27/2016 Height: 72 in Hospital Exam Location: [facility] Weight: 498 lb Gender: Male BSA: 3.1 m2 : 1960 Age: 56 yrs BP: 96/68 m mHg Reason For Study: Congestive Heart Failure History: AVR-porcine Ordering Physician: [facility]PITALIST [facility] Performed By: Arabella Campbell Referring Physician: Dr. Alexander Bruno Interpretation Summary Limited Echo to assess LV function: Echo poor quality due to body habitus. 1) Grossly, LV function estimated at 25-30%. Wall motion difficult to assess due to limited visualization. 2) No pericardial effusion present. 3) Compared to the Echo done 03/17/2016, LVEF appears lower on today's study. I think EF on prior study is closer to 35% on my assessment. Procedure: A two-dimensional transthoracic echocardiogram with color flow and Doppler was performed. The study quality was technically difficult. Comparison is made with the echocardiogram of 03/17/2016. A contrast injection of Definity was performed to improve assessment of LV function. No complications with contrast. The patient was in atrial fibrillation with heart rates between 65-85 bpm during the exam. Left Ventricle: The left ventricle is markedly dilated. Left ventricular wall thickness is borderline increased. The ejection fraction is estimated to be 25-30%. Regional wall motion abnormalities cannot be excluded due to limited visualization. Diastolic function could not be accurately assessed due to unobtainable data. Right Ventricle: The right ventricle is not well visualized. Atria: The left atrium is not well visualized. Right atrium not well visualized. Mitral Valve: The mitral valve is grossly normal. There is at least trace mitral regurgitation. Aortic Valve: There is a porcine aortic valve. The prosthetic aortic valve is not well visualized. Tricuspid Valve: The tricuspid valve is not well visualized. Pulmonary artery pressures cannot be estimated because of the lack of a measurable TR jet velocity. Pulmonic Valve: The pulmonic valve is not well visualized. There is mild pulmonic regurgitation. Pericardium/ Pleura There is no pericardial effusion. MMode/2D Measurements & Calculations LVIDd LV martinez. diameter/BSA (cm/m^2) LV sys. diameter/BSA (cm/m^2) : 7.9 cm LVIDs : 7.1 cm FS: 10.0 % IVSd : 0.9cm LVPWd : 1.1 cm Doppler Measurements & Calculations Ao V2 max PA V2 max MV V2 mean Ao V2 mean : 259.3 cm/sec : 79.5 cm/sec : 104.6 cm/sec : 189.7 cm/sec Ao max PG PA mean PG MV mean PG Ao V2 VTI: 48.4 cm : 26.9 mmHg Ao mean PG PA Accel Time MV V2 VTI: 30.8 cm : 15.8 mmHg PA V2 mean : 48.8 cm/sec Reading Physician:06:07 PM Assessment & Plan 56-year-old male with dull ache chest pressure and intermittent sharp chest pain admitted for ACS evaluation, obesity, likely contributory sCHF. Chest pain -- Serial troponins negative -- Unremarkable lipids -- Continue atorvastatin 40 mg daily at bedtime Acute on chronic systolic CHF with a porcine aortic valve replacement, now stable to improved -- The patient's ejection fraction has decreased from 35% to 20-25% since last echocardiogram. -- Continue metoprolol as recommended by cardiology -- Continue torsemide 40 mg daily torsemide per recommendations from cardiology -- Spironolactone 25 daily per recommendations from cardiology: Held today for hypotension -- Digoxin 0.25 mg daily at noon per recommendations by cardiology. Will check digoxin level in a.m. -- Continue aspirin 81 mg daily V- tach -- Patient has had a long run of V. tach which extended to 26 beats in a row this a.m. He has had repeated short runs of V. tach prior to this. -- I have discussed case with Dr. Edil Reese the sawsmith who saw the patient last week. If patient was not so heavy he certainly would be a candidate for possible coronary artery catheterization and possible AICD placement. However, Dr. Reese believes the patient is too heavy for our cardiac catheterization table. Sending the patient to an outpatient bariatric center for stress testing will likely not be helpful to this patient. I will see if there is a bariatric facility in the [facility] that could accommodate this patient for cardiac catheterization and AICD placement. The wound will need to continually closely monitor the patient for lethal arrhythmia. While on the newly started cardiac medication regimen as listed above. -- We will continue to monitor and discuss with cardiology. Infection workup -- Influenza screen negative -- Chest x-ray no signs of acute pulmonary processes Deconditioning -- Physical therapy to continue to eval and treat. However, patient is having pain in his right ankle from gout and pain in his left knee which is limiting his activity level. This would also interfere with him having excessive successful transition to home. -- Possible SNF placement if he cannot get accepted to a [facility] hospital for further care. One option would be [facility]. Acute gouty attack per patient -- We will continue colchicine. -- Continue allopurinol as before. Chronic issues known prior to admission, present on admission . Obesity hypoventilation syndrome. VDRF On 2-3L home 2. History of pneumonia. Obstructive sleep apnea, will continue on BiPAP . systolic Congestive heart failure 2010, showing an LVEF of 35% to 40% >> 25% prior to AvR porcine for AoStenosis >> EF 45% 03/2016 / . Hypertension / runs of V-tach / Chronic atrial fibrillation on Coumadin. . Coagulopathy with elevated INR and PTT, status post previous workup. Warfarin dosing per pharmacy. . Morbid obesity. . Degenerative joint disease. . History of nephrolithiasis. history of renal failure Diet cardiac The patient presented with chest pain and had a full cardiac workup. The patient's troponins were negative and there were no new EKG changes. Cardiology wanted to do a cardiac stress test on the patient however we do not have a bariatric bed in order to perform cardiac stress test. So it was decided that the patient should have a stress test as an outpatient since he had been medically stable. Cardiology made recommendations to change the patient's medications and decrease his torsemide to 40 mg daily, added spironolactone 25 mg daily, digoxin 0.25 daily, atorvastatin 40 mg daily and metoprolol 12.5 mg daily. However, the patient continues to have runs of V. tach and had a 26 beat run of V. tach today. Will try to find a bariatric facility that can take care of his cardiac needs. This would include potential for coronary artery catheterization and AICD placement. Pain Evaluation: Adequate Pain Control GI Prophylaxis: Proton Pump Inhibitor VTE Prophylaxis: Other (the patient is on warfarin therapy per pharmacy) VTE Mechanical Devices: Intermittant Pneumatic CD Resuscitation Status: CPR: Attempt Resuscitation Hamilton Burger MD May 06, 2016 23:07
[2016-05-07] VITALS (10 sets, daily range): BP systolic 96–140; BP diastolic 62–90; PULSE 41–80; RESP 16–18; O2SAT 92–97
--- NOTE | 2016-05-07 06:23 | NUR ---
Activity Pt remains in room this shift, no complaints or requests regarding meals. He is aware of DC at noon with home health- however states he may be going to because they can handle bariatric patients better, and be treated by a labor mediator. Pt informed this RN he still wants to see the denial of services document from his insurance. Pt's brother is at bedside, requested laundry be cleaned tonight. L toe nail bandaid CDI, no signs of bleeding. No complaints of pain in chest or leg. No complaints of SOB- pt remains on 2L NC while awake and bipap with 4 L at night. Care continues
[2016-05-07 06:44] LABS: INR 1.92 ratio
[2016-05-07 06:48] LABS: BASOPHILS % (AUTO) 0.2 % (0-3); EOSINOPHILS % (AUTO) 17.8 % (0-5); MONOCYTES % (AUTO) 8.5 % (4-12); Mean Corpuscular Hemoglobin 24.4 pg (27.0-35.0); Mean Corpuscular Volume 81.9 fL (81-100); NEUTROPHILS % (AUTO) 63.4 % (40-74); Platelet Count 165 bil/L (150-400)
[2016-05-07] MEDS: Pantoprazole 40 mg ER24 Tablet PO SCH (10:13)
[2016-05-07] MEDS: DULoxetine 30 mg DR Capsule PO SCH (10:14)
[2016-05-07] MEDS: MeTOProlol XL 25 mg ER24 Tablet PO SCH (10:21)
--- NOTE | 2016-05-07 12:33 | PCM.PHAPRO ---
Progress Date of Service: May 07, 2016 Warfarin Dosing Indication: Afib Home Dose: 4mg daily Anticoagulation Trends: May 05-May 06-May 07-Apr 1.93 1.91 2.04 1.92 -0.14 1.91 0.13 -0.12 4 MG 5 MG 5 MG 6 MG GOAL INR: 2-3 Summary: INR is trending down will dose tonight with 6 mg to get back in range. Pharmacy will continue to follow daily. Thank you for consulting pharmacy in the care of this patient. THANKS! Leah Smith PharmD May 07, 2016 12:33
--- NOTE | 2016-05-07 13:21 | NUR ---
Social Work Readiness for Discharge: SW met with patient at bedside to discuss discharge plan. Per report in rounds, patient requires further cardiac workup for run of V tach. Attending MD to possibly transfer patient to once accepting MD obtained. SW consulted with MD for follow up on transfer. Alterative plans arranged previously for home with [facility] services with [facility]. Access previously provided and [facility] social service agency director Elly, following for caregiver assignment. Caregiver referral sent to [facility] registry but caregiver unable to be established. [facility] caregiver referral expitited for review with [facility] manager utilities [employer], /[phone] who is also following. Therapy assessed patient and patient is at baseline. No other anticipated discharge needs at this time. SW to follow for possible [facility] transfer vs home with [facility] and [facility] to follow. PLAN:[facility] transfer, pending accepting MD vs home with [facility] via [facility] (Access provided) and [facility] to follow. Emir BRADLEY Addendum: 05/07/16 at 1524 by DANICA BROWN If transfer unable to take place, patient to discharge home with above services. Patient will be responsible for hospitalization stay if he refuses discharge with [facility], already in place. Emir Raya
[2016-05-07] MEDS ORDERED: MELA1TAB9 PO (18:14)
[2016-05-07] MEDS ORDERED: COLC0.6T52 PO (18:14)
--- NOTE | 2016-05-07 18:15 | PCM.DIMED ---
Discharge Instructions Date of Service May 07, 2016 Dates of Hospitalization Apr 26, 2016 at 17:51 Discharge Diagnosis Discharge Diagnosis Acute CHF Hypertension Chronic atrial fibrillation currently on Coumadin Diet Heart Healthy, Diabetic Activity Other (gradually return to normal activities as tolerated) Call your provider Fever or Chills, Shortness of breath, Chest pain Patient Instructions Please call your PCP and rubber curer to make a follow-up appointment. Home health services will be in to check on the patient. [facility] services have also been awarded however a caregiver has not been found at this time. Once a caregiver has been found then he will continue to follow-up with [facility]. It is recommended that you have a cardiac stress which should be performed at a bariatric center. Either at [facility] with Dr.Devorah Paz [phone] or [facility] [place] with either Dr. Zayda Camara or Dr. Mauricio Mesa [phone]. Please call to make an appointment. Please continue to follow up with her PCP for Coumadin clinic in regards to your daily Coumadin usage. Follow-up plan The patient should call [facility] with Dr.Devorah Paz [phone] or [facility] [place] with either Dr. Zayda Camara or Dr. Mauricio Mesa [phone]. To schedule appointment for a cardiac stress test only 2 places locally who did cardiac stress test for bariatric patients. Follow-up Provider: Maya Bruno MD Follow-up with PCP in: 1 week (if an appointment has not already been made please call and schedule appointment) Provider: Edil Reese MD Follow-up in: 1 week (If an appointment has not been made please call and schedule an appointment) Hamilton Burger MD May 07, 2016 18:15
--- NOTE | 2016-05-07 19:09 | NUR ---
Case management D: I spoke with pt to verify that he is aware that he has been discharged, that [place] has denied his appeal of discharge, and that he will be responsible for hospital cost from this point. Pt's only response was to wave me away and close his eyes.
--- NOTE | 2016-05-07 20:11 | NUR ---
Bradycardia, Activity technician terminal and repeater called with reports of bradycardia. Patient resting, asymptomatic. When awoken heart rate returned to 50s-60s. Patient out of bed today to shower, sat at bed frequently to use computer. Care is ongoing
--- NOTE | 2016-05-07 23:49 | PCM.PNMED ---
Subjective Date of Service May 07, 2016 Subjective Patient is playing about the same. However, he does admit that his right ankle is feeling a little bit better on the colchicine. He has no new complaints. Exam Vital Signs Vital Sign - Last Date Time Temp Pulse Resp B/P Pulse Ox O2 Delivery O2 Flow Rate FiO2 05/07/16 23:00 63 05/07/16 21:00 Supplement Oxygen CPAP/BIPAP 05/07/16 19:37 36.5 18 140/90 94 4.00 Intake and Output 05/06/16 05/06/16 05/07/16 Cumulative From/Thru 15:00 23:00 07:00 04/26/16 14:49 - 05/07/16 06:00 Intake Total 1308 ml 1461 ml 97544 ml Output Total 800 ml 960 ml 44468 ml Balance 508 ml 501 ml 5614 ml Intake Oral 1308 ml 1461 ml 91116 ml IV Total 1000 ml Output Urine Total 800 ml 960 ml 51848 ml # Voids 9 # Bowel Movements 1 0 6 Exam General: Patient is in no apparent distress when I entered the room he was sitting on the side of the bed. He appears fatigued.. HEENT: Head is atraumatic normocephalic. Eyes: Pupils are equally round and reactive to light and accommodation. Extraocular muscles are intact. Sclera are white anicteric. Subconjunctival mucosa is pink. Ears and nose are unremarkable. Oropharynx: There is no mucosal lesions, there is no thrush, there is no pharyngitis. Neck: Is supple, there are no nodes, or masses, or tenderness appreciated. Chest: Is clear to auscultation and percussion. There are no rales, rhonchi, wheezes or rubs appreciated. However, breath sounds are distant. Heart: Rate, rhythm is regular. There is no murmur, rub or gallop. However, heart tones are distant. Abdomen: Good bowel sounds are present. Abdomen is morbidly obese with a very large pannus.the abdomen is otherwise soft, nontender, no organomegaly or masses could be appreciated. Extremities: Are symmetrical and well perfused. There is 1+ pitting edema symmetrical of both lower extremities, there is no cellulitis, no rash. The right ankle shows no evidence of significant rubor, or calor, or dolor. Pain and tenderness is subjective. Neurologic: There are no focal neurological deficits. Cranial nerves II through XII are intact. There are no sensory or motor deficits. Psychiatric: Patients mood is calm and shows no sign of agitation. Genital: Deferred Rectal: Deferred Lab and Diagnostics Result Diagram: 05/07/1660405/07/16604 Microbiology Name: MASTER FREEMAN Age/Sex: 56/M Attend Dr: Zaki Graves MD Acct: [id number] Unit: [id number] Status: ADM Aida Location: [facility] 1027-1 Re04/26/16 Disch: Specimen: [id number] Collected: 04/28/16 Status: COMP Req#: [id number] Received: 04/28/16 Source: JEAN Sp Desc : Subm Dr: Roxanne Pantoja MD Ordered: RAPID FLU IRS Comments: Collected by Nurse/Unit? Y/N Y Procedure Result Verified Site Microbiology [facility] INFLUENZA RAPID AG SCREEN Final 04/28/16-2246 RESULT NEGATIVE FOR INFLUENZA TYPE A AND B This rapid assay is a screen test only for Influenza A&B and does not definitively rule out the presence of FLU A & B or other respiratory viral pathogens. The assay's sensitivity varies on the specimen type submitted. Nasal washes are optimum. Recommend respiratory viral cultures and DFA to confirm negative screens and rule out other viral pathogens. Per CDC, the sensitivity of this method is approximately 50% for H1N1. A negative result does NOT rule out Novel H1N1 (Swine Flu) X-Rays, CTs and MRIs PROCEDURE: X-RAY CHEST, TWO VIEWS ([id number]) INDICATIONS: dyspnea TECHNIQUE: 2 views of the chest were acquired. COMPARISON: [facility], CR, XR CHEST 1VW (PORTABLE), 04/26/2016, 14: 49. [facility], CR, XR CHEST 1VW (PORTABLE), 04/17/2016, 20:00. [facility], CR, XR CHEST 1VW (PORTABLE), 03/20/2016, 5:25. [facility], CR, XR CHEST 1VW (PORTABLE), 03/18/2016, 11:32. [facility], CR, XR CHEST 2VW, 03/16/2016, 13:47. FINDINGS: Surgical changes and devices: Median sternotomy clips. Lungs and pleura: No pleural effusions or pneumothorax. There is prominence of the pulmonary vasculature and mild, diffuse bilateral interstitial densities are present. Mediastinum: Mediastinal contours are normal. Heart size is enlarged as before. Bones and chest wall: No suspicious bony abnormalities. Soft tissues appear unremarkable. IMPRESSION: No new suspicious for chronic CHF. Correlate clinically. Dictated by: Manny BARNETT Interpreted: Linnea Mobley MD on 04/29/2016 at 16:56 Transcribed by: NICOLÁS on 04/29/2016 at 16:56 Cardiac Echo Impressions Name: MASTER FREEMAN ate: 04/27/2016 Height: 72 in Hospital Exam Location: [facility] Weight: 498 lb Gender: Male BSA: 3.1 m2 : 1960 Age: 56 yrs BP: 96/68 m mHg Reason For Study: Congestive Heart Failure History: AVR-porcine Ordering Physician: HOSPITALIST [facility] Performed By: Arabella Campbell Referring Physician: Dr. Alexander Bruno Interpretation Summary Limited Echo to assess LV function: Echo poor quality due to body habitus. 1) Grossly, LV function estimated at 25-30%. Wall motion difficult to assess due to limited visualization. 2) No pericardial effusion present. 3) Compared to the Echo done 03/17/2016, LVEF appears lower on today's study. I think EF on prior study is closer to 35% on my assessment. Procedure: A two-dimensional transthoracic echocardiogram with color flow and Doppler was performed. The study quality was technically difficult. Comparison is made with the echocardiogram of 03/17/2016. A contrast injection of Definity was performed to improve assessment of LV function. No complications with contrast. The patient was in atrial fibrillation with heart rates between 65-85 bpm during the exam. Left Ventricle: The left ventricle is markedly dilated. Left ventricular wall thickness is borderline increased. The ejection fraction is estimated to be 25-30%. Regional wall motion abnormalities cannot be excluded due to limited visualization. Diastolic function could not be accurately assessed due to unobtainable data. Right Ventricle: The right ventricle is not well visualized. Atria: The left atrium is not well visualized. Right atrium not well visualized. Mitral Valve: The mitral valve is grossly normal. There is at least trace mitral regurgitation. Aortic Valve: There is a porcine aortic valve. The prosthetic aortic valve is not well visualized. Tricuspid Valve: The tricuspid valve is not well visualized. Pulmonary artery pressures cannot be estimated because of the lack of a measurable TR jet velocity. Pulmonic Valve: The pulmonic valve is not well visualized. There is mild pulmonic regurgitation. Pericardium/ Pleura There is no pericardial effusion. MMode/2D Measurements & Calculations LVIDd LV martinez. diameter/BSA (cm/m^2) LV sys. diameter/BSA (cm/m^2) : 7.9 cm LVIDs : 7.1 cm FS: 10.0 % IVSd : 0.9cm LVPWd : 1.1 cm Doppler Measurements & Calculations Ao V2 max PA V2 max MV V2 mean Ao V2 mean : 259.3 cm/sec : 79.5 cm/sec : 104.6 cm/sec : 189.7 cm/sec Ao max PG PA mean PG MV mean PG Ao V2 VTI: 48.4 cm : 26.9 mmHg Ao mean PG PA Accel Time MV V2 VTI: 30.8 cm : 15.8 mmHg PA V2 mean : 48.8 cm/sec Reading Physician:06:07 PM Assessment & Plan 56-year-old male with dull ache chest pressure and intermittent sharp chest pain admitted for ACS evaluation, obesity, likely contributory sCHF. Chest pain -- Serial troponins negative -- Unremarkable lipids -- Continue atorvastatin 40 mg daily at bedtime Acute on chronic systolic CHF with a porcine aortic valve replacement, now stable to improved -- The patient's ejection fraction has decreased from 35% to 20-25% since last echocardiogram. Here however I spoke with patient's leather belt maker Dr. Pantoja's partner Dr. Alanna Judd and discovered that patient had a normal cardiac cath in 2009 and that was a left and right heart catheterization. Patient also had an echocardiogram in September 2013 which showed severely decreased left ventricle systolic function with severe dilatation with an ejection fraction of 20-25% patient had a bioprosthetic aortic valve with normal function. The ascending aorta was not well seen, but may be dilated beyond the sinotubular junction. There is mild to moderate functional mitral regurgitation. There is moderate pulmonary hypertension estimated be 45-50 per 50 mmHg. The right ventricle was severely dilated with severely decreased systolic function and mild tricuspid regurgitation. These images were compared to the prior study dated 08/19/2011. The left ventricle was significantly more dilated and systolic function had decreased significantly from previous ejection fraction of 35-40%. Therefore it does not appear that the patient's cardiac function has changed much since 2013. -- Continue metoprolol as recommended by cardiology -- Continue torsemide 40 mg daily torsemide per recommendations from cardiology -- Spironolactone 25 daily per recommendations from cardiology: Held today for hypotension -- Digoxin 0.25 mg daily at noon per recommendations by cardiology. Will check digoxin level in a.m. -- Continue aspirin 81 mg daily V- tach -- Patient has had a long run of V. tach which extended to 26 beats in a row early yesterday but none since. He has had repeated short runs of V. tach prior to this. -- I have discussed case with Dr. Edil Reese the leather belt maker who saw the patient last week. If patient was not so heavy he certainly would be a candidate for possible coronary artery catheterization and possible AICD placement. However, Dr. Reese believes the patient is too heavy for our cardiac catheterization table. Sending the patient to an outpatient bariatric center for stress testing will likely not be helpful to this patient. I will see if there is a bariatric facility in the [place] area that could accommodate this patient for cardiac catheterization and AICD placement. The wound will need to continually closely monitor the patient for lethal arrhythmia. While on the newly started cardiac medication regimen as listed above. -- I discussed the possibility of patient receiving an implantable automatic cardiac defibrillator with Dr. Wanda Judd covering for the patient's leather belt maker Dr. Perez. Dr. Judd believes that patient could be worked up for possible AICD as an outpatient Infection workup -- Influenza screen negative -- Chest x-ray no signs of acute pulmonary processes Deconditioning -- Physical therapy to continue to eval and treat. However, patient is having pain in his right ankle from gout and pain in his left knee which is limiting his activity level. This would also interfere with him having excessive successful transition to home. -- Possible SNF placement if he cannot get accepted to a [facility] for further care. One option would be [place] care. Acute gouty attack per patient -- We will continue colchicine. -- Continue allopurinol as before. Chronic issues known prior to admission, present on admission . Obesity hypoventilation syndrome. VDRF On 2-3L home 2. History of pneumonia. Obstructive sleep apnea, will continue on BiPAP . systolic Congestive heart failure 2010, showing an LVEF of 35% to 40% >> 25% prior to AvR porcine for AoStenosis >> EF 45% 03/2016 / . Hypertension / runs of V-tach / Chronic atrial fibrillation on Coumadin. . Coagulopathy with elevated INR and PTT, status post previous workup. Warfarin dosing per pharmacy. . Morbid obesity. . Degenerative joint disease. . History of nephrolithiasis. history of renal failure Depression -Patient was seen by Dr. 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 [place] II: None. [place] III: Obesity, degenerate joint disease, obstructive sleep apnea, hypertension. [place] IV: Severe. [place] V: Current Global Assessment of Functioning equal to 50. PLAN: Client is requesting a mcc home. He is medically clear from a psychiatric standpoint and is on appropriate medications. Client is showing no desire to harm himself. I would encourage self-care and a transfer back to his home. Short of that, would also pursue a mcc home facility. If client has further psychiatric issues, I am happy to consult. " Diet cardiac The patient presented with chest pain and had a full cardiac workup. The patient's troponins were negative and there were no new EKG changes. Cardiology wanted to do a cardiac stress test on the patient however we do not have a bariatric bed in order to perform cardiac stress test. So it was decided that the patient should have a stress test as an outpatient since he had been medically stable. Cardiology made recommendations to change the patient's medications and decrease his torsemide to 40 mg daily, added spironolactone 25 mg daily, digoxin 0.25 daily, atorvastatin 40 mg daily and metoprolol 12.5 mg daily. I have been told by case management that the patient no longer meets criteria for continued hospitalization and that the patient needs to be discharged home. The patient is refusing to go home as he does not feel that it is safe for him to go home. I have written a discharge order at the request of case management services. Case management has informed the patient that he will now be responsible for his bill. Pain Evaluation: Adequate Pain Control GI Prophylaxis: Proton Pump Inhibitor VTE Prophylaxis: Other (the patient is on warfarin therapy per pharmacy) VTE Mechanical Devices: Intermittant Pneumatic CD Resuscitation Status: CPR: Attempt Resuscitation Hamilton Burger MD May 07, 2016 23:48
[2016-05-08] VITALS (7 sets, daily range): BP systolic 100–123; BP diastolic 61–66; PULSE 49–74; RESP 16–20; O2SAT 95–99
--- NOTE | 2016-05-08 05:31 | NUR ---
Cardiac States chest discomfort unchanged, remains a dull ache. Tele A-fib with HR 50's - 60's IVCD and PVC. Also had several runs of 6 and 7 beat V-tach overnight. Patient was asymptomatic without increased chest pain.
[2016-05-08 06:19] LABS: BASOPHILS % (AUTO) 0.2 % (0-3); EOSINOPHILS % (AUTO) 16.8 % (0-5); MONOCYTES % (AUTO) 6.6 % (4-12); Mean Corpuscular Hemoglobin 24.6 pg (27.0-35.0); Mean Corpuscular Volume 82.1 fL (81-100); NEUTROPHILS % (AUTO) 67.2 % (40-74); Platelet Count 181 bil/L (150-400)
[2016-05-08 06:30] LABS: INR 2.22 ratio
[2016-05-08 06:35] LABS: Magnesium 1.9 mg/dL (1.6-2.6); Phosphorus 3.8 mg/dL (2.5-4.9)
--- NOTE | 2016-05-08 06:38 | NUR ---
Cardiac 38 beats V-tach then converted bach to chronic A-fib Patient sleeping at the time. Denies any changes in pain. Hospitalist notified, no new orders at this time.
[2016-05-08] MEDS: Pantoprazole 40 mg ER24 Tablet PO SCH (07:50)
--- NOTE | 2016-05-08 08:26 | PCM.PHAPRO ---
Progress Warfarin Dosing May 07-May 08-Apr INR 2.04 1.92 2.22 CHANGE 0.13 -0.12 0.3 DOSE 5 MG 6 MG 5 MG Ramírez Renteria May 08, 2016 08:25
[2016-05-08] MEDS: MeTOProlol XL 25 mg ER24 Tablet PO SCH (08:30)
[2016-05-08] MEDS: DULoxetine 30 mg DR Capsule PO SCH (09:22)
--- NOTE | 2016-05-08 10:32 | NUR ---
Cardiac / IV data communications technician called and reported that pt just had 8 beats of V-tach. Checked on pt and he was sleeping but was easily awakened. Also called IV therapy to ask them to place an IV. Pt currently has no IV access. Care continues.
--- NOTE | 2016-05-08 16:36 | NUR ---
Tele / V-tach NOC shift RN reported that pt had a run of 38 beats of V-tach in this a.m. Hospitalist was notified by night RN. Day shift hospitalist (Dr. Dumont) and [facility] shift nurse spoke with him. Pt is asymptomatic. Received repeated calls from the receptionist/telephone operator throughout the day with reports of V-tach: 8 beats V-tach at 1030 hrs (pt sleeping; awoke him and he stated he was okay) 6 beats of V-tach at 1238 (pt sitting up at side of bed) 6 beats of V-tach at 1340 6 beats of V-tach at 1448 Pt remains asymptomatic. He does complain of right ankle pain from his gout. Pt remains on tele; IV access has been re-established. Care continues.
--- NOTE | 2016-05-08 23:40 | PCM.PNMED ---
Subjective Date of Service May 08, 2016 Subjective Patient is sitting up on the side of his bed. He states he becomes exhausted with any exertion. He continues to believe that he will not be safe at home. Exam Vital Signs Vital Sign - Last Date Time Temp Pulse Resp B/P Pulse Ox O2 Delivery O2 Flow Rate FiO2 05/08/16 22:01 58 05/08/16 15:00 37.0 18 114/66 99 CPAP 05/08/16 04:45 4.00 Intake and Output 05/07/16 05/07/16 05/08/16 Cumulative From/Thru 15:00 23:00 07:00 04/26/16 14:49 - 05/08/16 06:08 Intake Total 1200 ml 2311 ml 27509 ml Output Total 1080 ml 1350 ml 74961 ml Balance 120 ml 961 ml 6695 ml Intake Oral 1200 ml 2311 ml 80537 ml IV Total 1000 ml Output Urine Total 1080 ml 1350 ml 01341 ml # Voids 9 # Bowel Movements 0 6 Exam General: Patient is in no apparent distress when I entered the room he was sitting on the side of the bed. He appears fatigued.. HEENT: Head is atraumatic normocephalic. Eyes: Pupils are equally round and reactive to light and accommodation. Extraocular muscles are intact. Sclera are white anicteric. Subconjunctival mucosa is pink. Ears and nose are unremarkable. Oropharynx: There is no mucosal lesions, there is no thrush, there is no pharyngitis. Neck: Is supple, there are no nodes, or masses, or tenderness appreciated. Chest: Is clear to auscultation and percussion. There are no rales, rhonchi, wheezes or rubs appreciated. However, breath sounds are distant. Heart: Rate, rhythm is regular. There is no murmur, rub or gallop. However, heart tones are distant. Abdomen: Good bowel sounds are present. Abdomen is morbidly obese with a very large pannus.the abdomen is otherwise soft, nontender, no organomegaly or masses could be appreciated. Extremities: Are symmetrical and well perfused. There is 1+ pitting edema symmetrical of both lower extremities, there is no cellulitis, no rash. The right ankle shows no evidence of significant rubor, or calor, or dolor. Pain and tenderness is subjective. Neurologic: There are no focal neurological deficits. Cranial nerves II through XII are intact. There are no sensory or motor deficits. Psychiatric: Patients mood is calm and shows no sign of agitation. Genital: Deferred Rectal: Deferred Lab and Diagnostics Result Diagram: 05/08/1655 05/08/16 0555 Microbiology Name: MASTER FREEMAN Age/Sex: 56/M Attend Dr: Zaki Graves MD Acct: [id number] Unit: [id number] Status: ADM Aida Location: [facility] [place] 1027-1 Re04/26/16 Disch: Specimen: [id number] Collected: 04/28/16 Status: COMP Req#: [id number] Received: 04/28/16 Source: JEAN Cullen Desc : Subm Dr: Roxanne Pantoja MD Ordered: RAPID FLU IRS Comments: Collected by Nurse/Unit? Y/N Y Procedure Result Verified Site Microbiology [facility] INFLUENZA RAPID AG SCREEN Final 04/28/16-2246 RESULT NEGATIVE FOR INFLUENZA TYPE A AND B This rapid assay is a screen test only for Influenza A&B and does not definitively rule out the presence of FLU A & B or other respiratory viral pathogens. The assay's sensitivity varies on the specimen type submitted. Nasal washes are optimum. Recommend respiratory viral cultures and DFA to confirm negative screens and rule out other viral pathogens. Per [facility], the sensitivity of this method is approximately 50% for H1N1. A negative result does NOT rule out Novel H1N1 (Swine Flu) X-Rays, CTs and MRIs PROCEDURE: X-RAY CHEST, TWO VIEWS ([id number]) INDICATIONS: dyspnea TECHNIQUE: 2 views of the chest were acquired. COMPARISON: [facility], CR, XR CHEST 1VW (PORTABLE), 04/26/2016, 14: 49. [facility], CR, XR CHEST 1VW (PORTABLE), 04/17/2016, 20:00. [facility], CR, XR CHEST 1VW (PORTABLE), 03/20/2016, 5:25. [facility], CR, XR CHEST 1VW (PORTABLE), 03/18/2016, 11:32. [facility], CR, XR CHEST 2VW, 03/16/2016, 13:47. FINDINGS: Surgical changes and devices: Median sternotomy clips. Lungs and pleura: No pleural effusions or pneumothorax. There is prominence of the pulmonary vasculature and mild, diffuse bilateral interstitial densities are present. Mediastinum: Mediastinal contours are normal. Heart size is enlarged as before. Bones and chest wall: No suspicious bony abnormalities. Soft tissues appear unremarkable. IMPRESSION: No new suspicious for chronic CHF. Correlate clinically. Dictated by: Manny BARNETT Interpreted: Linnea Mobley MD on 04/29/2016 at 16:56 Transcribed by: NICOLÁS on 04/29/2016 at 16:56 Cardiac Echo Impressions Name: MASTER FREEMAN MStudy D ate: 04/27/2016 Height: 72 in Hospital Exam Location: [facility] Weight: 498 lb Gender: Male BSA: 3.1 m2 : 1960 Age: 56 yrs BP: 96/68 m mHg Reason For Study: Congestive Heart Failure History: AVR-porcine Ordering Physician: [facility]PITALIST [facility] Performed By: Arabella Campbell Referring Physician: Dr. Alexander Bruno Interpretation Summary Limited Echo to assess LV function: Echo poor quality due to body habitus. 1) Grossly, LV function estimated at 25-30%. Wall motion difficult to assess due to limited visualization. 2) No pericardial effusion present. 3) Compared to the Echo done 03/17/2016, LVEF appears lower on today's study. I think EF on prior study is closer to 35% on my assessment. Procedure: A two-dimensional transthoracic echocardiogram with color flow and Doppler was performed. The study quality was technically difficult. Comparison is made with the echocardiogram of 03/17/2016. A contrast injection of Definity was performed to improve assessment of LV function. No complications with contrast. The patient was in atrial fibrillation with heart rates between 65-85 bpm during the exam. Left Ventricle: The left ventricle is markedly dilated. Left ventricular wall thickness is borderline increased. The ejection fraction is estimated to be 25-30%. Regional wall motion abnormalities cannot be excluded due to limited visualization. Diastolic function could not be accurately assessed due to unobtainable data. Right Ventricle: The right ventricle is not well visualized. Atria: The left atrium is not well visualized. Right atrium not well visualized. Mitral Valve: The mitral valve is grossly normal. There is at least trace mitral regurgitation. Aortic Valve: There is a porcine aortic valve. The prosthetic aortic valve is not well visualized. Tricuspid Valve: The tricuspid valve is not well visualized. Pulmonary artery pressures cannot be estimated because of the lack of a measurable TR jet velocity. Pulmonic Valve: The pulmonic valve is not well visualized. There is mild pulmonic regurgitation. Pericardium/ Pleura There is no pericardial effusion. MMode/2D Measurements & Calculations LVIDd LV martinez. diameter/BSA (cm/m^2) LV sys. diameter/BSA (cm/m^2) : 7.9 cm LVIDs : 7.1 cm FS: 10.0 % IVSd : 0.9cm LVPWd : 1.1 cm Doppler Measurements & Calculations Ao V2 max PA V2 max MV V2 mean Ao V2 mean : 259.3 cm/sec : 79.5 cm/sec : 104.6 cm/sec : 189.7 cm/sec Ao max PG PA mean PG MV mean PG Ao V2 VTI: 48.4 cm : 26.9 mmHg Ao mean PG PA Accel Time MV V2 VTI: 30.8 cm : 15.8 mmHg PA V2 mean : 48.8 cm/sec Reading Physician:06:07 PM Assessment & Plan 56-year-old male with dull ache chest pressure and intermittent sharp chest pain admitted for ACS evaluation, obesity, likely contributory sCHF. Chest pain -- Serial troponins negative -- Unremarkable lipids -- Continue atorvastatin 40 mg daily at bedtime Acute on chronic systolic CHF with a porcine aortic valve replacement, now stable to improved -- The patient's ejection fraction has decreased from 35% to 20-25% since last echocardiogram. Here however I spoke with patient's metallurgical lab technician Dr. Pantoja's partner Dr. Alanna Judd and discovered that patient had a normal cardiac cath in 2009 and that was a left and right heart catheterization. Patient also had an echocardiogram in September 2013 which showed severely decreased left ventricle systolic function with severe dilatation with an ejection fraction of 20-25% patient had a bioprosthetic aortic valve with normal function. The ascending aorta was not well seen, but may be dilated beyond the sinotubular junction. There is mild to moderate functional mitral regurgitation. There is moderate pulmonary hypertension estimated be 45-50 per 50 mmHg. The right ventricle was severely dilated with severely decreased systolic function and mild tricuspid regurgitation. These images were compared to the prior study dated 08/19/2011. The left ventricle was significantly more dilated and systolic function had decreased significantly from previous ejection fraction of 35-40%. Therefore it does not appear that the patient's cardiac function has changed much since 2013. -- Continue metoprolol as recommended by cardiology -- Continue torsemide 40 mg daily torsemide per recommendations from cardiology -- Spironolactone 25 daily per recommendations from cardiology: Held today for hypotension -- Digoxin 0.25 mg daily at noon per recommendations by cardiology. Will check digoxin level in a.m. -- Continue aspirin 81 mg daily V- tach -- Patient has had a long run of V. tach which extended to 36 beats in a row early today, and has had several short runs since. He has had repeated short runs of V. tach prior to this. -- I have discussed case with Dr. Edil Reese the metallurgical lab technician who saw the patient last week. If patient was not so heavy he certainly would be a candidate for possible coronary artery catheterization and possible AICD placement. However, Dr. Reese believes the patient is too heavy for our cardiac catheterization table. Sending the patient to an outpatient bariatric center for stress testing will likely not be helpful to this patient. I will see if there is a bariatric facility in the [facility] that could accommodate this patient for cardiac catheterization and AICD placement. The wound will need to continually closely monitor the patient for lethal arrhythmia. While on the newly started cardiac medication regimen as listed above. -- I discussed the possibility of patient receiving an implantable automatic cardiac defibrillator with Dr. Wanda Judd covering for the patient's metallurgical lab technician Dr. Perez. Dr. Judd believes that patient could be worked up for possible AICD as an outpatient. However, his runs of ventricular tachycardia appeared to be longer and may need intervention sooner. Infection workup -- Influenza screen negative -- Chest x-ray no signs of acute pulmonary processes Deconditioning -- Physical therapy to continue to eval and treat. However, patient is having pain in his right ankle from gout and pain in his left knee which is limiting his activity level. He does admit that the right ankle pain has improved some with starting colchicine. This would also interfere with him having excessive successful transition to home. -- Possible SNF placement if he cannot get accepted to a [facility] for further care. One option would be [facility]. Acute gouty attack per patient -- We will continue colchicine. As it appears to be working now. -- Continue allopurinol as before. Chronic issues known prior to admission, present on admission . Obesity hypoventilation syndrome. VDRF On 2-3L home 2. History of pneumonia. Obstructive sleep apnea, will continue on BiPAP . systolic Congestive heart failure 2010, showing an LVEF of 35% to 40% >> 25% prior to AvR porcine for AoStenosis >> EF 45% 03/2016 / . Hypertension / runs of V-tach / Chronic atrial fibrillation on Coumadin. . Coagulopathy with elevated INR and PTT, status post previous workup. Warfarin dosing per pharmacy. . Morbid obesity. . Degenerative joint disease. . History of nephrolithiasis. history of renal failure Depression -Patient was seen by Dr. 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 [place] II: None. [place] III: Obesity, degenerate joint disease, obstructive sleep apnea, hypertension. [place] IV: Severe. [place] V: Current Global Assessment of Functioning equal to 50. PLAN: Client is requesting a intermediate home. He is medically clear from a psychiatric standpoint and is on appropriate medications. Client is showing no desire to harm himself. I would encourage self-care and a transfer back to his home. Short of that, would also pursue a intermediate home facility. If client has further psychiatric issues, I am happy to consult. " Diet cardiac The patient presented with chest pain and had a full cardiac workup. The patient's troponins were negative and there were no new EKG changes. Cardiology wanted to do a cardiac stress test on the patient however we do not have a bariatric bed in order to perform cardiac stress test. So it was decided that the patient should have a stress test as an outpatient since he had been medically stable. Cardiology made recommendations to change the patient's medications and decrease his torsemide to 40 mg daily, added spironolactone 25 mg daily, digoxin 0.25 daily, atorvastatin 40 mg daily and metoprolol 12.5 mg daily. I have been told by case management that the patient no longer meets criteria for continued hospitalization and that the patient needs to be discharged home. The patient is refusing to go home as he does not feel that it is safe for him to go home. I have written a discharge order at the request of case management services. Case management has informed the patient that he will now be responsible for his bill. I have asked physical therapy to reassess the patient in the form of a home safety evaluation. Pain Evaluation: Adequate Pain Control GI Prophylaxis: Proton Pump Inhibitor VTE Prophylaxis: Other (the patient is on warfarin therapy per pharmacy) VTE Mechanical Devices: Intermittant Pneumatic CD Resuscitation Status: CPR: Attempt Resuscitation Hamilton Burger MD May 08, 2016 23:40
[2016-05-09] VITALS (7 sets, daily range): BP systolic 90–151; BP diastolic 42–96; PULSE 46–74; RESP 18–20; O2SAT 92–97
[2016-05-09 05:47] LABS: INR 2.55 ratio
[2016-05-09] MEDS: Pantoprazole 40 mg ER24 Tablet PO SCH (06:38)
--- NOTE | 2016-05-09 07:38 | PCM.PHAPRO ---
Progress Warfarin Dosing DATE May 08-May 09-Apr INR 1.92 2.22 2.55 CHANGE -0.12 0.3 0.33 DOSE 6 MG 5 MG 5 MG Ramírez Renteria May 09, 2016 07:38
[2016-05-09 09:39] LABS: BASOPHILS % (AUTO) 0.8 % (0-3); EOSINOPHILS % (AUTO) 17.1 % (0-5); MONOCYTES % (AUTO) 6.9 % (4-12); Mean Corpuscular Hemoglobin 24.3 pg (27.0-35.0); Mean Corpuscular Volume 82.8 fL (81-100); Platelet Count 176 bil/L (150-400)
[2016-05-09] MEDS: DULoxetine 30 mg DR Capsule PO SCH (10:49)
[2016-05-09] MEDS: MeTOProlol XL 25 mg ER24 Tablet PO SCH (10:50)
--- NOTE | 2016-05-09 11:50 | NUR ---
Social Work Continued DC Planning: Data & Assessment: EMR Reviewed. Patient is a 56 y/o male on his 13 day of hospitalization. Per report in daily rounds PT assessed the patient and is recommending SNF. Patient notified attending physician that he is willing to go [place] far south as [place] I a facility accepts him. SW call twelve facilities and was only able to locate four facilities that may be able to accommodate the patient. SW faxed patients referral to [facility], [facility], [facility] and [facility]. SW will continue to try and find a facility that will accept the patient. SW will follow. Plan: Currently the plan is for the patient to discharge to a SNF. Patients weight has been a barrier to finding placement. SW will continue to attempt to locate placement for the patient. SW will continue to follow. Delmis Panda, GOPI, VANIA
--- NOTE | 2016-05-09 13:35 | NUR ---
VTach senior mechanical technician called and report 6 beats of Vtach at approx 1240. This RN and hospitalist had just left pt's room. Pt asymptomatic, just waking up Hospitalist aware, no new orders.
--- NOTE | 2016-05-09 20:01 | NUR ---
VTach; [employer] reported 6 beats of V tach at 1920. Pt asymptomatic.
[2016-05-10 01:35] VITALS: BP 94/60; PULSE 46; RESP 20; O2SAT 97
--- NOTE | 2016-05-10 04:49 | NUR ---
PSYCH; pt slept most of the night after Tylenol and trazadone given. No c/o voiced of chest pain/sob. See information technology internship notes.
--- NOTE | 2016-05-10 05:55 | NUR ---
CV; at 0245 television news anchor reported heart rate in the 30's to 50's. Pt asymptomatic.
[2016-05-10] MEDS: Pantoprazole 40 mg ER24 Tablet PO SCH (06:08)
[2016-05-10 06:37] LABS: BASOPHILS % (AUTO) 0.4 % (0-3); EOSINOPHILS % (AUTO) 17.8 % (0-5); MONOCYTES % (AUTO) 8.7 % (4-12); Mean Corpuscular Hemoglobin 24.3 pg (27.0-35.0); Mean Corpuscular Volume 81.7 fL (81-100); NEUTROPHILS % (AUTO) 61.1 % (40-74); Platelet Count 165 bil/L (150-400)
[2016-05-10 06:45] VITALS: BP 107/68; PULSE 57; RESP 18; O2SAT 95
[2016-05-10 06:45] LABS: INR 2.65 ratio
[2016-05-10 08:00] VITALS: BP 98/57; PULSE 65
[2016-05-10] MEDS: DULoxetine 30 mg DR Capsule PO SCH (08:16)
[2016-05-10] MEDS: MeTOProlol XL 25 mg ER24 Tablet PO SCH (08:17)
--- NOTE | 2016-05-10 09:48 | NUR ---
Faxed referral to [facility] and [facility], also called and left message for admissions coordinator at [facility]. Needing SNF to accommodate [facility] patient. Updated RECRUITING CONSULTANT Addendum: 05/10/16 at 1149 by GENNY LANDIN CM [facility] access to [facility], [facility] and [facility] per RECRUITING CONSULTANT Customs Entry Writer. Also faxed facesheet
[2016-05-10 10:56] VITALS: PULSE 95
--- NOTE | 2016-05-10 11:34 | PCM.PHAPRO ---
Progress Warfarin Management by Pharmacy: -Indication: afib, bioprosthetic aortic valve -Home dose: warfarin 4mg -Goal: Inr 2-3 -Plan: Inr today is 2.65. will continue with home dose of warfarin 4mg this evening Jackie Theodore [facility] May 10, 2016 11:34
[2016-05-10 14:21] VITALS: BP 121/74; PULSE 48; RESP 18; O2SAT 98
--- NOTE | 2016-05-10 15:03 | NUR ---
Arranged Yellow Cab Van for this patient per LANE ATTENDANT and LANE ATTENDANT Fixture Maker, this is taking the patient home and is being paid for by our department per LANE ATTENDANT supervisor stitching department.
--- NOTE | 2016-05-10 15:31 | NUR ---
Social Work: Readiness for Discharge: Data & Assessment: SW and CM consulted with MD in reference to patient's discharge. Physician stated that he was discharging the patient. Physician spoke with patient at bedside and notified him that h was discharging. SW and CW met with patient at bedside and notified him that discharge was ordered and that he wound discharge today because he is medically stable and back at his baseline. Patient stated that he was resisting discharge and that he would refuse to leave. SW notified [facility] that patient was discharging. SW also notified patient's [facility] older adult social work specialist, Elly [phone], who is following for caregiver assignment. No other anticipated discharge needs at this time. PLAN: Home with [facility] via [facility] (Access provided) and [facility] to follow. Delmis Panda, GOPI, ACM
--- NOTE | 2016-05-10 16:19 | NUR ---
Discharge process Pt met w/ hospitalist and discussed d/c. Pt resistant to d/c but he is back to his baseline and is medically stable. After hospitalist left room, SW and CM entered room to discuss d/c and that taxi was set up for him to go home. Pt states he will resist d/c. Pt noticed that RN would be in to help him pack up his belongings and review d/c. This RN and shift APPLICATION INTEGRATOR entered pt's room to pack up belongings. Pt states he isn't going anywhere. Showed pt his medication list and that I had written next dose due time as well as highlighted numbers for him to call to schedule his bariatric stress test. Pt refused to sign d/c paperwork but answers questions about home set up, SAHIL witnessed for this RN. Security at bedside to assist w/ d/c. All belongings packed up for patient. Pt states that he is on phone w/ police for assistance. Oxygen for travel home set up and on 3L via [place] (baseline at home). Request that patient assist w/ getting OOB to w/c for d/c home and he refuses to acknowledge or answer questions. Security in room. attempted to assist pt to a sitting position, pt not helpful. Police notified by security for assistance w/ discharge process. Awaiting their arrival. Addendum: 05/10/16 at 1801 by TAYA OLIVER RN Pt left via yellow [employer] at approx [phone]. Security and this RN remained w/ patient until cab arrived. while waiting I reassured pt and encouraged him to call [facility] tomorrow for stress test (numbers highlighted on his discharge paperwork) and to follow up w/ [facility] and that [facility] would be out to help him. I also talked to him about [facility] for medical support at home if he has an emergency. Spoke to cable puller, she will get pt's walker for him when they get to his house.
--- NOTE | 2016-05-10 16:31 | NUR ---
today patient told me that this was like a resort ,I agreed and said its even better because he gets three meals served to him . I was thing he was joking but he was serious.
--- NOTE | 2016-05-10 23:30 | PCM.PNMED ---
Subjective Date of Service May 10, 2016 Subjective The patient continues to be exhausted with any physical activity. His right ankle is feeling better on colchicine. He has no other new complaints. He has no chest pain, no shortness of breath. Exam Vital Signs Vital Sign - Last Date Time Temp Pulse Resp B/P Pulse Ox O2 Delivery O2 Flow Rate FiO2 05/10/16 14:21 36.7 48 18 121/74 98 Nasal Cannula 4.00 Intake and Output 05/09/16 05/09/16 05/10/16 Cumulative From/Thru 15:00 23:00 07:00 04/26/16 14:49 - 05/10/16 06:55 Intake Total 850 ml 1200 ml 440 ml 52784 ml Output Total 525 ml 800 ml 1225 ml 22378 ml Balance 325 ml 400 ml -785 ml 6580 ml Intake Oral 850 ml 1200 ml 440 ml 21908 ml IV Total 1020 ml Output Urine Total 525 ml 800 ml 1225 ml 15600 ml # Voids 9 # Bowel Movements 1 8 Exam General: Patient is in no apparent distress when I entered the room he was sitting on the side of the bed again today. He appears more comfortable and was more talkative. HEENT: Head is atraumatic normocephalic. Eyes: Pupils are equally round and reactive to light and accommodation. Extraocular muscles are intact. Sclera are white anicteric. Subconjunctival mucosa is pink. Ears and nose are unremarkable. Oropharynx: There is no mucosal lesions, there is no thrush, there is no pharyngitis. Neck: Is supple, there are no nodes, or masses, or tenderness appreciated. Chest: Is clear to auscultation and percussion. There are no rales, rhonchi, wheezes or rubs appreciated. However, breath sounds are distant. Heart: Rate, rhythm is regular. There is no murmur, rub or gallop. However, heart tones are distant. Abdomen: Good bowel sounds are present. Abdomen is morbidly obese with a very large pannus.the abdomen is otherwise soft, nontender, no organomegaly or masses could be appreciated. Extremities: Are symmetrical and well perfused. There is 1+ pitting edema symmetrical of both lower extremities, there is no cellulitis, no rash. The right ankle shows no evidence of significant rubor, or calor, or dolor. Pain and tenderness is subjective. Neurologic: There are no focal neurological deficits. Cranial nerves II through XII are intact. There are no sensory or motor deficits. Psychiatric: Patients mood is calm and shows no sign of agitation. Genital: Deferred Rectal: Deferred Lab and Diagnostics Result Diagram: 05/10/16 [id number] Microbiology Name: MASTER FREEMAN Age/Sex: 56/M Attend Dr: Zaki Graves MD Acct: [id number] Unit: [id number] Status: ADM [place] [facility] [place]1 Re04/26/16 Disch: Specimen: [id number] Collected: 04/28/16 Status: COMP Req#: [id number] Received: 04/28/16 Source: JEAN Sp Desc : Subm Dr: Roxanne Pantoja MD Ordered: RAPID FLU IRS Comments: Collected by Nurse/Unit? Y/N Y Procedure Result Verified Site Microbiology [facility] INFLUENZA RAPID AG SCREEN Final 04/28/16-2246 RESULT NEGATIVE FOR INFLUENZA TYPE A AND B This rapid assay is a screen test only for Influenza A&B and does not definitively rule out the presence of FLU A & B or other respiratory viral pathogens. The assay's sensitivity varies on the specimen type submitted. Nasal washes are optimum. Recommend respiratory viral cultures and DFA to confirm negative screens and rule out other viral pathogens. Per CDC, the sensitivity of this method is approximately 50% for H1N1. A negative result does NOT rule out Novel H1N1 (Swine Flu) X-Rays, CTs and MRIs PROCEDURE: X-RAY CHEST, TWO VIEWS ([id number]) INDICATIONS: dyspnea TECHNIQUE: 2 views of the chest were acquired. COMPARISON: [facility], CR, XR CHEST 1VW (PORTABLE), 04/26/2016, 14: 49. [facility], CR, XR CHEST 1VW (PORTABLE), 04/17/2016, 20:00. [facility], CR, XR CHEST 1VW (PORTABLE), 03/20/2016, 5:25. [facility], CR, XR CHEST 1VW (PORTABLE), 03/18/2016, 11:32. [facility], CR, XR CHEST 2VW, 03/16/2016, 13:47. FINDINGS: Surgical changes and devices: Median sternotomy clips. Lungs and pleura: No pleural effusions or pneumothorax. There is prominence of the pulmonary vasculature and mild, diffuse bilateral interstitial densities are present. Mediastinum: Mediastinal contours are normal. Heart size is enlarged as before. Bones and chest wall: No suspicious bony abnormalities. Soft tissues appear unremarkable. IMPRESSION: No new suspicious for chronic CHF. Correlate clinically. Dictated by: Manny BARNETT Interpreted: Linnea Mobley MD on 04/29/2016 at 16:56 Transcribed by: NICOLÁS on 04/29/2016 at 16:56 Cardiac Echo Impressions Name: MASTER FREEMAN ate: 04/27/2016 Height: 72 in Hospital Exam Location: [facility] Weight: 498 lb Gender: Male BSA: 3.1 m2 : 1960 Age: 56 yrs BP: 96/68 m mHg Reason For Study: Congestive Heart Failure History: AVR-porcine Ordering Physician: HOSPITALIST [facility] Performed By: Arabella Campbell Referring Physician: Dr. Alexander Bruno Interpretation Summary Limited Echo to assess LV function: Echo poor quality due to body habitus. 1) Grossly, LV function estimated at 25-30%. Wall motion difficult to assess due to limited visualization. 2) No pericardial effusion present. 3) Compared to the Echo done 03/17/2016, LVEF appears lower on today's study. I think EF on prior study is closer to 35% on my assessment. Procedure: A two-dimensional transthoracic echocardiogram with color flow and Doppler was performed. The study quality was technically difficult. Comparison is made with the echocardiogram of 03/17/2016. A contrast injection of Definity was performed to improve assessment of LV function. No complications with contrast. The patient was in atrial fibrillation with heart rates between 65-85 bpm during the exam. Left Ventricle: The left ventricle is markedly dilated. Left ventricular wall thickness is borderline increased. The ejection fraction is estimated to be 25-30%. Regional wall motion abnormalities cannot be excluded due to limited visualization. Diastolic function could not be accurately assessed due to unobtainable data. Right Ventricle: The right ventricle is not well visualized. Atria: The left atrium is not well visualized. Right atrium not well visualized. Mitral Valve: The mitral valve is grossly normal. There is at least trace mitral regurgitation. Aortic Valve: There is a porcine aortic valve. The prosthetic aortic valve is not well visualized. Tricuspid Valve: The tricuspid valve is not well visualized. Pulmonary artery pressures cannot be estimated because of the lack of a measurable TR jet velocity. Pulmonic Valve: The pulmonic valve is not well visualized. There is mild pulmonic regurgitation. Pericardium/ Pleura There is no pericardial effusion. MMode/2D Measurements & Calculations LVIDd LV martinez. diameter/BSA (cm/m^2) LV sys. diameter/BSA (cm/m^2) : 7.9 cm LVIDs : 7.1 cm FS: 10.0 % IVSd : 0.9cm LVPWd : 1.1 cm Doppler Measurements & Calculations Ao V2 max PA V2 max MV V2 mean Ao V2 mean : 259.3 cm/sec : 79.5 cm/sec : 104.6 cm/sec : 189.7 cm/sec Ao max PG PA mean PG MV mean PG Ao V2 VTI: 48.4 cm : 26.9 mmHg Ao mean PG PA Accel Time MV V2 VTI: 30.8 cm : 15.8 mmHg PA V2 mean : 48.8 cm/sec Reading Physician:06:07 PM Assessment & Plan 56-year-old male with dull ache chest pressure and intermittent sharp chest pain admitted for ACS evaluation, obesity, likely contributory sCHF. Chest pain -- Serial troponins negative -- Unremarkable lipids -- Continue atorvastatin 40 mg daily at bedtime Acute on chronic systolic CHF with a porcine aortic valve replacement, now stable to improved -- The patient's ejection fraction has decreased from 35% to 20-25% since last echocardiogram. Here however I spoke with patient's barrel raiser helper Dr. Pantoja's partner Dr. Alanna Judd and discovered that patient had a normal cardiac cath in 2009 and that was a left and right heart catheterization. Patient also had an echocardiogram in September 2013 which showed severely decreased left ventricle systolic function with severe dilatation with an ejection fraction of 20-25% patient had a bioprosthetic aortic valve with normal function. The ascending aorta was not well seen, but may be dilated beyond the sinotubular junction. There is mild to moderate functional mitral regurgitation. There is moderate pulmonary hypertension estimated be 45-50 per 50 mmHg. The right ventricle was severely dilated with severely decreased systolic function and mild tricuspid regurgitation. These images were compared to the prior study dated 08/19/2011. The left ventricle was significantly more dilated and systolic function had decreased significantly from previous ejection fraction of 35-40%. Therefore it does not appear that the patient's cardiac function has changed much since 2013. -- Continue metoprolol as recommended by cardiology -- Continue torsemide 40 mg daily torsemide per recommendations from cardiology -- Spironolactone 25 daily per recommendations from cardiology: Held today for hypotension -- Digoxin 0.25 mg daily at noon per recommendations by cardiology. Will check digoxin level in a.m. -- Continue aspirin 81 mg daily V- tach -- Patient has had a long run of V. tach which extended to 36 beats in a row early today, and has had several short runs since. He has had repeated short runs of V. tach prior to this. -- I have discussed case with Dr. Edil Reese the barrel raiser helper who saw the patient last week. If patient was not so heavy he certainly would be a candidate for possible coronary artery catheterization and possible AICD placement. However, Dr. Reese believes the patient is too heavy for our cardiac catheterization table. Sending the patient to an outpatient bariatric center for stress testing will likely not be helpful to this patient. I will see if there is a bariatric facility in the [place] area that could accommodate this patient for cardiac catheterization and AICD placement. The wound will need to continually closely monitor the patient for lethal arrhythmia. While on the newly started cardiac medication regimen as listed above. -- I discussed the possibility of patient receiving an implantable automatic cardiac defibrillator with Dr. Wanda Judd covering for the patient's barrel raiser helper Dr. Perez. Dr. Judd believes that patient could be worked up for possible AICD as an outpatient. However, his runs of ventricular tachycardia appeared to be longer and may need intervention sooner. Infection workup -- Influenza screen negative -- Chest x-ray no signs of acute pulmonary processes Deconditioning -- Physical therapy to continue to eval and treat. However, patient is having pain in his right ankle from gout and pain in his left knee which is limiting his activity level. He does admit that the right ankle pain has improved some with starting colchicine. This would also interfere with him having excessive successful transition to home. -- Possible SNF placement if he cannot get accepted to a [facility] for further care. One option would be [place] [facility]. Acute gouty attack per patient -- We will continue colchicine. As it appears to be working now. -- Continue allopurinol as before. Chronic issues known prior to admission, present on admission . Obesity hypoventilation syndrome. VDRF On 2-3L home 2. History of pneumonia. Obstructive sleep apnea, will continue on BiPAP . systolic Congestive heart failure 2010, showing an LVEF of 35% to 40% >> 25% prior to AvR porcine for AoStenosis >> EF 45% 03/2016 / . Hypertension / runs of V-tach / Chronic atrial fibrillation on Coumadin. . Coagulopathy with elevated INR and PTT, status post previous workup. Warfarin dosing per pharmacy. . Morbid obesity. . Degenerative joint disease. . History of nephrolithiasis. history of renal failure Depression -Patient was seen by Dr. 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 [place] II: None. [place] III: Obesity, degenerate joint disease, obstructive sleep apnea, hypertension. [place] IV: Severe. [place] V: Current Global Assessment of Functioning equal to 50. PLAN: Client is requesting a senior living home. He is medically clear from a psychiatric standpoint and is on appropriate medications. Client is showing no desire to harm himself. I would encourage self-care and a transfer back to his home. Short of that, would also pursue a senior living home facility. If client has further psychiatric issues, I am happy to consult. " Diet cardiac The patient presented with chest pain and had a full cardiac workup. The patient's troponins were negative and there were no new EKG changes. Cardiology wanted to do a cardiac stress test on the patient however we do not have a bariatric bed in order to perform cardiac stress test. So it was decided that the patient should have a stress test as an outpatient since he had been medically stable. Cardiology made recommendations to change the patient's medications and decrease his torsemide to 40 mg daily, added spironolactone 25 mg daily, digoxin 0.25 daily, atorvastatin 40 mg daily and metoprolol 12.5 mg daily. I have been told by case management that the patient no longer meets criteria for continued hospitalization and that the patient needs to be discharged home. The patient is refusing to go home as he does not feel that it is safe for him to go home. I have written a discharge order at the request of case management services. Case management has informed the patient that he will now be responsible for his bill. I have asked physical therapy to reassess the patient in the form of a home safety evaluation. Pain Evaluation: Adequate Pain Control GI Prophylaxis: Proton Pump Inhibitor VTE Prophylaxis: Other (the patient is on warfarin therapy per pharmacy) VTE Mechanical Devices: Intermittant Pneumatic CD Resuscitation Status: CPR: Attempt Resuscitation Hamilton Burger MD May 10, 2016 23:30
--- NOTE | 2016-05-10 23:38 | PCM.DC.MED ---
Discharge Summary Date of Service May 10, 2016 Dates of Hospitalization Date of Hospital Admission Apr 26, 2016 at 17:51 Date of Discharge: May 10, 2016 Providers: Admitting Physician: Remigio Graves MD Primary Care Physician: Maya Bruno MD Attending Physician: Remigio Graves MD Diagnosis at Time of Discharge Diagnosis at Time of Discharge Acute CHF Hypertension Chronic atrial fibrillation currently on Coumadin Consultations Patient was seen by cardiology who made the following recommendations. This is a 56 year old gentleman with morbid obesity, long-standing dilated nonischemic cardiomyopathy since 2009 with LV EF of 25-30%, CHF, history of aortic valve stenosis likely from the bicuspid aortic valve, status post bioprosthetic aortic valve replacement done on 07/2011 later complicated with DVT and PE found to have evidence of lupus anticoagulant and was started on warfarin, has history of chronic atrial fibrillation since 2012, history of recurrent non-sustained monomorphic ventricular tachycardia for several years, history of severe sleep apnea uses BiPAP machine, history of hypoventilation syndrome, severe chronic hypoxemia, history of some noncompliance who currently does not follow up with care manager cna and who on 04/26/2016 was admitted to [facility] with atypical chest pain and worsening YEE and with negative troponins and no acute changes on EKG. # Chest pain - chest pain he describes is atypical and has a pleuritic features ; taking in mind the quality of chest pain and that he has been having this chest pain on and off constantly since 04/23/2016 and that his troponins has been negative, doubt that he has ACS. During the encounter today the patient had again chest pressure and EKG was done which showed atrial fibrillation rate controlled without ischemic changes. # Dilated cardiomyopathy - per medical records is considered nonischemic because patient had cardiac catheterization in the past at some point which reportedly did not show significant coronary artery disease. It is very hard to assess his volume status because of his morbid obesity, but the patient is able to lay down flat in the bed currently which is reassuring and speaks for likely adequate volume status currently. The patient would benefit from ICD for primary prevention which was suggested in the past and never happened likely from patients not following up with cardiology. The case was discussed with [employer] Teacher Dr. Reese who also spoke and examined the patient. Would recommend : - to stop Furosemide iv - Start Torsemide 40 mg PO (as outpatient he was taking Torsemide 100 mg daily) - Will also start him on Spironolactone 25 mg daily and will stop Potassium supplements. - To help his cardiac function, will start him on Digoxin 0.25 mg daily - Will start him on Metoprolol succinate 12.5 mg daily which would be beneficial for his Cardiomyopathy and episodes of nonsustained ventricular tachycardia. It can be uptitrated later depending on BP. - At this point there is no room for BP to start him on Lisinopril which could be considered down the road. Procedures XRay, CTs & MRIs PROCEDURE: X-RAY CHEST, TWO VIEWS ([id number]) INDICATIONS: dyspnea TECHNIQUE: 2 views of the chest were acquired. COMPARISON: [facility], CR, XR CHEST 1VW (PORTABLE), 04/26/2016, 14: 49. [facility], CR, XR CHEST 1VW (PORTABLE), 04/17/2016, 20:00. [facility], CR, XR CHEST 1VW (PORTABLE), 03/20/2016, 5:25. [facility], CR, XR CHEST 1VW (PORTABLE), 03/18/2016, 11:32. [facility], CR, XR CHEST 2VW, 03/16/2016, 13:47. FINDINGS: Surgical changes and devices: Median sternotomy clips. Lungs and pleura: No pleural effusions or pneumothorax. There is prominence of the pulmonary vasculature and mild, diffuse bilateral interstitial densities are present. Mediastinum: Mediastinal contours are normal. Heart size is enlarged as before. Bones and chest wall: No suspicious bony abnormalities. Soft tissues appear unremarkable. IMPRESSION: No new suspicious for chronic CHF. Correlate clinically. Dictated by: Manny BARNETT Interpreted: Linnea Mobley MD on 04/29/2016 at 16:56 Transcribed by: NICOLÁS on 04/29/2016 at 16:56 Cardiac Echo Impression Name: MASTER FREEMAN Eliy Kasi ate: 04/27/2016 Height: 72 in Hospital Exam Location: [facility] Weight: 498 lb Gender: Male BSA: 3.1 m2 : 1960 Age: 56 yrs BP: 96/68 m mHg Reason For Study: Congestive Heart Failure History: AVR-porcine Ordering Physician: HOSPITALIST ILSA Performed By: Arabella Campbell Referring Physician: Dr. Alexander Bruno Interpretation Summary Limited Echo to assess LV function: Echo poor quality due to body habitus. 1) Grossly, LV function estimated at 25-30%. Wall motion difficult to assess due to limited visualization. 2) No pericardial effusion present. 3) Compared to the Echo done 03/17/2016, LVEF appears lower on today's study. I think EF on prior study is closer to 35% on my assessment. Procedure: A two-dimensional transthoracic echocardiogram with color flow and Doppler was performed. The study quality was technically difficult. Comparison is made with the echocardiogram of 03/17/2016. A contrast injection of Definity was performed to improve assessment of LV function. No complications with contrast. The patient was in atrial fibrillation with heart rates between 65-85 bpm during the exam. Left Ventricle: The left ventricle is markedly dilated. Left ventricular wall thickness is borderline increased. The ejection fraction is estimated to be 25-30%. Regional wall motion abnormalities cannot be excluded due to limited visualization. Diastolic function could not be accurately assessed due to unobtainable data. Right Ventricle: The right ventricle is not well visualized. Atria: The left atrium is not well visualized. Right atrium not well visualized. Mitral Valve: The mitral valve is grossly normal. There is at least trace mitral regurgitation. Aortic Valve: There is a porcine aortic valve. The prosthetic aortic valve is not well visualized. Tricuspid Valve: The tricuspid valve is not well visualized. Pulmonary artery pressures cannot be estimated because of the lack of a measurable TR jet velocity. Pulmonic Valve: The pulmonic valve is not well visualized. There is mild pulmonic regurgitation. Pericardium/ Pleura There is no pericardial effusion. MMode/2D Measurements & Calculations LVIDd LV martinez. diameter/BSA (cm/m^2) LV sys. diameter/BSA (cm/m^2) : 7.9 cm LVIDs : 7.1 cm FS: 10.0 % IVSd : 0.9cm LVPWd : 1.1 cm Doppler Measurements & Calculations Ao V2 max PA V2 max MV V2 mean Ao V2 mean : 259.3 cm/sec : 79.5 cm/sec : 104.6 cm/sec : 189.7 cm/sec Ao max PG PA mean PG MV mean PG Ao V2 VTI: 48.4 cm : 26.9 mmHg Ao mean PG PA Accel Time MV V2 VTI: 30.8 cm : 15.8 mmHg PA V2 mean : 48.8 cm/sec Reading Physician:06:07 PM Brief History This is a very pleasant 56 year old gentleman with morbid obesity, long- standing dilated nonischemic cardiomyopathy since 2009 with LV EF of 25-30%, CHF , history of aortic valve stenosis likely from the bicuspid aortic valve, status post bioprosthetic aortic valve replacement done on 07/2011 later complicated with DVT and PE found to have evidence of lupus anticoagulant and was started on warfarin, has history of chronic atrial fibrillation since 2012, history of recurrent non-sustained monomorphic ventricular tachycardia for several years, history of severe sleep apnea uses BiPAP machine, history of hypoventilation syndrome, severe chronic hypoxemia; history of some noncompliance; currently does not have care manager cna. The patient states that starting from last Tuesday he has been experiencing on and off chest pressure in the middle of his chest and under his left breast sometimes radiating to left arm; chest pressure was aggravated with deep breathing and movement and left arm movement. He was getting this chest pressure only when he was sitting. His physical activity is very limited and he uses walker or wheelchair. He also periodically felt nauseous and clammy and felt palpitations and felt a little lightheaded. Also noticed worsening dyspnea on exertion and decided to come to ER. In March 2016 he had pneumonia and since discharge he has been using oxygen /. He has past history of using tobacco, states that he does not smoke anymore, denies using alcohol, or recreational drug use. Denies family history of coronary artery disease. The patient was admitted to the hospital service for further evaluation treatment. Hospital Course 56-year-old male with dull ache chest pressure and intermittent sharp chest pain admitted for ACS evaluation, obesity, likely contributory sCHF. Chest pain -- Serial troponins negative -- Unremarkable lipids -- Continue atorvastatin 40 mg daily at bedtime Acute on chronic systolic CHF with a porcine aortic valve replacement, now stable to improved -- The patient's ejection fraction has decreased from 35% to 20-25% since last echocardiogram. Here however I spoke with patient's care manager cna Dr. Pantoja's partner Dr. Alanna Judd and discovered that patient had a normal cardiac cath in 2009 and that was a left and right heart catheterization. Patient also had an echocardiogram in September 2013 which showed severely decreased left ventricle systolic function with severe dilatation with an ejection fraction of 20-25% patient had a bioprosthetic aortic valve with normal function. The ascending aorta was not well seen, but may be dilated beyond the sinotubular junction. There is mild to moderate functional mitral regurgitation. There is moderate pulmonary hypertension estimated be 45-50 per 50 mmHg. The right ventricle was severely dilated with severely decreased systolic function and mild tricuspid regurgitation. These images were compared to the prior study dated 08/19/2011. The left ventricle was significantly more dilated and systolic function had decreased significantly from previous ejection fraction of 35-40%. Therefore it does not appear that the patient's cardiac function has changed much since 2013. -- Continue metoprolol as recommended by cardiology -- Continue torsemide 40 mg daily torsemide per recommendations from cardiology -- Spironolactone 25 daily per recommendations from cardiology: Held today for hypotension -- Digoxin 0.25 mg daily at noon per recommendations by cardiology. Will check digoxin level in a.m. -- Continue aspirin 81 mg daily V- tach -- Patient has had a long run of V. tach which extended to 36 beats in a row early today, and has had several short runs since. He has had repeated short runs of V. tach prior to this. -- I have discussed case with Dr. Edil Reese the care manager cna who saw the patient last week. If patient was not so heavy he certainly would be a candidate for possible coronary artery catheterization and possible AICD placement. However, Dr. Reese believes the patient is too heavy for our cardiac catheterization table. Sending the patient to an outpatient bariatric center for stress testing will likely not be helpful to this patient. I will see if there is a bariatric facility in the [facility] that could accommodate this patient for cardiac catheterization and AICD placement. The wound will need to continually closely monitor the patient for lethal arrhythmia. While on the newly started cardiac medication regimen as listed above. -- I discussed the possibility of patient receiving an implantable automatic cardiac defibrillator with Dr. Wanda Judd covering for the patient's care manager cna Dr. Perez. Dr. Judd believes that patient could be worked up for possible AICD as an outpatient. However, his runs of ventricular tachycardia appeared to be longer and may need intervention sooner. Infection workup -- Influenza screen negative -- Chest x-ray no signs of acute pulmonary processes Deconditioning -- Physical therapy to continue to eval and treat. However, patient is having pain in his right ankle from gout and pain in his left knee which is limiting his activity level. He does admit that the right ankle pain has improved some with starting colchicine. This would also interfere with him having excessive successful transition to home. -- Possible SNF placement if he cannot get accepted to a [facility] hospital for further care. One option would be [place] [facility]. Acute gouty attack per patient -- We will continue colchicine. As it appears to be working now. -- Continue allopurinol as before. Chronic issues known prior to admission, present on admission . Obesity hypoventilation syndrome. VDRF On 2-3L home 2. History of pneumonia. Obstructive sleep apnea, will continue on BiPAP . systolic Congestive heart failure 2010, showing an LVEF of 35% to 40% >> 25% prior to AvR porcine for AoStenosis >> EF 45% 03/2016 / . Hypertension / runs of V-tach / Chronic atrial fibrillation on Coumadin. . Coagulopathy with elevated INR and PTT, status post previous workup. Warfarin dosing per pharmacy. . Morbid obesity. . Degenerative joint disease. . History of nephrolithiasis. history of renal failure Depression -Patient was seen by Dr. 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 Austin II: None. Austin III: Obesity, degenerate joint disease, obstructive sleep apnea, hypertension. Austin IV: Severe. Austin V: Current Global Assessment of Functioning equal to 50. PLAN: Client is requesting a chcf home. He is medically clear from a psychiatric standpoint and is on appropriate medications. Client is showing no desire to harm himself. I would encourage self-care and a transfer back to his home. Short of that, would also pursue a chcf home facility. If client has further psychiatric issues, I am happy to consult. " Diet cardiac The patient presented with chest pain and had a full cardiac workup. The patient's troponins were negative and there were no new EKG changes. Cardiology wanted to do a cardiac stress test on the patient however we do not have a bariatric bed in order to perform cardiac stress test. So it was decided that the patient should have a stress test as an outpatient since he had been medically stable. Cardiology made recommendations to change the patient's medications and decrease his torsemide to 40 mg daily, added spironolactone 25 mg daily, digoxin 0.25 daily, atorvastatin 40 mg daily and metoprolol 12.5 mg daily. I have been told by case management that the patient no longer meets criteria for continued hospitalization and that the patient needs to be discharged home. The patient is refusing to go home as he does not feel that it is safe for him to go home. I have written a discharge order at the request of case management services. Case management has informed the patient that he will now be responsible for his bill. I have asked physical therapy to reassess the patient in the form of a home safety evaluation. Today the day of discharge. The physical therapy department stated that the patient was "at his baseline". Exam Vital Signs (Last) Date Time Temp Pulse Resp B/P Pulse Ox O2 Delivery O2 Flow Rate FiO2 05/10/16 14:21 36.7 48 18 121/74 98 Nasal Cannula 4.00 Exam General: Patient is in no apparent distress when I entered the room he was laying in bed with his CPAP on. He states that he was exhausted from taking a shower.. HEENT: Head is atraumatic normocephalic. Eyes: Pupils are equally round and reactive to light and accommodation. Extraocular muscles are intact. Sclera are white anicteric. Subconjunctival mucosa is pink. Ears and nose are unremarkable. Oropharynx: There is no mucosal lesions, there is no thrush, there is no pharyngitis. Neck: Is supple, there are no nodes, or masses, or tenderness appreciated. Chest: Is clear to auscultation and percussion. There are no rales, rhonchi, wheezes or rubs appreciated. However, breath sounds are distant. Heart: Rate, rhythm is regular. There is no murmur, rub or gallop. However, heart tones are distant. Abdomen: Good bowel sounds are present. Abdomen is morbidly obese with a very large pannus.the abdomen is otherwise soft, nontender, no organomegaly or masses could be appreciated. Extremities: Are symmetrical and well perfused. There is 1+ pitting edema symmetrical of both lower extremities, there is no cellulitis, no rash. The right ankle shows no evidence of significant rubor, or calor, or dolor. Pain and tenderness is subjective. Neurologic: There are no focal neurological deficits. Cranial nerves II through XII are intact. There are no sensory or motor deficits. Psychiatric: Patients mood is calm and shows no sign of agitation. Genital: Deferred Rectal: Deferred Test 04/26/16 15:01 04/26/16 23:13 04/27/16 05:42 05/05/16 05:38 D-Dimer < 0.5mg/L FEU (<0.50) Hold Urine Received (Received) Troponin T < 0.010ug/L (0.0-0.011) Triglycerides Level 95mg/dL (0-149) Cholesterol Level 94mg/dL (100-199) LDL Cholesterol, Calculated 48.000mg/dL (0-99) VLDL Cholesterol 19.000mg/dL HDL Cholesterol 27mg/dL (>39) Cholesterol/HDL Ratio 3.48 (0.0-4.4) Uric Acid 6.8mg/dL (2.6-7.2) Test 05/06/16 06:13 05/07/16 06:05 05/08/16 05:55 05/10/16 06:00 Band Neutrophils % 2% (1-5) Metamyelocytes % 1% (0-0) Digoxin Level 0.8nG/mL (0.9-2.0) Phosphorus Level 3.8mg/dL (2.5-4.9) White Blood Count 4.5th/mm3 (3.8-10.1) Red Blood Count 4.20mil/mm3 (4.40-5.80) Hemoglobin 10.2g/dL (13.8-17.2) Hematocrit 34.3% (41.0-50.0) Mean Corpuscular Volume 81.7fL (81-100) Mean Corpuscular Hemoglobin 24.3pg (27.0-35.0) Mean Corpuscular Hemoglobin Concent 29.7% (32.0-37.0) Red Cell Distribution Width 16.5% (12.3-15.4) Platelet Count 165bil/L (150-400) Neutrophils (%) (Auto) 61.1% (40-74) Lymphocytes (%) (Auto) 11.1% (14-46) Monocytes (%) (Auto) 8.7% (4-12) Eosinophils (%) (Auto) 17.8% (0-5) Basophils (%) (Auto) 0.4% (0-3) Prothrombin Time 28.9sec (8.1-12.5) Prothromb Time International Ratio 2.65ratio Sodium Level 142mEq/L (134-144) Potassium Level 4.6mEq/L (3.5-5.2) Chloride Level 99mEq/L (97-108) Carbon Dioxide Level 30mmol/L (18-29) Blood Urea Nitrogen 14mg/dL (6-24) Creatinine 1.25mg/dL (0.76-1.27) Estimat Glomerular Filtration Rate 64mL/min (>59) Glucose Level 92mg/dL (60-99) Calcium Level 8.5mg/dL (8.5-10.1) Magnesium Level 2.0mg/dL (1.6-2.6) Total Bilirubin 0.5mg/dL (0.0-1.2) Aspartate Amino Transf (AST/SGOT) 9U/L (0-50) Alanine Aminotransferase (ALT/SGPT) 6U/L (0-44) Alkaline Phosphatase 93U/L (25-150) Pro-B-Type Natriuretic Peptide 3638pg/mL (0-121) Total Protein 6.3g/dL (6.4-8.4) Albumin 3.4g/dL (3.4-5.0) Microbiology Results Name: MASTER FREEMAN Age/Sex: 56/M Attend Dr: Zaki Graves MD Acct: [id number] Unit: [id number] Status: ADM [place] [facility] [place]04[place]26[place] Disch: Specimen: [id number] Collected: 04/28/16 Status: COMP Req#: [id number] Received: 04/28/16 Source: NSP Sp Desc : Subm Dr: Roxanne Pantoja MD Ordered: RAPID FLU IRS Comments: Collected by Nurse/Unit? Y/N Y Procedure Result Verified Site Microbiology JEREMY INFLUENZA RAPID AG SCREEN Final 01/18/17-2246 RESULT NEGATIVE FOR INFLUENZA TYPE A AND B This rapid assay is a screen test only for Influenza A&B and does not definitively rule out the presence of FLU A & B or other respiratory viral pathogens. The assay's sensitivity varies on the specimen type submitted. Nasal washes are optimum. Recommend respiratory viral cultures and DFA to confirm negative screens and rule out other viral pathogens. Per CDC, the sensitivity of this method is approximately 50% for H1N1. A negative result does NOT rule out Novel H1N1 (Swine Flu) Discharge Medications Discharge Medications Allopurinol (Allopurinol) 300 Mg Tablet 300 MG PO DAILY (Reported) Aspirin Chew (Aspirin Chew) 81 Mg Chew 81 MG PO DAILY Prescribed by: ROMMEL ORDOÑEZ DO Atorvastatin Calcium (Atorvastatin Calcium) 40 Mg Tablet 40 MG PO HS Prescribed by: ROMMEL ORDOÑEZ DO Colchicine (Colcrys) 0.6 Mg Tablet 0.6 MG PO BID Prescribed by: VALERIA SANTOYO MD Digoxin (Digoxin) 250 Mcg Tablet 0.25 MG PO DAILY@12 Prescribed by: ROMMEL ORDOÑEZ DO Duloxetine (Duloxetine) 30 Mg Capsule.dr 60 MG PO DAILY (Reported) Metoprolol Succinate ER (Metoprolol Succinate ER) 25 Mg Tab.er.24h 12.5 MG PO DAILY Prescribed by: ROMMEL ORDOÑEZ DO Potassium Chloride (Potassium Chloride) 20 Meq Tab.er.prt 40 MEQ PO DAILY ( Reported) Spironolactone (Aldactone) 25 Mg Tablet 25 MG PO DAILY Prescribed by: ROMMEL ORDOÑEZ DO Torsemide (Torsemide) 100 Mg Tablet 100 MG PO DAILY (Reported) Torsemide (Demadex) 20 Mg Tablet 40 MG PO DAILY Prescribed by: ROMMEL ORDOÑEZ DO Warfarin Sodium (Warfarin Sodium) 4 Mg Tablet 4 MG PO DAILY (Reported) As needed Melatonin (Melatonin) 1 Mg Tablet 1 MG PO HS PRN PRN Insomnia Prescribed by: VALERIA SANTOYO MD Nitroglycerin SL (Nitrostat) 0.4 Mg Tab.subl 0.4 MG SL Q5MIN PRN PRN For Chest Pain Prescribed by: ROMMEL ORDOÑEZ DO Trazodone (Trazodone) 50 Mg Tablet 50-300 MG PO HS PRN PRN For Sleep (Reported) Followup Plan Disposition: The patient is being discharged home Follow-up plan The patient should call [facility] with Dr.Devorah Paz [phone] or [facility] [place] with either Dr. Zayda Camara or Dr. Mauricio Mesa [phone]. To schedule appointment for a cardiac stress test only 2 places locally who did cardiac stress test for bariatric patients. Discharge Diet: Heart Healthy, Diabetic Discharge Activity: Other (gradually return to normal activities as tolerated) Patient Instructions Please call your PCP and care manager cna to make a follow-up appointment. Home health services will be in to check on the patient. [facility] services have also been awarded however a caregiver has not been found at this time. Once a caregiver has been found then he will continue to follow-up with [facility]. It is recommended that you have a cardiac stress which should be performed at a bariatric center. Either at [facility] with Dr.Devorah Paz [phone] or [facility] [place] with either Dr. Zayda Camara or Dr. Mauricio Mesa [phone]. Please call to make an appointment. Please continue to follow up with her PCP for Coumadin clinic in regards to your daily Coumadin usage. Follow-up Provider: Maya Bruno MD Follow-up with PCP in: 1 week (if an appointment has not already been made please call and schedule appointment) Provider: Edil Reese MD Follow-up in: 1 week (If an appointment has not been made please call and schedule an appointment) Time spent Time spent on discharging this patient was greater than 35 minutes, over half of which was involved in counseling and coordination of care. Hamilton Santoyo MD May 10, 2016 23:38
== END 2016-05-10 17:35 | disposition home health service (06) | DRG 292 ==
LOC: SED 14:41 → OBSVTOIN 17:51 → OSC 17:51
PROVIDERS: ADMIT Urology; ATTEND Urology
DX: I50.23 Acute on chronic systolic (congestive) heart failure (principal); E66.2 Morbid (severe) obesity with alveolar hypoventilation; Z68.44 Body mass index [BMI] 60.0-69.9, adult; I42.0 Dilated cardiomyopathy; I47.2 Ventricular tachycardia; R07.89 Other chest pain; Z79.01 Long term (current) use of anticoagulants; Z95.2 Presence of prosthetic heart valve; I48.2 Chronic atrial fibrillation; Z86.718 Personal history of other venous thrombosis and embolism; Z87.891 Personal history of nicotine dependence; R09.02 Hypoxemia; M10.9 Gout, unspecified; F32.9 Major depressive disorder, single episode, unspecified

== ENCOUNTER 2016-07-22 05:58 | Inpatient (IN) | payer MEDICARE, MEDICAID ==
[~2016-07-22] VITALS: Ht 182.9 cm; Wt 194.8 kg
[2016-07-22] VITALS (12 sets, daily range): BP systolic 98–128; BP diastolic 64–115; PULSE 82–125; RESP 18–36; O2SAT 88–98
[~2016-07-22 05:58] MED LIST changes: +ASPI81TA3 PO; +ATOR40TA69 PO; -CEFD300C3 PO; +COLC0.6T52 PO; +DIGO250T72 PO; -DOXY100C PO; +DULO30CA50 PO; +MELA1TAB9 PO; +METO25TA99 PO; +NITR0.4T SL; +SPIR25TA PO; +TORS20TA PO; +TRAZ-115 PO; -WARF3TAB PO; +WARF4TAB6 PO
--- NOTE | 2016-07-22 06:04 | ED.REPORT ---
HPI-Chest Pain 40 and Over Date of Service Jul 22, 2016 ED Provider: Oli Cohen MD Patient is a 56 year old morbidly obese male with a history of CHF, LBBB, and aortic valve replacement who presents to the ED via EMS complaining of chest pain onset 0300 this morning. He reports that the pain is located mid sternum that radiates into his right arm and has been waxing and waning since onset. The patient states that he has had chest pain before but that it did not feel like this. Associated symptoms include dizziness, nausea, belching, insomnia, shortness of breath, diaphoresis, hot flashes, anxiety, urinary retention, and urinary urgency. He also complains of abdominal pain that he describes as feeling hungry. Patient denies dysuria, cough, back pain and vomiting. The patient hasn't been taking his diuretic medication and uses oxygen and BiPAP at home when he feels like he's having difficulty breathing. Nursing Notes Stated Complaint: CHEST PAIN Nursing Notes Reviewed: Yes Allergies: Coded Allergies: cefdinir (Unverified Allergy, Intermediate, 07/22/16) or doxycycline doxycycline (Unverified Allergy, Intermediate, 07/22/16) or to cefdinir azithromycin (Verified Allergy, Mild, 07/22/16) mild chill reportedly on 03/16/16 Heparin Analogues (Verified Allergy, Unknown, 07/22/16) Scheduled Allopurinol (Allopurinol) 300 Mg Tablet 300 MG PO DAILY Aspirin Chew (Aspirin Chew) 81 Mg Chew 81 MG PO DAILY Atorvastatin Calcium (Atorvastatin Calcium) 40 Mg Tablet 40 MG PO HS Colchicine (Colcrys) 0.6 Mg Tablet 0.6 MG PO BID Digoxin (Digoxin) 250 Mcg Tablet 0.25 MG PO DAILY@12 Duloxetine (Duloxetine) 30 Mg Capsule.dr 60 MG PO DAILY Metoprolol Succinate ER (Metoprolol Succinate ER) 25 Mg Tab.er.24h 12.5 MG PO DAILY Potassium Chloride (Potassium Chloride) 20 Meq Tab.er.prt 40 MEQ PO DAILY Spironolactone (Aldactone) 25 Mg Tablet 25 MG PO DAILY Torsemide (Torsemide) 100 Mg Tablet 100 MG PO DAILY Torsemide (Demadex) 20 Mg Tablet 40 MG PO DAILY Warfarin Sodium (Warfarin Sodium) 4 Mg Tablet 4 MG PO DAILY Scheduled PRN Melatonin (Melatonin) 1 Mg Tablet 1 MG PO HS PRN PRN Insomnia Nitroglycerin SL (Nitrostat) 0.4 Mg Tab.subl 0.4 MG SL Q5MIN PRN PRN For Chest Pain Trazodone (Trazodone) 50 Mg Tablet 50-300 MG PO HS PRN PRN For Sleep General Time Seen by MD: 06:04 Chief Complaint Chest pain Hx Obtained From: Patient Arrived By: Ambulance Sudden in Onset?: Yes Onset Occurred: 1 - 4 hours ago Symptom Duration: Waxes and wanes Location: : Substernal Quality: Aching Radiation: : Arm right Context Related History: Reports: Congestive heart failure Recent Healthcare: Recent hospitalization Similar Sx Previous: Yes Past Medical History Past Medical History 1. Obesity hypoventilation syndrome. 2. History of respiratory failure, status post intubation on mechanical ventilation in July 2009. On 2-3L home 2. 3. History of pneumonia in July 2009. 4. Congestive heart failure, chronic, systolic dysfunction by an echocardiogram from February 16, 2011, showing an LVEF of 35% to 40%. 5. history of asymptomatic short runs of V-tach 6. Coagulopathy with elevated INR and PTT, status post previous workup. 7. Morbid obesity. 8. Gout 8. Degenerative joint disease. 9. History of nephrolithiasis. 10. Obstructive sleep apnea, on BiPAP with supplemental oxygen at night. 11. Chronic atrial fibrillation on Coumadin. 12. valvular heart disease 13. aortic stenosis s/p valve replacement 16. history of renal failure Reports: Hypertension Past Surgical History 1. Bilateral knee arthroscopy. 2. Tear duct surgery as a child. 3. valve replacement Smoking History Former Smoker Social History Alcohol Use: Denies alcohol use Drug Use: Denies drug use Other Social History: Poor social support, Lives alone, Local resident Ambulatory Status Walker Review of Systems Respiratory: Reports: Shortness of breath, Denies: Non-productive cough Cardiovascular: Reports: Chest pain GI: Reports: Abdominal pain, Belching, Nausea, Denies: Vomiting Musculoskeletal: Reports: Extremity pain (right arm), Denies: Back pain Skin: Reports Diaphoresis Neurologic: Reports: Dizziness Psychiatric: Reports: Anxiety, Insomnia Complete sys rev & neg: except as marked. Male: Reports Urinary frequency, Reports Urinary urgency, Reports Urination decreased, Denies Dysuria Physical Exam Initial Vital Signs Vital Signs (First) Date Time Temp Pulse Resp B/P Pulse Ox O2 Delivery O2 Flow Rate FiO2 07/22/16 06:14 36.7 125 36 101/75 93 Nasal Cannula 4 Initial VS: Reviewed General/Constitutional: Awake, Alert, No acute distress Appearance / Presentation: Positive: Obese, morbidly Respiratory / Chest: No respiratory distress lungs crackle bilateral at bases Cardiovascular: Heart rate NL, Regular rhythm, Heart sounds NL, No murmurs Abdomen: Soft, Non-tender, No guarding, No rebound Neck: Supple LOWER EXTREMITIES: bilateral lower extremity edema Skin: Atraumatic, Color NL, No rash, Warm, Dry Neurologic: Oriented X3, Speech NL, No motor deficits, No sensory deficits Psychiatric: Affect NL, Mood NL Head / Eyes: Atraumatic, Normocephalic, PERRL, EOMI ENT: Atraumatic, Airway patent, Mucous membranes moist Interpretation & Diagnostics Lab Results Interpretation Result Diagram: 07/22/16 0607 07/22/16 0607 Test 07/22/16 06:07 07/22/16 06:37 07/22/16 06:46 07/22/16 07:16 White Blood Count 12.3th/mm3 (3.8-10.1) Red Blood Count 4.50mil/mm3 (4.40-5.80) Hemoglobin 10.9g/dL (13.8-17.2) Hematocrit 36.6% (41.0-50.0) Mean Corpuscular Volume 81.3fL (81-100) Mean Corpuscular Hemoglobin 24.2pg (27.0-35.0) Mean Corpuscular Hemoglobin Concent 29.8% (32.0-37.0) Red Cell Distribution Width 18.4% (12.3-15.4) Platelet Count 227bil/L (150-400) Neutrophils (%) (Auto) 80.0% (40-74) Lymphocytes (%) (Auto) 5.7% (14-46) Monocytes (%) (Auto) 7.0% (4-12) Eosinophils (%) (Auto) 6.4% (0-5) Basophils (%) (Auto) 0.2% (0-3) Hematology Comments Rbc Hold Purple Top Tube Received (Received) Prothrombin Time 22.1sec (8.1-12.5) Prothromb Time International Ratio 2.04ratio Activated Partial Thromboplast Time 40.4sec (22.8-33.0) Hold Blue Top Tube Received (Received) Sodium Level 132mEq/L (134-144) Potassium Level 3.9mEq/L (3.5-5.2) Chloride Level 82mEq/L (97-108) Carbon Dioxide Level 33mmol/L (18-29) Blood Urea Nitrogen 75mg/dL (6-24) Creatinine 1.83mg/dL (0.76-1.27) Estimat Glomerular Filtration Rate 41mL/min (>59) Glucose Level 106mg/dL (60-99) Calcium Level 9.1mg/dL (8.5-10.1) Magnesium Level 2.4mg/dL (1.6-2.6) Total Bilirubin 1.1mg/dL (0.0-1.2) Aspartate Amino Transf (AST/SGOT) 17U/L (0-50) Alanine Aminotransferase (ALT/SGPT) 8U/L (0-44) Alkaline Phosphatase 90U/L (25-150) Troponin T 0.029ug/L (0.0-0.011) Pro-B-Type Natriuretic Peptide 7708pg/mL (0-121) Total Protein 7.5g/dL (6.4-8.4) Albumin 3.6g/dL (3.4-5.0) Hold Red Top Tube Received (Received) Hold Marceline Top Tube Received (Received) Lactic Acid Level 1.4mmol/L (0.4-2.0) D-Dimer < 0.50mg/L FEU (<0.50) Urine Color Yellow (YELLOW) Urine Appearance Hazy (CLEAR,HAZY) Urine pH 6.0 (5.0-8.0) Urine Specific Jarrell 1.025 (1.003-1.035) Urine Protein 100mg/dL (NEG,TRACE) Urine Glucose (UA) Negativemg/dL (NEGATIVE) Urine Ketones Negativemg/dL (NEGATIVE) Urine Occult Blood Trace (NEGATIVE) Urine Nitrite Negative (NEGATIVE) Urine Bilirubin Negative (NEGATIVE) Urine Urobilinogen Normalmg/dL (NORMAL) Urine Leukocyte Esterase Negative (NEGATIVE) Urine RBC 3-10/hpf (0-2) Urine WBC 0-5/hpf (0-5) Urine Epithelial Cells Occasional/hpf (NONE-MOD) Urine Crystals None seen (NONE SEEN) Urine Bacteria None/hpf (NONE-FEW) Urine Hyaline Casts Occasional/lpf (NONE) Urine Granular Casts None seen (NONE SEEN) Urine Waxy Casts None seen (NONE SEEN) Urine Red Blood Cell Casts None seen (NONE SEEN) Urine White Blood Cell Casts None seen (NONE SEEN) Urine Mucus Present (None Seen) Urine Trichomonas None seen (NONE SEEN) Urine Yeast None (NONE SEEN) Urinalysis Comment None Urine Culture Reflexed Not indicated ECG Interpretation ECG Interpretation: Atrial fibrillation rate 142 IVCD, consider atypical LBBB Interpreted by: ED physician X-Ray Chest Interpretation Chest Xray Interpretation: IMPRESSION: Chronic CHF not significantly changed from prior examination. Dictated by: Manny Bhatt RRA Interpreted: Lelia Donahue MD on 07/22/2016 at 9:28 Transcribed by: ERASTO on 07/22/2016 at 9:29 View: Portable, 1 view Interpretation / Wet Read by: Interpret - Radiologist Re-Eval/Medical Decision Med Decision/Clinical Course 56-year-old male history of CHF, left bundle branch block, atrial fibrillation on Coumadin, were seen aortic valve presenting with chest pain and shortness of breath. Reports chest pain associated with palpitations. On arrival atrial fibrillation RVR 140. Improved with metoprolol to 120. Troponins are elevated. Left bundle branch block on EKG A. fib RVR. History of left bundle-branch block. Patient required diltiazem drip for H of fibrillation with RVR. Discussed with cardiology who recommended admission and trending troponins and EKG. Admitted for atrial fibrillation with RVR, elevated troponins, acute kidney injury, CHF exacerbation. Source of Hx: Old records Time of Eval: 08:05 Patient Status: Pain improved Re-Evaluation/Progress Note: Rechecked patient who describes the pain as palpitations and reports he is still not able to urinate. Time of Eval: 08:30 Patient Status: Condition improved (.) Re-Evaluation/Progress Note: Rechecked patient. Discussed lab results and plan for admit with the patient. The patient understands and agrees to the plan. All questions were addressed. Consultation #1: Referral / Consult Name: Andrea Barahona MD Consulted With: Cardiology Call Returned at: 08:27 Proposal Engineer: Agrees with eval, Agrees with plan Consultation #2: Referral / Consult Name: Deondre Coe MD Consulted With: Hospitalist Call Returned at: 09:01 Proposal Engineer: Agrees with eval, Agrees with plan, Accepts admit Counseled Regarding: Diagnosis, Lab results, Need for admission Discharge & Departure Primary Impression: Atrial fibrillation Additional Impressions: CHF exacerbation Acute kidney injury Chest pain Elevated troponin Disposition: ADMITTED TO HOSPITAL Discharge Condition All VS Reviewed: Yes Condition: Stable Referrals: Maya Bruno MD (PCP) Crit Care Except Billable Proc Time Spent: 30-74 minutes Services Performed: Patient management by me, Time spent at bedside, Reviewing test results, Reviewing imaging, Discussing patient care, Documentation in record Scribe Attestation Portions of this note were transcribed by Brenda Schmidt and Jay Conway. I, Dr. Cohen personally performed the history, physical exam and medical decision-making; I reviewed and confirmed the accuracy of the information in the transcribed note. Signed by: Brenda Schmidt and Jay Conway, Fioribe, and 09:26 copies to: Maya Bruno MD, Ben M MD Jul 22, 2016 06:04 Elena Schmidt Jul 22, 2016 06:16 JAY CONWAY Jul 22, 2016 06:45
[2016-07-22] MEDS ORDERED: MeTOProlol 1 mg/mL 5 mL Inj IVPUSH PRN (06:20)
[2016-07-22 06:38] LABS: BASOPHILS % (AUTO) 0.2 % (0-3); EOSINOPHILS % (AUTO) 6.4 % (0-5); Mean Corpuscular Hemoglobin 24.2 pg (27.0-35.0); Mean Corpuscular Volume 81.3 fL (81-100); Platelet Count 227 bil/L (150-400)
[2016-07-22 07:35] LABS: INR 2.04 ratio
[2016-07-22 07:49] LABS: APPEARANCE,URINE HAZY (CLEAR,HAZY); COLOR,URINE YELLOW (YELLOW); OCCULT BLOOD,URINE TRACE (NEGATIVE); UROBILINOGEN,URINE NORMAL (NORMAL)
[2016-07-22 08:15] LABS: TROPONIN T 0.029 ug/L (0.0-0.011)
[2016-07-22 08:26] LABS: Magnesium 2.4 mg/dL (1.6-2.6)
[2016-07-22] MEDS ORDERED: Alum-Mag Hydrox-Simeth 30 mL Suspension PO PRN ×2 (09:05→12:50)
[2016-07-22] MEDS ORDERED: Ondansetron 2 mg/mL 2 mL Inj IVPUSH PRN ×2 (09:05→12:50)
--- NOTE | 2016-07-22 09:30 | DRSVH ---
PROCEDURE: X-RAY CHEST ONE VIEW, PORTABLE ([id number]) INDICATIONS: dyspnea TECHNIQUE: One view of the chest was acquired. COMPARISON: [facility], CR, XR CHEST 2VW, 04/29/2016, 16:09. [facility], CR , XR CHEST 2V AP/PA AND LAT, 06/25/2016, 11:20 AM. [facility], CR, XR CHEST 1VW (PORTABL E), 04/26/2016, 14:49. FINDINGS: Surgical changes and devices: Patient is status post median sternotomy. Lungs and pleura: No pleural effusions or pneumothorax. There is diffuse pulmonary interstitial prom inence edema. Mediastinum: Mediastinal contours are normal. Severe cardiomegaly is unchanged. Bones and chest wall: No suspicious bony abnormalities. Soft tissues appear unremarkable. IMPRESSION: Chronic CHF not significantly changed from prior examination. Dictated by: Manny Bhatt RRNiecy Interpreted: Lelia Donahue MD on 07/22/2016 at 9:28 Transcribed by: ERASTO on 07/22/2016 at 9:29 Approved by: Lelia Donahue M.D. on 07/22/2016 at 11:30
[2016-07-22] MEDS: Diltiazem Inj 125 MG in Dextrose 5% 100 ML IV SCH ×2 (09:36→20:08)
--- NOTE | 2016-07-22 10:11 | PCM.HPMED ---
Subjective Date of Service Jul 22, 2016 Primary Provider: Admitting Physician: Deondre Coe MD Primary Care Physician: Maya Bruno MD Attending Physician: Deondre Coe MD Admit Status: From the Emergency Department Chief Complaint: Chest pain History of Present Illness: Mr. High is a 56 year old gentleman with a past medical history of CHF, LBBB, and aortic valve replacement who presents to the ED via EMS complaining of chest pain onset 0300 this morning while he was laying in bed, waking him up from sleep He describes pain as a dull pain 4/10overall with sharp intermittent pain. He feels like a "fish out of water". This pain will wax and wane and radiates to his right arm. The patient states that he has had chest pain before but that it did not feel like this as this was more like a pressure. Associated symptoms include dizziness, nausea, belching, insomnia, shortness of breath, diaphoresis, hot flashes, anxiety, urinary retention, and urinary urgency. He states that he has a loss of episode appetite recently though does endorse abdominal pain which may feel like hunger pains. He states exertional shortness of breath as well as shortness of breath while at rest that has progressively gotten worse. States he can walk approximately 10 feet before he needs to stop to catch his breath. He states that he is able to sleep laying down (supine) at night, though mostly on his right side with slight elevation. For the past week patient states that whenever he has had to urinate he has not been able to completely void though he is able to make urine. Due to this he stopped taking his diuretic medication yesterday. Regarding his other medications patient states he is not sure if he is compliant because there is " a lot" and he has to take some multiple times per day, this includes compliance with home metoprolol. He states the medications he has to take 2 and 3 times a day he does not instead taking his medications one time during the day in the morning. Patient hospitalized in April 2016 for same. EF at that time 25-30% . And states recent hospitalization in [place] for same. A comprehensive review of systems was conducted with the patient and found to be negative except as above in the history of present illness. In the emergency department patient had an episode of near syncope, while sitting in the hospital bed. Cardiology was consult from the emergency department. EKG showed atrial fibrillation with a rate of 142 IVCD and atypical left bundle branch block. Chest x-ray showed chronic CHF which had not been significantly changed from prior examination. Lab work remarkable for leukocytosis mild anemia, hyponatremia, elevated BUN/creatinine. Creatinine at 1.83. Troponin slightly elevated at 0.029. Patient given 5 mg IV metoprolol and diltiazem drip initiated. Vital signs in the ED were temperature 36.7, pulse rate 125, respirations 36 blood pressure 101/75 93% on 4 L nasal cannula though at times patient required BiPAP. Allergies Coded Allergies: cefdinir (Unverified Allergy, Intermediate, 07/22/16) or doxycycline doxycycline (Unverified Allergy, Intermediate, 07/22/16) or to cefdinir azithromycin (Verified Allergy, Mild, 07/22/16) mild chill reportedly on 03/16/16 Heparin Analogues (Verified Allergy, Unknown, 07/22/16) Home Medications Per [facility] Home medications: Allopurinol 300 mg by mouth daily Aspirin 81 mg by mouth daily Atorvastatin 40 mg by mouth at bedtime Colchicine 0.6 mg by mouth twice a day Digoxin 0.25 mg by mouth daily Duloxetine 60 mg by mouth daily Melatonin 1 mg by mouth at bedtime Metoprolol succinate ER 12.5 mg by mouth daily Nitroglycerin 0.4 mg sublingual every 5 minutes when necessary Potassium chloride 40 mEq by mouth daily Spironolactone 25 mg by mouth daily Torsemide 40 mg by mouth daily Trazodone 50-3 and her milligrams by mouth at bedtime Warfarin 4 mg by mouth daily PMH 1. Obesity hypoventilation syndrome. 2. History of respiratory failure, status post intubation on mechanical ventilation in July 2009. On 2-3L home 2. 3. History of pneumonia in July 2009. 4. Congestive heart failure, chronic, systolic dysfunction by an echocardiogram from February 16, 2011, showing an LVEF of 35% to 40%. 5. history of asymptomatic short runs of V-tach 6. Coagulopathy with elevated INR and PTT, status post previous workup. 7. Morbid obesity. 8. Gout 8. Degenerative joint disease. 9. History of nephrolithiasis. 10.Obstructive sleep apnea, on BiPAP with supplemental oxygen at night. 11.Chronic atrial fibrillation on Coumadin. 12.valvular heart disease 13. Aortic stenosis s/p valve replacement 14. History of renal failure Reports: Hypertension Surgical History 1. Bilateral knee arthroscopy. 2. Tear duct surgery as a child. 3. Aortic valve replacement 2010 Family History Father alive with diagnosed heart murmur, diabetes type II diet controlled, mother alive and healthy. Grandmother diabetes type II. Social History Hx Alcohol Use: No Hx Substance Use: No Hx Tobacco Use: Yes (used to smoke a couple of cartons per week, quit in 2010 though still will have occasional cigarette) Smoking Status: Former Smoker Living Arrangement: Alone Additional Information He is with 3 grown children all girls who live in the area ages in their mid 30s to late 20s. He has minimal contact with family. Lives alone with no pets. 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 Exam Vital Signs Vital Sign - Last Date Time Temp Pulse Resp B/P Pulse Ox O2 Delivery O2 Flow Rate FiO2 07/22/16 09:36 120 18 128/75 98 BiPAP 07/22/16 06:14 36.7 4 Exam General: Morbidly Obese male awake and alert sitting up in hospital bed in no acute distress, appropriately interactive HEENT: Normocephalic, atraumatic. External ears without defect. Pupils equal, round, and reactive to light and accommodation. Anicteric sclerae, moist conjunctivae, and no lid lag. Oropharynx free of erythema and cobble stoning with moist mucosa. Neck: Supple with full range of motion. Unable to ascertain any jugular venous distention secondary to body habitus Cardiovascular: Irregularly irregular rhythm with a tachycardic rate no appreciable murmurs Pulmonary: Slight rales at lung bases bilaterally, clear to auscultation up her anterior posterior lobes. Normal respiratory effort with no use of accessory muscles. Abdomen: Obese, Bowel tones present unable to appreciate secondary to body habitus. Soft, nontender. Extremities: Lower extremity bilateral 2+ pitting edema. Stasis dermatitis bilaterally lower extremities and upper extremities right wrist bandaged secondary to IV site infiltration. Neurological: Cranial nerves grossly intact. Psychiatric: Normal mood and affect. Alert and oriented to person, place, and time. Lab and Diagnostics Result Diagram: 07/22/1660607/22/16606 X-Rays, CTs and MRIs . X-RAY CHEST ONE VIEW, PORTABLE IMPRESSION: Chronic CHF not significantly changed from prior examination. Dictated by: Manny Bhatt RRA Interpreted: Lelia Donahue MD on 07/22/2016 at 9:28 Assessment & Plan Mr. High is a 56 year old gentleman with a past medical history of CHF, LBBB, and aortic valve replacement admitted for chest pain and A. fib with RVR 1. Chest pain. Present on admission. Ongoing - Etiologies include acute coronary syndrome, GERD, CHF exacerbation, A. fib, medication noncompliance - ECG showed A. fib with LBBB - Echocardiogram from 04/30/2016 showed EF 25-30%, dilated LV, decreased from previous in 2010, 35-40. - Patient recently seen in [place], records pending - Consider repeat echocardiogram - Initial troponin 0.029, in the setting of A. fib - Continue to Trend troponin - Diltiazem drip, continue to wean - Continue home metoprolol 12.5 mg by mouth daily - Continue home digoxin - Continue aspirin - And tinea home atorvastatin 2. A. fib. With RVR. Present on admission. Ongoing -Most likely secondary to medication noncompliance -Continue diltiazem drip, attempt to wean and transition to home meds -Continue home metoprolol -TSH pending -Continue home warfarin, pharmacy to dose 3. Acute on chronic systolic Congestive heart failure exacerbation. Present on admission. Ongoing -Most likely secondary to medication noncompliance -ProBNP 7708 -Echo as above -Metoprolol, diltiazem, digoxin as above -Continue home torsemide 40 mg daily -Give 40 mg IV Lasix 4. Acute kidney injury. Present on admission. Ongoing -Most likely secondary to medication noncompliance -Creatinine 1.83 -Patient reports minimal urine output -Avoid nephrotoxic agents -Continue to closely monitor I's and O's -Renal ultrasound -Bladder scan -Diuretics as above -Encourage oral intake -No indication of UTI -0.4 mg Flomax 5. Chronic hypercapnic respiratory failure. Present on admission. Ongoing -Secondary to obesity hypoventilation syndrome and obstructive sleep apnea -Continue home CPAP -Continue to monitor 6. Elevated troponin. Present on admission. Improving -In the setting of AK I and A. fib -Continue to trend 7. Hyponatremia. Present on admission. Ongoing -Most likely secondary to dilution -Continue to monitor 8. Insomnia. Present on admission. Chronic -Continue home trazodone, melatonin, 9. Depression. Present on admission. Chronic -Continue home duloxetine 10. Gout. Present on admission. Chronic -Continue home allopurinol and colchicine 11. Morbid Obesity. Present on admission. Chronic - Encouraged weight loss Patient Status: Patient was admitted under inpatient status with expected length of stay greater than two midnights due to severity of presenting symptoms , risk of adverse event, and complexity of treatment plan. Social work referral for anticipated needs for discharge to include possible placement in SNF VTE Prophylaxis: Theraputic Anticoag with Warfarin Resuscitation Status: CPR: Attempt Resuscitation Time spent 65 minutes Attending Statement The patient was seen and examined together with Dr. Rodgers on 07/22/16 and I agree with the history, exam and plan as outlined in the note above. copies to: Maya Bruno MD, GILES A DO Jul 22, 2016 10:11 Deondre Coe MD Jul 22, 2016 18:40
--- NOTE | 2016-07-22 11:12 | NUR ---
Admit Patient admitted to 2021 from ED. Report received from AISHA Alvarez. Patient arrived to unit via banner bed. A&Ox3. Patient dyspneic with respirations in the mid 20s. SpO2 in the high 80s-low90s on 4L NC. Tele shows Afib with HR in the 110s-120s. Patient on diltiazem drip and will titrate per protocol. Patient able to move self in bed and stood to bedside scale independently. Patient denies pain/discomfort. Call light within reach
--- NOTE | 2016-07-22 12:34 | NUR ---
Tele/Diltiazem Patient continues to be in Afib with rate in 110s-120s. Diltiazem drip running at 15mg/hour. Patient BP WNL. Will continue to monitor closely.
[2016-07-22] MEDS ORDERED: 0.9% Sodium Chloride 1,000 ML IV SCH (12:48)
[2016-07-22] MEDS ORDERED: Atropine 1 mg/10 mL (Code) Syringe IVPUSH PRN (12:50)
[2016-07-22] MEDS ORDERED: Polyethylene Glycol (PEG) 17 Gm Powder PO PRN (12:50)
[2016-07-22] MEDS ORDERED: Senna-Docusate 8.6-50 mg Tablet PO PRN (12:50)
[2016-07-22] MEDS ORDERED: Furosemide 10 mg/mL 4 mL Inj IVPUSH ONE (16:00)
--- NOTE | 2016-07-22 17:28 | NUR ---
Social Work: Initial Assessment D: Per EMR review; pt is a 56 year old male admitted for Afib wth RVR/Chest Pain/ CHF/MARCUS. Pt it Medicare insurance; pt had DSHS in the past and believes it is current. PCP is Alexander Bruno MD. NOK and DPOA is Cliff High, brother. Advanced directives completed and on chart. Readmit score not entered at this time. LEADERSHIP DEVELOPMENT INSTRUCTOR met with pt at bedside. Sw role explained and contact info provided. See initial assessment. Pt lives alone, in [place]. Pt states he uses a 4WW and 02 through [facility] (both present at bedside). Pt states he has been I with ADLS except driving. Pt was awaiting RENETTA caregiving hours back in April but can't recall his CM name. Previous records suggest this person was Elly Friedman. [facility] will fax clinicals tomorrow morning and determine if pt has RENETTA CGing hours and a CM. Pt states he has a history with [facility] but is not currently open with them. Pt has never been to skilled rehab. A: Pt who lives at home, alone. P: Evolving; LEADERSHIP DEVELOPMENT INSTRUCTOR and COMMISSION SPECIALIST to determine pt's PLOF and RENETTA caregiving hours. Anticipate that pt will at least require home health at discharge. KIRK Acosta Addendum: 07/22/16 at 1736 by ADAIR DE LEON SS Amended: Links added. Addendum: 07/23/16 at 1543 by EMMA HERNANDEZ SS LEADERSHIP DEVELOPMENT INSTRUCTOR received phone call from Zain Shen, liaison with [facility], regarding pt. Pt is currently open with Mariel ESCOBAR RN, PT, OT, LEADERSHIP DEVELOPMENT INSTRUCTOR and chantell jorge. Pt will need resume home health orders at discharge. SW continue to follow. KIRK St
[2016-07-22] MEDS: Sodium Chloride LOK Flush 10 mL Syringe IVFLUSH SCH (17:55)
--- NOTE | 2016-07-22 18:49 | NUR ---
HAIR to [facility] Pt arrived at approximately 1840. Right groin has slight oozing of red blood, small dime size bump. No pain on palp. Pt resting. Hourly checks on groin site per HAIR Tadeo. Care continues. Addendum: 07/22/16 at 1854 by DAVID NICHOLS RN Wrong pt
[2016-07-22] MEDS ORDERED: Potassium Chloride 20 mEq SR Tablet PO ONE (23:50)
[2016-07-22] MEDS: Potassium Chloride 20 mEq SR Tablet PO SCH (23:54)
[2016-07-23] VITALS (10 sets, daily range): BP systolic 100–135; BP diastolic 69–85; PULSE 88–116; RESP 18–24; O2SAT 89–97
--- NOTE | 2016-07-23 00:10 | NUR ---
Potassium Patient voiced concerned about restarting diuretic but no potassium feeling cramping coming on text page potassium restarted
[2016-07-23] MEDS: Sodium Chloride LOK Flush 10 mL Syringe IVFLUSH SCH ×3 (00:12→16:14)
[2016-07-23 03:44] LABS: BASOPHILS % (AUTO) 0.2 % (0-3); EOSINOPHILS % (AUTO) 6.7 % (0-5); MONOCYTES % (AUTO) 6.1 % (4-12); Mean Corpuscular Hemoglobin 24.5 pg (27.0-35.0); Mean Corpuscular Volume 81.6 fL (81-100); NEUTROPHILS % (AUTO) 80.9 % (40-74); Platelet Count 246 bil/L (150-400)
[2016-07-23 03:59] LABS: INR 2.04 ratio
[2016-07-23 04:17] LABS: TROPONIN T 0.027 ug/L (0.0-0.011)
--- NOTE | 2016-07-23 08:47 | DRSVH ---
PROCEDURE: US RENAL SONOGRAM INDICATIONS: Increased Cr, decreased output TECHNIQUE: Real-time scanning was performed of the kidneys and bladder, with image documentation. COMPARISON: [facility], US, ABDOMEN SONOGRAM, 09/26/2013, 0:31. FINDINGS: Kidneys: Right kidney not visualized. Left kidney measures 11.2 cm in length with renal cortical th ickness of 1.1 cm. No left hydronephrosis. Bladder: Not visualized. Miscellaneous: No free pelvic fluid. IMPRESSION: 1. Limited exam demonstrating nonvisualization of the right kidney as before and the left kidney is g rossly normal. Dictated by: Manny BARNETT Interpreted: Carmen Thomas MD on 07/23/2016 at 8:45 Transcribed by: ROXANA on 07/23/2016 at 8:46 Approved by: Carmen Thomas M.D. on 07/23/2016 at 16:00
[2016-07-23] MEDS: Potassium Chloride 20 mEq SR Tablet PO SCH (09:25)
[2016-07-23] MEDS: MeTOProlol XL 25 mg ER24 Tablet PO SCH (09:26)
[2016-07-23] MEDS: DULoxetine 30 mg DR Capsule PO SCH (09:28)
[2016-07-23] MEDS ORDERED: HYDROcodone-APAP 5-325 mg Tablet PO PRN (09:40)
[2016-07-23] MEDS ORDERED: Furosemide 10 mg/mL 2 mL Inj IVPUSH ONE (10:05)
[2016-07-23] MEDS: Albuterol-Ipratropium 3 mL Inhalation Solution NEB PRN (13:10)
--- NOTE | 2016-07-23 14:21 | NUR ---
Faxed clinicals to [facility] SAHIL Friedman per [employer]
--- NOTE | 2016-07-23 17:32 | NUR ---
spiritual care:pt request lengthy conversational visit. pt articulate about his medical situation; reflective about changes he may like to make as he shared his hopes for more independence, social contact. voiced concern about the danger he faces as he feels he can not get help in timely manner with this medical situation as a stock example. (due to dizziness, lack of judgement when he is ill) Pt reflected on family and friend relationships, discussion included ways he can more powerfully discern and act on his strengths and concerns. pt uses humor in coping. pleasant manner.
--- NOTE | 2016-07-23 17:33 | PCM.PNMED ---
Subjective Date of Service Jul 23, 2016 Subjective Mr. High is a 56 year old gentleman with a past medical history of CHF, LBBB, and aortic valve replacement admitted for chest pain, A. fib with RVR and CHF exacerbation. Overnight: Patient concerned about medication administration specifically potassium. Potassium restarted. Patient slept well otherwise uneventful night. Today: Patient awake and alert, laying in bed in no apparent distress. States she was able to sleep well at night, does not currently endorse active chest pain shortness of breath headaches dizziness nausea vomiting or abdominal pain. Exam Vital Signs Vital Sign - Last Date Time Temp Pulse Resp B/P Pulse Ox O2 Delivery O2 Flow Rate FiO2 07/23/16 16:21 36.6 88 18 135/75 96 Nasal Cannula 3.50 Intake and Output 07/22/16 07/22/16 07/23/16 Cumulative From/Thru 15:00 23:00 07:00 07/22/16 06:14 - 07/23/16 06:13 Intake Total 300 ml 360 ml 1064 ml 1724 ml Output Total 380 ml 590 ml 1000 ml 1970 ml Balance -80 ml -230 ml 64 ml -246 ml Intake Oral 360 ml 847 ml 1207 ml IV Total 300 ml 217 ml 517 ml Output Urine Total 380 ml 590 ml 1000 ml 1970 ml # Voids 2 4 6 # Bowel Movements 1 1 Exam General: Morbidly Obese male awake and alert laying in hospital bed in no acute distress, peripheral interactive HEENT: Normocephalic, atraumatic. External ears without defect. Pupils equal, round, and reactive to light and accommodation. Anicteric sclerae, moist conjunctivae, and no lid lag. Neck: Supple with full range of motion. Unable to ascertain any jugular venous distention secondary to body habitus Cardiovascular: Irregularly irregular rhythm with a regular rate. Pulmonary: Clear to auscultation upper anterior lobes. Normal respiratory effort with no use of accessory muscles. Abdomen: Obese, Bowel tones present unable to appreciate secondary to body habitus. Soft, nontender. Extremities: Lower extremity bilateral 2+ pitting edema. Stasis dermatitis bilaterally lower extremities.on. Neurological: Cranial nerves grossly intact. Psychiatric: Normal mood and affect. Alert and oriented to person, place, and time. IVs and Medications Medications Reviewed: Medications were reviewed in detail Lab and Diagnostics Result Diagram: 07/23/16 0305 07/23/16 0305 X-Rays, CTs and MRIs . X-RAY CHEST ONE VIEW, PORTABLE IMPRESSION: Chronic CHF not significantly changed from prior examination. Dictated by: Manny BARNETT Interpreted: Lelia Donahue MD on 07/22/2016 at 9:28 Additional Diagnostics . US RENAL SONOGRAM IMPRESSION: 1. Limited exam demonstrating nonvisualization of the right kidney as before and the left kidney is grossly normal. Dictated by: Manny BARNETT Interpreted: Carmen Thomas MD on 07/23/2016 at 8:45 Assessment & Plan Mr. High is a 56 year old gentleman with a past medical history of CHF, LBBB, and aortic valve replacement admitted for chest pain and A. fib with RVR. Hospital day 2 1. Chest pain. Present on admission. Ongoing - Etiologies include acute coronary syndrome, GERD, CHF exacerbation, A. fib, medication noncompliance - ECG showed A. fib with LBBB - Echocardiogram from 04/30/2016 showed EF 25-30%, dilated LV, decreased from previous in 2010, 35-40%. - Patient recently seen in [place], [facility] pending - Repeat echocardiogram pending - Initial troponin 0.029, in the setting of A. fib - Repeat troponin static 0.026 - Diltiazem drip stopped - Continue home metoprolol 12.5 mg by mouth daily - Continue home digoxin - Continue aspirin - And tinea home atorvastatin 2. A. fib. With RVR. Present on admission. Ongoing -Most likely secondary to medication noncompliance -Continue diltiazem drip, attempt to wean and transition to home meds -Continue home metoprolol -TSH 4.08 -Continue home warfarin, pharmacy to dose 3. Acute on chronic systolic Congestive heart failure exacerbation. Present on admission. Ongoing -Most likely secondary to medication noncompliance -ProBNP 7708 -Echo as above -Metoprolol, digoxin as above -Continue home torsemide 40 mg daily -Give 40 mg IV Lasix 4. Acute kidney injury. Present on admission. Ongoing -Most likely secondary to medication noncompliance -Creatinine trending down 1.64 -Patient reports minimal urine output -Avoid nephrotoxic agents -Continue to closely monitor I's and O's -Renal ultrasound as above -Diuretics as above -Encourage oral intake -No indication of UTI -0.4 mg Flomax 5. Chronic hypercapnic respiratory failure. Present on admission. Ongoing -Secondary to obesity hypoventilation syndrome and obstructive sleep apnea -Continue home CPAP -DuoNeb's when necessary -Continue to monitor 6. Elevated troponin. Present on admission. Improving -In the setting of AK I and A. fib -Continue to trend 7. Hyponatremia. Present on admission. Ongoing -Most likely secondary to dilution -Continue to monitor 8. Insomnia. Present on admission. Chronic -Continue home trazodone, melatonin 9. Depression. Present on admission. Chronic -Continue home duloxetine 10. Gout. Present on admission. Chronic -Continue home allopurinol and colchicine 11. Morbid Obesity. Present on admission. Chronic - Encouraged weight loss Patient Status: Patient was admitted under inpatient status with expected length of stay greater than two midnights due to severity of presenting symptoms , risk of adverse event, and complexity of treatment plan. Social work referral for anticipated needs for discharge to include possible placement in SNF VTE Prophylaxis: Theraputic Anticoag with Warfarin Resuscitation Status: CPR: Attempt Resuscitation GAIL SINGLETON DO Jul 23, 2016 17:33
--- NOTE | 2016-07-23 18:46 | NUR ---
Pain/Resp/Activity/Tele/Dilt Patient a/o x 3, c/o gen pain and foot pain, meds given x 2 with good effect. Patient c/o sob O 2 @ 2-3 L nc sat 91-93%. Lungs clear diminished bilat. Tele A fib 80-100's, Dilt gtt stopped per MD orders. VSS. Patient dangling at bedside freq throughout the shift. Patient amb to bathroom x 1 and showered with assist, mauro fair. Taking diet well. Will cont poc.
--- NOTE | 2016-07-23 21:34 | DRSVH ---
[facility] [address] [place] [place] [address] Echocardiogram Report Name: MASTER FREEMAN MStudy D ate: 07/23/2016 Height: 72 in Hospital Exam Location: [facility] Weight: 453 lb Gender: Male BSA: 3.0 m2 : 1960 Age: 56 yrs BP: 100/77 mmHg Reason For Study: Chest pain Ordering Physician: HOSPITALIST [facility] Performed By: Siva Johnson Referring Physician: GAIL SINGLETON Interpretation Summary 1. Severely dilated left ventricle with normal wall thickness and severe global hypokinesis with an estimated EF of 15 to 20% 2. The right ventricle is not optimally visualized but appears dilated. The estimated right atrial pressure is elevated. 3. Moderate to severe mitral regurgitation into a dilated left atrium 4. The velocities across the bioprosthetic valve appear relatively stable compared to the previous study 5. The ascending aorta is dilated at 4.8 cm Compared to the previous study, the mitral regurgitation has worsened. The IVC was not visualized on the previous two studies. Procedure: A two-dimensional transthoracic echocardiogram with color flow and Doppler was performed. The study quality was technically difficult. A contrast injection of Definity was performed to improve assessment of LV function. Comparison is made with the echocardiogram of 04/27/16. The patient was in atrial fibrillation with heart rates between 84-100 bpm during the exam. Left Ventricle: The left ventricle is severely dilated. Left ventricular wall thickness is at the upper limits of normal. Estimated EF is 10-15%. There is severe global hypokinesis of the left ventricle. Right Ventricle: The right ventricle is not optimally visualized but appears dilated. Cannot assess. Atria: There is severe biatrial enlargement. The interatrial septum is intact with no evidence for an atrial septal defect. Mitral Valve: The mitral valve leaflets are slightly calcified. There is moderate mitral annular calcification. There is moderate to severe mitral regurgitation. Aortic Valve: There is a bioprosthetic aortic valve. The valve is probably functioning normally. The velocity index is 0.29. No aortic regurgitation is present. Tricuspid Valve: The tricuspid valve is not well visualized. The right ventricular systolic pressure is estimated at 49 mmHg assuming a right atrial pressure of 15 mm Hg. At least mild tricuspid regurgitation. Pulmonic Valve: The pulmonic valve is not well visualized. There is mild pulmonic regurgitation. Great Vessels: The aortic root is normal size. The ascending aorta is moderate-severely enlarged. The diameter of the ascending aorta is 4.8 cm. The pulmonary is not well visualized. The IVC is dilated (diameter is greater than 2.1 cm) and it collapses less than 50% with a sniff. This suggests a high right atrial pressure of 15 mm Hg. Pericardium/ Pleura There is no pericardial effusion. There is no pleural effusion. MMode/2D Measurements & Calculations LVIDd: 8.2 cm RA long axis LVOT diam LVIDs: 7.8 cm LA A4 area: 47.3 cm FS: 5.0 % LA length (vol): 8.0 cmRA area AoV Opening EPSS: 3.0 cm IVC diam: 4.1 cm IVSd: 1.1 cm : 40.7 cm Ao root diam LVPWd: 0.97 cm RA vol : 153.ml asc Aorta RA Diam: 4.8 cm : 50.8 mm2 LV martinez. diameter/BSA LV sys. diameter/BSA (cm/m^2): 2.7 (cm/m^2): 2.6 Doppler Measurements & Calculations Ao V2 max: 204.6 cm/secMV E max momo Med Peak E' Momo TR max momo Ao max P.0 mmHg : 131.6 cm/sec : 291.6 cm/sec Ao mean P.9 mmHg MVA(VTI): 2.3 cm2 E/E' med: 18.7 TR max PG LVOT Max Momo Lat Peak E' Momo : 34.1 mmHg : 53.8 cm/sec PA V2 max EVERETT(I,D): 1.3 cm E/E' lat: 21.6 : 58.3 cm/sec sev ratio: 0.29 E/e' average PA mean PG : 0.85 mmHg MV V2 mean: 84.9 cm/secAo V2 mean LV V1 max PG PA V2 mean MV mean P.6 mmHg : 156.8 cm/sec : 40.9 cm/sec MV V2 VTI: 19.7 cm Ao V2 VTI: 35.1 cmLV V1 VTI EVERETT(V,D): 1.2 cm2 : 10.2 cm EVERETT indexed to BSA (cm^2/m^2): 0.43 Reading Physician:09:33 PM
[2016-07-24] VITALS (9 sets, daily range): BP systolic 95–132; BP diastolic 62–85; PULSE 64–112; RESP 18–22; O2SAT 90–98
[2016-07-24] MEDS: Sodium Chloride LOK Flush 10 mL Syringe IVFLUSH SCH ×4 (02:25→23:05)
[2016-07-24 03:26] LABS: BASOPHILS % (AUTO) 0.1 % (0-3); EOSINOPHILS % (AUTO) 7.6 % (0-5); MONOCYTES % (AUTO) 5.6 % (4-12); Mean Corpuscular Hemoglobin 24.6 pg (27.0-35.0); Mean Corpuscular Volume 82.8 fL (81-100); NEUTROPHILS % (AUTO) 81.8 % (40-74); Platelet Count 225 bil/L (150-400)
[2016-07-24 03:37] LABS: INR 2.2 ratio
--- NOTE | 2016-07-24 06:10 | NUR ---
HR/Rest Pt's HR has remained A-Fib 90s-110s with intermittent PVCs and IVCD with 4 runs of V-Tach of 5-10 beats each. Pt is asymptomatic during these episodes and will continue to be monitored. AM labs were drawn and a Mg was added to the labs to check on pt's electrolytes. Pt has c/o difficulty with sleeping throughout the evening and requested a sleep medication approximately at 0500. Pt was notified of the time and still demanded a sleep medication to help them get to sleep for a few hours. Pt was given the sleep medication.
[2016-07-24] MEDS: MeTOProlol XL 25 mg ER24 Tablet PO SCH (10:40)
[2016-07-24] MEDS: Potassium Chloride 20 mEq SR Tablet PO SCH (10:40)
[2016-07-24] MEDS: DULoxetine 30 mg DR Capsule PO SCH (10:41)
[2016-07-24] MEDS ORDERED: Furosemide 10 mg/mL 10 mL Inj IVPUSH ONE (11:20)
--- NOTE | 2016-07-24 11:45 | NUR ---
MAYA Signed. Maria T Wilcox UTILITY ASSEMBLER
[2016-07-24] MEDS: Albuterol-Ipratropium 3 mL Inhalation Solution NEB PRN (11:50)
--- NOTE | 2016-07-24 15:02 | PCM.PNMED ---
Subjective Date of Service Jul 24, 2016 Subjective Overnight: Heart rate remained A. fib's in the 90s to 100s with PVCs and multiple episodes of V. tach lasting 5-10 beats each. Patient reported by night nursing staff to be asymptomatic during these episodes. Patient slept throughout the evening also requesting sleep medication early and this morning. No significant events reported. Today: Patient awake and alert sitting up in bed. States that he has been able to sleep well throughout the night, does not report any chest pain or shortness of breath though does endorse a dizzy sensation as well as blurry vision (this is chronic in nature and patient's eye glasses are broken at the bedside). Exam Vital Signs Vital Sign - Last Date Time Temp Pulse Resp B/P Pulse Ox O2 Delivery O2 Flow Rate FiO2 07/24/16 12:31 37.0 98 20 109/76 98 BiPAP 07/24/16 11:50 3.50 Intake and Output 07/23/16 07/23/16 07/24/16 Cumulative From/Thru 15:00 23:00 07:00 07/22/16 06:14 - 07/24/16 06:21 Intake Total 86 ml 1520 ml 1493 ml 4823 ml Output Total 1400 ml 1500 ml 4870 ml Balance 86 ml 120 ml -7 ml -47 ml Intake Oral 1520 ml 1493 ml 4220 ml IV Total 86 ml 603 ml Output Urine Total 1400 ml 1500 ml 4870 ml # Voids 6 # Bowel Movements 1 2 Exam General: Morbidly Obese male awake and alert laying in hospital bed in no acute distress, appropriately interactive. HEENT: Normocephalic, atraumatic. External ears without defect. Pupils equal, round, and reactive to light and accommodation Neck: Supple with full range of motion. Unable to ascertain any jugular venous distention secondary to body habitus Cardiovascular: Irregularly irregular rhythm with a regular rate. No murmurs appreciated Pulmonary: Clear to auscultation upper and lower posterior lobes. Normal respiratory effort with no use of accessory muscles. Abdomen: Obese, unable to appreciate bowel tones secondary to body habitus. No soft and nontender Extremities: Lower extremity bilateral 2+ pitting edema. Stasis dermatitis bilaterally lower extremities.on. Neurological: Cranial nerves grossly intact. Psychiatric: Normal mood and affect. Alert and oriented to person, place, and time. IVs and Medications Medications Reviewed: Medications were reviewed in detail Lab and Diagnostics Result Diagram: 07/24/16 0235 07/24/16 0235 X-Rays, CTs and MRIs . X-RAY CHEST ONE VIEW, PORTABLE IMPRESSION: Chronic CHF not significantly changed from prior examination. Dictated by: Manny BARNETT Interpreted: Lelia Donahue MD on 07/22/2016 at 9:28 Cardiac Echo Impressions . Echocardiogram Report Interpretation Summary: 1. Severely dilated left ventricle with normal wall thickness and severe global hypokinesis with an estimated EF of 15 to 20% 2. The right ventricle is not optimally visualized but appears dilated. The estimated right atrial pressure is elevated. 3. Moderate to severe mitral regurgitation into a dilated left atrium 4. The velocities across the bioprosthetic valve appear relatively stable compared to the previous study 5. The ascending aorta is dilated at 4.8 cm Compared to the previous study, the mitral regurgitation has worsened. The IVC was not visualized on the previous two studies. Additional Diagnostics . US RENAL SONOGRAM IMPRESSION: 1. Limited exam demonstrating nonvisualization of the right kidney as before and the left kidney is grossly normal. Dictated by: Manny BARNETT Interpreted: Carmen Thomas MD on 07/23/2016 at 8:45 Assessment & Plan Mr. High is a 56 year old gentleman with a past medical history of CHF, LBBB, and aortic valve replacement admitted for chest pain and A. fib with RVR. Hospital day 3 1. Chest pain. Present on admission. Resolved - Etiologies include acute coronary syndrome, GERD, CHF exacerbation, A. fib, medication noncompliance - ECG showed A. fib with LBBB - Echocardiogram from 04/30/2016 showed EF 25-30%, dilated LV, decreased from previous in 2010, 35-40%. - Repeat echo shows EF 15-20% and visualization of the IVC which would suggest fluid overload - Initial troponin 0.029, in the setting of A. fib - Repeat troponin static 0.026 - Diltiazem drip stopped - Continue home metoprolol 12.5 mg by mouth daily - Continue home digoxin - Continue aspirin - Continuehome atorvastatin 2. A. fib. With RVR. Present on admission. Ongoing -Most likely secondary to medication noncompliance -Weaned off diltiazem -Continued home metoprolol -TSH 4.08 -Continue home warfarin, pharmacy to dose 3. Acute on chronic systolic Congestive heart failure exacerbation. Present on admission. Ongoing -Most likely secondary to medication noncompliance -ProBNP 7708 -Echo on current admission Ef 15-20% ,lower than recent EF 25-30% -Metoprolol, digoxin as above -Continue home torsemide 40 mg daily -Give 40 mg IV Lasix -Continue monitoring of I's and O's 4. Acute kidney injury. Present on admission. Ongoing -Most likely secondary to medication noncompliance -Creatinine trending down 1.64 -Patient reports minimal urine output -Avoid nephrotoxic agents -Continue to closely monitor I's and O's -Renal ultrasound as above -Diuretics as above -Encourage oral intake -No indication of UTI -0.4 mg Flomax 5. Chronic hypercapnic respiratory failure. Present on admission. Ongoing -Secondary to obesity hypoventilation syndrome and obstructive sleep apnea -Continue home CPAP -DuoNeb's when necessary -Continue to monitor 6. Elevated troponin. Present on admission. Improving -In the setting of AK I and A. fib -Continue to trend 7. Hyponatremia. Present on admission. Improving -Most likely secondary to dilution -Continue to monitor 8. Insomnia. Present on admission. Chronic -Continue home trazodone, melatonin 9. Depression. Present on admission. Chronic -Continue home duloxetine 10. Gout. Present on admission. Chronic -Continue home allopurinol and colchicine 11. Morbid Obesity. Present on admission. Chronic - Encouraged weight loss Disposition: Patient will most likely be discharged to home in the next 1-2 days , awaiting social work input and recommendations regarding possible SNF placement. VTE Prophylaxis: Theraputic Anticoag with Warfarin Resuscitation Status: CPR: Attempt Resuscitation Attending Statement The patient was seen and examined together with Dr. Rodgers on 07/24/16 and I agree with the history, exam and plan as outlined in the note above. GAIL RODGERS DO Jul 24, 2016 14:49 Deondre Coe MD Jul 24, 2016 16:20
--- NOTE | 2016-07-24 15:57 | NUR ---
Social Work- Continued D/C Planning Data: EMR reviewed. Pt is on day 2 of hospitalization for AFIB RVR/ Chest Pain/CHF/MARCUS per H&P. SW spoke with pt regarding discharge plan, SW role explained. Pt is currently open with [facility] RN PT OT DIRECT MARKETING SPECIALIST and Bath Aide. Pt unsure if he has RENETTA, SW called [facility] regarding pt's admission. Per RN notes, pt is ambulating to the bathroom and showering with slight assistance. Pt continues to be diuresed. SW spoke with MD regarding potential SNF admission. SW spoke with pt regarding this recommendation, pt agreeable to this. SNF CHOICE LIST PROVIDED. Pt requests referral to be made to (1)[facility] and (2) [facility] for review. Facesheet faxed to both facilities. Access given. Pt to discharge either home with Mariel ESCOBAR RN PT OT DIRECT MARKETING SPECIALIST bath aide or to SNF pending acceptance. SW will continue to follow. Assessment: Pt who may benefit from SNF vs [facility] ESCOBAR RN PT OT DIRECT MARKETING SPECIALIST bath aide Plan: Referral made to (1) [facility] and (2) [facility]. Pt to discharge either home with Mariel ESCOBAR RN PT OT DIRECT MARKETING SPECIALIST bath aide or to SNF pending acceptance. SW will continue to follow. Maria T Wilcox DIRECT MARKETING SPECIALIST
--- NOTE | 2016-07-24 16:55 | NUR ---
Rest/Activity/Diet Patient a/o x 3, denies pain or nausea. Patient sleeping most of the shift but arouses easily. Taking diet well. Lungs clear bilat. O2 @ 3L nc while awake and cpap when asleep. Patient recieved IV Lasix output slightly higher then intake. Patient declined amb this shift. VSS, tele A fib 90-110's. Will cont poc.
[2016-07-24] MEDS: Senna-Docusate 8.6-50 mg Tablet PO SCH (20:14)
[2016-07-25] VITALS (12 sets, daily range): BP systolic 94–120; BP diastolic 63–87; PULSE 69–92; RESP 16–22; O2SAT 90–99
[2016-07-25 03:11] LABS: BASOPHILS % (AUTO) 0.2 % (0-3); EOSINOPHILS % (AUTO) 8.8 % (0-5); MONOCYTES % (AUTO) 5.6 % (4-12); Mean Corpuscular Hemoglobin 24.2 pg (27.0-35.0); Mean Corpuscular Volume 81.4 fL (81-100); NEUTROPHILS % (AUTO) 78.9 % (40-74); Platelet Count 191 bil/L (150-400)
[2016-07-25 03:22] LABS: INR 1.92 ratio
--- NOTE | 2016-07-25 06:36 | NUR ---
HR Pt had 4 runs of V-Tach throughout the night. The runs of V-Tach were between 9-14 beats. Pt was asymptomatic during the V-Tach and did not c/o palpitations, dizziness, or light headedness. Pt did not c/o chest pain throughout the shift.
[2016-07-25] MEDS ORDERED: Furosemide 10 mg/mL 2 mL Inj IVPUSH ONE (09:15)
[2016-07-25] MEDS ORDERED: Potassium Chloride 20 mEq SR Tablet PO ONE ×2 (10:00→13:40)
[2016-07-25] MEDS: DULoxetine 30 mg DR Capsule PO SCH (10:43)
[2016-07-25] MEDS: Potassium Chloride 20 mEq SR Tablet PO SCH (10:45)
[2016-07-25] MEDS: Senna-Docusate 8.6-50 mg Tablet PO SCH ×2 (10:45→21:24)
[2016-07-25] MEDS: MeTOProlol XL 25 mg ER24 Tablet PO SCH ×2 (10:45→21:24)
[2016-07-25] MEDS: Sodium Chloride LOK Flush 10 mL Syringe IVFLUSH SCH ×2 (10:55→16:30)
--- NOTE | 2016-07-25 10:56 | NUR ---
Telemetry Update: VTACH Runs Patient has been Afib 70-90s with multiform PVCs. Patient has had several runs of VT this mornin:48 - 5bt 09:57 - 34bt 09:59- 9bt 10:46 - 6bt Will continue to monitor. AISHA munoz. Addendum: 07/25/16 at 1758 by IFEANYI GATICA 16:50 - 16bt AISHA munoz.
--- NOTE | 2016-07-25 14:12 | PCM.PNMED ---
Subjective Date of Service Jul 25, 2016 Subjective Patient is a 56-year-old morbidly obese gentleman with HFrEF, KOKI, pulmonary hypertension, LBBB, history of DVT/PE, recurrent VT, bioprosthetic aortic valve replacement admitted for chest pain and A. fib with RVR. Hospital day #4. Overnight the patient had four runs of VT, the longest being 11 beats, then this morning the patient had a 32 beat run of VT. The patient was asymptomatic with these. At time of visit, the patient reports some dizziness, otherwise he reports feeling well overall without other complaints. He denies chest pain, shortness of breath, fever, chills, abdominal pain, nausea, emesis. He reports his urinary urgency is improved. Exam Vital Signs Vital Sign - Last Date Time Temp Pulse Resp B/P Pulse Ox O2 Delivery O2 Flow Rate FiO2 07/25/16 11:19 36.8 83 18 120/85 97 Nasal Cannula 3.00 Intake and Output 07/24/16 07/24/16 07/25/16 Cumulative From/Thru 15:00 23:00 07:00 07/22/16 06:14 - 07/25/16 04:51 Intake Total 1860 ml 1268 ml 7951 ml Output Total 3050 ml 1825 ml 9745 ml Balance -1190 ml -557 ml -1794 ml Intake Oral 1860 ml 1268 ml 7348 ml IV Total 603 ml Output Urine Total 3050 ml 1825 ml 9745 ml # Voids 6 # Bowel Movements 0 1 3 Exam General: Morbidly obese male supine in bed. No acute distress, appropriately interactive. HEENT: Normocephalic, atraumatic. External ears without defect. CPAP mask in place. Cardiovascular: Irregularly irregular. Distant heart tones. No murmurs appreciated Pulmonary: Clear bilaterally. Normal respiratory effort with no use of accessory muscles. Abdomen: Soft and nontender. Extremities: Bilateral lower extremity pitting edema and stasis dermatitis Neurological: Cranial nerves grossly intact. Psychiatric: Normal mood and affect. Alert and oriented to person, place, and time. IVs and Medications Medications Reviewed: Medications were reviewed in detail Lab and Diagnostics Result Diagram: 07/25/16 0230 07/25/16 0230 X-Rays, CTs and MRIs . X-RAY CHEST ONE VIEW, PORTABLE IMPRESSION: Chronic CHF not significantly changed from prior examination. Dictated by: Manny BARNETT Interpreted: Lelia Donahue MD on 07/22/2016 at 9:28 Cardiac Echo Impressions . Echocardiogram Report Interpretation Summary: 1. Severely dilated left ventricle with normal wall thickness and severe global hypokinesis with an estimated EF of 15 to 20% 2. The right ventricle is not optimally visualized but appears dilated. The estimated right atrial pressure is elevated. 3. Moderate to severe mitral regurgitation into a dilated left atrium 4. The velocities across the bioprosthetic valve appear relatively stable compared to the previous study 5. The ascending aorta is dilated at 4.8 cm Compared to the previous study, the mitral regurgitation has worsened. The IVC was not visualized on the previous two studies. Additional Diagnostics . US RENAL SONOGRAM IMPRESSION: 1. Limited exam demonstrating nonvisualization of the right kidney as before and the left kidney is grossly normal. Dictated by: Manny BARNETT Interpreted: Carmen Thomas MD on 07/23/2016 at 8:45 Assessment & Plan Patient is a 56-year-old morbidly obese gentleman with HFrEF, KOKI, pulmonary hypertension, LBBB, history of DVT/PE, recurrent VT, bioprosthetic aortic valve replacement admitted for chest pain and A. fib with RVR. Hospital day #4. 1. Chest pain. Present on admission. Resolved - Etiologies include acute coronary syndrome, GERD, CHF exacerbation, A. fib, medication noncompliance - ECG showed A. fib with LBBB - Echocardiogram from 04/30/2016 showed EF 25-30%, dilated LV, decreased from previous in 2010, 35-40%. - Repeat echo shows EF 15-20% and visualization of the IVC which would suggest fluid overload - Initial troponin 0.029, in the setting of A. fib - Repeat troponin static 0.026 - Diltiazem drip stopped - Continue home metoprolol 12.5 mg by mouth daily - Continue home digoxin - Continue aspirin - Continuehome atorvastatin 2. Recurrent ventricular tachycardia, chronic. Present on admission. Ongoing -Several episodes of VT with longest being 32 beats today on 07/25 -patient has recent decline of EF to 15 % from baseline of 25-30% -Past records indicate this is chronic -Potassium and magnesium are within normal limits -Cardiology consultation for AICD eval. Doubt he will be a candidate due to his extreme obesity and high risk for anaesthesia.Recommendations per Cardiology appreciated 3. Atrial fibrillation with RVR. Present on admission. Ongoing -Most likely secondary to medication noncompliance -TSH 4.08 -Weaned off diltiazem gtt -Continue metoprolol -Continue home warfarin, pharmacy to dose 4. Acute exacerbation of chronic systolic congestive heart failure. Present on admission. Ongoing -Most likely secondary to medication noncompliance -ProBNP 7708 -Echo on current admission Ef 15-20%. Decrease from previous of EF 25-30% -Metoprolol, digoxin as above -Continue home torsemide 40 mg daily -Lasix 20mg one time today. Will reassess fluid status -Continue monitoring of I's and O's 5. Acute kidney injury. Present on admission. Ongoing -Likely secondary to acute CHF -Creatinine 1.83 on admit -Renal ultrasound exam limited - nonvisualization of the right kidney and the left kidney is normal -Avoid nephrotoxic agents -Continue to closely monitor I's and O's -No indication of UTI -0.4 mg Flomax 6. Chronic hypercapnic respiratory failure. Present on admission. Ongoing -Secondary to obesity hypoventilation syndrome and obstructive sleep apnea -Continue home CPAP -DuoNeb's when necessary -Continue to monitor 7. Elevated troponin. Present on admission. Improving -In the setting of MARCUS and A. fib with RVR -No change in troponin level 8. Hyponatremia, chronic. Present on admission. Improving -Most likely secondary to dilution -Continue to monitor 9. Insomnia, chronic. Present on admission. -Continue home trazodone, melatonin 10. Depression, chronic. Present on admission. -Continue home duloxetine 11. Gout, chronic. Present on admission. -Continue home allopurinol and colchicine 12. Morbid Obesity. Present on admission. Chronic - Encouraged weight loss - Patient is ideal candidate for bariatric surgery Disposition: Patient will most likely be discharged to home in the next 1-2 days. Awaiting cardiology recommendations, social work input and recommendations regarding possible SNF placement. VTE Prophylaxis: Theraputic Anticoag with Warfarin Resuscitation Status: CPR: Attempt Resuscitation Attending Statement The patient was seen and examined together with Dr. Montiel on 07/25/16 and I agree with the history, exam and plan as outlined in the note above. Zach Montiel DO Jul 25, 2016 14:12 Deondre Coe MD Jul 25, 2016 16:06
--- NOTE | 2016-07-25 14:24 | NUR ---
Social Work- Readiness for Discharge Data: EMR reviewed. Pt is on day 3 of hospitalization for AFIB RVR/ Chest Pain/CHF/MARCUS per H&P. Pt is not medically ready for discharge, anticipate 1-2 more days. BRANDY spoke with Shante at [facility] regarding referral faxed over yesterday. MV is concerned about pt's weight and will be discussing pt in facilities' clinical rounds Tuesday morning. [facility]- continues to review pt. Pt is currently open with Mariel ESCOBAR RN PT OT [employer]OLOG[employer] and Bath Aide. Pt unsure if he has RENETTA, BRANDY called [facility] regarding pt's admission. SW to follow up on Tuesday regarding pt's RENETTA and caregiver assignment. At this time, pt to discharge either home with Mariel ESCOBAR RN PT OT ANIMAL PHYSIOLOGIST bath aide or to SNF pending acceptance. BRANDY will continue to follow. Assessment: Pt who may benefit from SNF vs Mariel ESCOBAR RN PT OT ANIMAL PHYSIOLOGIST bath aide Plan: [facility] to discuss pt's potential SNF admission Tuesday in clinical rounds. [facility]- continues to review pt. Pt to discharge either home with Mariel ESCOBAR RN PT OT ANIMAL PHYSIOLOGIST bath aide or to SNF pending acceptance. BRANDY will continue to follow. Maria T Wilcox, ANIMAL PHYSIOLOGIST
--- NOTE | 2016-07-25 18:46 | NUR ---
Activity/Tele Patient a/o x 3, PEÑA. Patient denies pain or nausea, but cont to have sob at rest and with activity. Sleeping intermittently throughout the shift, but arouses easily. Patient amb in room with walker and sba and showered this evening, mauro fair. Patient taking diet well. KCL given x 3 per MD orders. Patient tele A fib with several runs VTach up 34 beats. Patient denies chest pain with VTach but c/o dizziness throughout the shift. Will cont poc.
--- NOTE | 2016-07-25 20:38 | CONS ---
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 Robert has asked that I consult on this extremely complex, 56-year-old male with multiple medical problems including severe LV systolic dysfunction, atrial fibrillation, and nonsustained ventricular tachycardia. HISTORY: The patient's cardiac history dates back to 2009 when he presented with morbid obesity with a weight in excess of 500 pounds and respiratory failure requiring intubation. Echocardiography at that time suggested marked left ventricular enlargement with an ejection fraction around 40% with a bicuspid and severely stenotic aortic valve. He was noted to have nonsustained ventricular tachycardia and was asymptomatic but was otherwise in sinus rhythm. He was diuresed and treated for pneumonia and was seen by Dr. Araya with some symptomatic improvement but was subsequently found to have severe sleep apnea with hypoventilation syndrome and was started on BiPAP therapy. It was felt that surgical intervention was limited by his marked obesity, but he was referred to the [facility] and was found to have a lupus anticoagulant. He underwent cardiac catheterization in October 2009 that showed only slight luminal irregularity of the RCA but no other significant coronary artery disease and an aortic valve area of 1.1 cm consistent with moderately severe aortic stenosis, and given his surgical risk, replacement was deferred. He had serial echocardiograms that showed progression of his aortic stenosis, again with an ejection fraction around 40%, and was readmitted in June 2011 with heart failure and acute renal failure with a creatinine up to 2.2 and again nonsustained VT noted up to 16 beats. An echocardiogram now showed an ejection fraction of 20% to 30% with progressive aortic stenosis, and he was transferred to the [facility] where he underwent bioprosthetic aortic valve replacement in July 2011. He was readmitted in 2013 with increasing dyspnea and a creatinine of 2.6 with markedly elevated LFTs and was found to be in atrial fibrillation at 115 bpm after being noncompliant with his medications. Echocardiography at that time again showed left ventricular enlargement at 7.8 cm with an ejection fraction of about 20% to 25% with global hypokinesis but normal aortic valve function, although with evidence of right heart failure with increased CVP. Attempts at diuresis were limited because of hypotension and progressive renal failure, and he was started on dobutamine and transferred to the [facility] where he was again noted to have long runs of nonsustained ventricular tachycardia for which he was started on amiodarone. Right heart catheterization showed a wedge pressure of 40, but with a fairly normal cardiac index and he was started on dobutamine with chronic diuresis using Bumex and metolazone with slow improvement in his creatinine down to 1.6 at the time of discharge. His amiodarone was changed to metoprolol. ICD was considered but was not placed because of the weight limit of the cardiac catheterization table. He was discharged to a detention and was subsequently followed at the [facility] and continued to have a hypercapnia syndrome with respiratory failure. He was treated with BiPAP mask and his metoprolol was incrementally increased with consideration for adding digoxin. He was admitted in November 2013 with dyspnea and a creatinine of 1.3. His echocardiogram was essentially unchanged, and he was again noted to have nonsustained ventricular tachycardia which was treated with beta maryjane therapy and bariatric surgery was recommended. He was last seen at the [facility] in April 2014 and was on torsemide 100 mg daily with advisement to increase this to b.i.d. for increased weight accumulation. His heart rate was fairly well controlled on carvedilol 12.5 mg in the morning and 25 mg in the evening. He was admitted at [facility] in November 2014 with gout and had a creatinine of 1.9 that increased to 2.3 and was noted to have a potassium of 2.9, but at the time of discharge his creatinine had improved down to 1.4. He was admitted in March 2016 with dyspnea and cough and had a creatinine of 1.1. He was felt to have a community-acquired pneumonia and was treated with antibiotic therapy. His echocardiogram was essentially unchanged, again with an LV size of 7.8 cm with an estimated ejection fraction of around 20% by my personal review of the images. He was discharged but readmitted several weeks later because of pleuritic chest discomfort. His heart rate was 74 with a blood pressure of 116 and a creatinine of 1.1. An echocardiogram was essentially unchanged. He was seen by Dr. Reese in consultation and it was felt that his chest discomfort was atypical and he had negative serial troponins and with his absence of any history of coronary disease and the fact that diagnostic studies were limited by his obesity, his medications were just adjusted and he was started on digoxin and metoprolol and his torsemide was reduced down to 40 mg daily and spironolactone was started. He again was noted to have some nonsustained ventricular tachycardia up to 36 beats but, again, it was felt that device implantation was limited because of his morbid obesity. He was scheduled for followup with Dr. Reese but failed followup. He subsequently apparently had progressive increasing edema with dyspnea and was admitted to [facility] on June 25, 2016 and was seen by Cardiology there. He reportedly was taking Lasix and warfarin but had stopped his beta maryjane LUDIN inhibitor. There was concern for his medication and dietary compliance. He was noted to have some nonsustained ventricular tachycardia. He had acute on chronic renal insufficiency with a creatinine increasing up to 2.2, but at the time of discharge apparently was around 1.8. On the basis of this, his LUDIN inhibitor was discontinued and he was put on hydralazine and isosorbide and was discharged on his previous dose of Lasix with emphasis on dietary salt restriction. Cardiology again felt that the patient was not a good candidate for device therapy because of his noncompliance. He was discharged on July 03, 2016 and was seen by Lynne Altamirano on July 19, 2016 after having been started on metolazone 2.5 mg on July [address] Bruno with a resultant potassium of 2.9. His potassium was increased. His heart rate at that time was 116 with a blood pressure of 110/84. He subsequently developed progressive "fluid accumulation" with perception of reduced urine output but with increased urinary urgency that prevented adequate sleep. With this, he developed dyspnea, chest discomfort and some confusion with "dizziness" which he describes as more of an inability to focus rather than any presyncope. With this, he noted increased palpitations and ultimately called the medics and he was brought to [facility] ED where he was found to be in atrial fibrillation at 142 bpm with a creatinine of 1.8 and a troponin of 0.03. He was treated with IV metoprolol and diltiazem drip. Again, there was concern for medication noncompliance. Here, a repeat echocardiogram was obtained that now showed a dimension of 8.2 cm with an ejection fraction around 15% to 20%, although by my review in comparison with the previous echocardiogram it appears essentially unchanged with possible moderate mitral regurgitation although image quality is quite poor. His diltiazem has been discontinued and he has been started on metoprolol now with heart rates generally in the 80 to 100 bpm range although again with salvos of wide complex tachycardia, at times with an irregular RR interval up to around 34 beats. It is not clear that he has been symptomatic from these. Overall, he feels improved since admission although continues to have intermittent dyspnea but denies any clear orthopnea. His chest discomfort has resolved. He feels his urine output has improved. CARDIAC RISK FACTORS: Used to smoke 2-3 packs per day but now just smokes around one cigarette per week. He denies any history of longstanding hypertension, diabetes or hyperlipidemia. He denies any family history of coronary disease, although his father has a murmur. PAST MEDICAL HISTORY: Notable for his morbid obesity with hypoventilation syndrome. He has osteoarthritis and a history of gout and probable underlying COPD as well as a lupus anticoagulant with a history of DVT. Remote history of nephrolithiasis. HOME MEDICATIONS: Listed in the medical record, although the patient is unable to verify this, are: 1. Allopurinol 300 mg daily. 1. Aspirin 81 mg daily. 2. Atorvastatin 40 mg q.h.s. 3. Colchicine 0.6 mg b.i.d. 4. Digoxin 0.25 mg daily although his digoxin level on admission was negligible. 5. Duloxetine 60 mg daily. 6. Melatonin 1 mg daily. 7. Metoprolol 12.5 mg b.i.d. 8. Potassium 40 mEq daily. 9. Spironolactone 25 mg daily. 10. Torsemide 40 mg daily. 11. Trazodone p.r.n. 12. Warfarin 4 mg daily. FAMILY HISTORY: As above. SOCIAL HISTORY: The patient lives alone and is unemployed. He does not drink any alcohol. He has particular concerns about returning home and has high anxiety about his ability to care for himself. REVIEW OF SYSTEMS: A complete review is performed and is notable for his description of some recent fevers and chills, but this has not been documented here. He describes a recent weight change. Denies any acute vision change, although has reduced ability to "focus." Denies any ENT. Denies any cough or hemoptysis. Denies any peptic ulcer disease or GI blood loss or hematuria. Denies any focal neurologic symptoms. He has had some recent right elbow pain as well as some muscular cramps in his hands. Denies any history of any thyroid disorder. He states he has been taking his warfarin regularly. He continues to express anxiety particularly about his home situation. PHYSICAL EXAMINATION: Pleasant, but massively obese, middle-aged male, in no distress. HR 80-100 bpm, BP 120/85, O2 saturation 97% on 3 L of nasal cannula. His weight is 218 kg. It was 215 kg on admission despite a negative fluid balance of around 1.5 L. Skin: Warm and dry. HEENT: EOMI without arcus. He has fair dentition. Lungs: Reveal reduced breath sounds throughout but clear to auscultation and percussion. CV: Nonpalpable PMI with irregularly irregular rhythm with distant heart tones but no appreciable murmurs or gallops. JVP is impossible to assess because of his nuchal obesity. Carotid pulse is mildly diminished on the right but 2+ on the left with a normal upstroke. Dorsalis pedis and posterior tibial pulses are nonpalpable. Abdomen: Massively obese with a huge pannus. No guarding or rebound. No obvious hepatosplenomegaly. Extremities: Warm with chronic changes of stasis with varicose veins. Neuro: Moves all four extremities. Psych: Awake, alert, and oriented. LABORATORY: His creatinine has improved down to 1.5. His potassium yesterday was 3.5 and this morning is 3.6 with a magnesium level of 2.2 this morning. LFTs are normal. Blood sugar has been in the 105-123 range. Hematocrit is 32% with a white count of 6.4. INR on admission was 2.0 and is 1.9 today. Dig level was negligible. Chest x-ray: Suggests cardiomegaly with diffuse interstitial prominence. ECG: Shows atrial fibrillation, 142 bpm with an incomplete left bundle-branch block and is unchanged from his previous ECG with the exception of an elevated heart rate. Telemetry is as described above. IMPRESSION: 1. Nonsustained ventricular tachycardia. This has been previously noted and he has remained relatively asymptomatic. I suspect it is multifactorial, likely due to his dilated cardiomyopathy, his recent diuresis now with relatively low potassium levels, and his hypoventilation. As previously reported and suggested by his most recent hospitalization in [place], I think ICD placement would be challenging because of his morbid weight which exceeds any of our slab off mill tender tables to allow fluoroscopy and implantation. While one could consider amiodarone, given his multitude of other medical problems and the fact that he has had this ventricular ectopy previously documented, I would initially attempt conservative therapy by maintaining potassium levels consistently greater than 4.0, and magnesium levels greater than 2.0. In addition, I would continue to try to upward titrate his metoprolol as much as his heart rate and blood pressure will allow. I once again have recommended bariatric surgery to the patient to allow for further diagnostic evaluation and treatment. He states that he has been referred to the [facility] but has been unable to make any of the appointments because of the difficulty in transportation because of his morbid obesity. 2. Severe left ventricular systolic dysfunction. His volume status is extremely challenging to assess, but I suspected he does have some evidence of volume overload. I suspect that he will require higher dose of the torsemide, but this will likely need to be advanced slowly, again with close observation of his electrolytes and renal function. I would like to re-attempt low-dose LUDIN inhibitor for some afterload reduction as I suspect his isosorbide and his diltiazem have been challenging to take from a compliance standpoint. This will require close observation of his renal insufficiency. 3. Chest discomfort. I doubt this represents an underlying myocardial ischemia given his normal cardiac catheterization and absence of significant risk factors. Given this, I think it is reasonable to stop his atorvastatin and aspirin to simplify his medications and reduce his risk. 4. Status post aortic valve replacement. Appears to be functioning adequately by his most recent echocardiogram. 5. Morbid obesity with hypercapnic respiratory failure. Continue with BiPAP treatment and again pursue consideration for bariatric surgery. This will be deferred to the hospitalist. 6. Acute on chronic renal insufficiency, as above. He will need to have his digoxin level followed closely. 7. Social situation. I think this patient has had challenges in managing his medications and, given this, I think referral to an assisted living situation or detention may be appropriate, but I will defer this decision to the hospitalist. RECOMMENDATIONS: 1. Increase torsemide to 60 mg daily and supplement potassium to levels greater than 4.0 and magnesium greater than 2.0. 2. Slowly upward titrate metoprolol and continue digoxin but following digoxin levels closely and insuring that his potassium stays greater than 4.0. 3. Start lisinopril 2.5 mg b.i.d. but follow renal function closely. 4. Consider amiodarone therapy if he has more prolonged or symptomatic episodes of ventricular tachycardia. 5. Consider discharge to assisted living or detention situation. 6. The patient should see either the [place] travel sales consultant or our group in followup. If he chooses to pursue our group, I think it would be most reasonable for him to see Dr. Reese who has seen him while in the hospital and has an office in [place], although he can be seen in the [place] office as well. Dr. Israel will take over the service tomorrow and can follow up on the patient to reassess his status. TIME SPENT: I have spent 2 hours and 45 minutes reviewing copious amounts of medical records, reviewing his images, interviewing and examining the patient, and answering his questions.
[2016-07-26] VITALS (10 sets, daily range): BP systolic 74–126; BP diastolic 52–81; PULSE 63–86; RESP 18–20; O2SAT 94–98
[2016-07-26] MEDS: Sodium Chloride LOK Flush 10 mL Syringe IVFLUSH SCH ×3 (00:07→16:30)
[2016-07-26 02:42] LABS: BASOPHILS % (AUTO) 0.2 % (0-3); EOSINOPHILS % (AUTO) 9.1 % (0-5); MONOCYTES % (AUTO) 5.7 % (4-12); NEUTROPHILS % (AUTO) 75.3 % (40-74); Platelet Count 187 bil/L (150-400)
[2016-07-26 03:08] LABS: Magnesium 2.2 mg/dL (1.6-2.6)
--- NOTE | 2016-07-26 07:35 | NUR ---
Telemetry Pt has had 2 runs of V-Tach that were 3- 4 beats long. Pt was asymptomatic during these episodes.
[2016-07-26] MEDS: Senna-Docusate 8.6-50 mg Tablet PO SCH ×2 (08:59→20:00)
[2016-07-26] MEDS: MeTOProlol XL 25 mg ER24 Tablet PO SCH ×2 (08:59→20:00)
[2016-07-26] MEDS: DULoxetine 30 mg DR Capsule PO SCH (09:00)
[2016-07-26] MEDS: Potassium Chloride 20 mEq SR Tablet PO SCH (09:01)
[2016-07-26 09:37] LABS: INR 1.79 ratio
--- NOTE | 2016-07-26 11:07 | PCM.PNMED ---
Subjective Date of Service Jul 26, 2016 Subjective Overnight: Pt had 3-4 beat runs of V-tach x2 that were asymptomatic. Today: Pt awake and alert, laying in bed with CPAP in place. Pt is appropriately interactive and is able to answer questions. He states understanding of current health status and what our barriers are moving forward with SNF placement regarding cardiac function and current weight preventing bariatric surgery. Exam Vital Signs Vital Sign - Last Date Time Temp Pulse Resp B/P Pulse Ox O2 Delivery O2 Flow Rate FiO2 07/26/16 10:39 86 07/26/16 08:45 Supplement Oxygen CPAP/BIPAP 07/26/16 08:35 36.5 20 126/81 96 3.00 Intake and Output 07/25/16 07/25/16 07/26/16 Cumulative From/Thru 15:00 23:00 07:00 07/22/16 06:14 - 07/25/16 21:16 Intake Total 1370 ml 9321 ml Output Total 1750 ml 43613 ml Balance -380 ml -2174 ml Intake Oral 1370 ml 8718 ml IV Total 603 ml Output Urine Total 1750 ml 17009 ml # Voids 6 # Bowel Movements 3 Exam General: Morbidly obese male laying on right side with CPAP in place. Pt in no acute distress, appropriately interactive. HEENT: Normocephalic, atraumatic. External ears without defect. CPAP mask in place. Cardiovascular: Irregularly irregular. Distant heart tones secondary to body habitus and abient noise from CPAP. No murmurs appreciated Pulmonary: Expiratory wheezes. Normal respiratory effort with no use of accessory muscles. Abdomen: Soft and nontender. Extremities: Bilateral lower extremity pitting edema and stasis dermatitis Neurological: Cranial nerves grossly intact. Psychiatric: Normal mood and affect. IVs and Medications Medications Reviewed: Medications were reviewed in detail Lab and Diagnostics Result Diagram: 07/26/16 0230 07/26/16 0230 X-Rays, CTs and MRIs . X-RAY CHEST ONE VIEW, PORTABLE IMPRESSION: Chronic CHF not significantly changed from prior examination. Dictated by: Manny BARNETT Interpreted: Lelia Donahue MD on 07/22/2016 at 9:28 Cardiac Echo Impressions . Echocardiogram Report Interpretation Summary: 1. Severely dilated left ventricle with normal wall thickness and severe global hypokinesis with an estimated EF of 15 to 20% 2. The right ventricle is not optimally visualized but appears dilated. The estimated right atrial pressure is elevated. 3. Moderate to severe mitral regurgitation into a dilated left atrium 4. The velocities across the bioprosthetic valve appear relatively stable compared to the previous study 5. The ascending aorta is dilated at 4.8 cm Compared to the previous study, the mitral regurgitation has worsened. The IVC was not visualized on the previous two studies. Additional Diagnostics . US RENAL SONOGRAM IMPRESSION: 1. Limited exam demonstrating nonvisualization of the right kidney as before and the left kidney is grossly normal. Dictated by: Manny Bhatt RRA Interpreted: Carmen Thomas MD on 07/23/2016 at 8:45 Assessment & Plan Patient is a 56-year-old morbidly obese gentleman with HFrEF, KOKI, pulmonary hypertension, LBBB, history of DVT/PE, recurrent VT, bioprosthetic aortic valve replacement admitted for chest pain and A. fib with RVR. Hospital day #5. 1. Chest pain. Present on admission. Resolved - Etiologies include acute coronary syndrome, GERD, CHF exacerbation, A. fib, medication noncompliance - ECG showed A. fib with LBBB - Echocardiogram from 04/30/2016 showed EF 25-30%, dilated LV, decreased from previous in 2010, 35-40%. - Repeat echo shows EF 15-20% and visualization of the IVC which would suggest fluid overload - Initial troponin 0.029, in the setting of A. fib - Repeat troponin static at 0.026 - Diltiazem drip stopped - Continue home metoprolol 12.5 mg by mouth daily - Continue home digoxin - Per cardiology held aspirin - Per cardiology held atorvastatin - Per Cardiology Lisinopril 2.5 BID 2. Recurrent ventricular tachycardia, chronic. Present on admission. Ongoing -Several episodes of VT with longest being 32 beats today on 07/25 -patient has recent decline of EF to 15 % from baseline of 25-30% -Past records indicate this is chronic -Potassium and magnesium are within normal limits -Cardiology consultation for AICD eval. Doubt he will be a candidate due to his extreme obesity and high risk for anaesthesia.Recommendations per Cardiology appreciated 3. Atrial fibrillation with RVR. Present on admission. Ongoing -Most likely secondary to medication noncompliance -TSH 4.08 -Weaned off diltiazem gtt -Continue metoprolol -Continue home Digoxin -Continue home warfarin, pharmacy to dose 4. Acute exacerbation of chronic systolic congestive heart failure. Present on admission. Ongoing -Most likely secondary to medication noncompliance -ProBNP 7708 -Echo on current admission Ef 15-20%. Decrease from previous of EF 25-30% -Metoprolol, digoxin as above -Per Cardiology - home Torsemide increased to 60 mg daily -Continue monitoring of I's and O's 5. Acute kidney injury. Present on admission. Ongoing -Likely secondary to acute CHF -Creatinine 1.83 on admit -Renal ultrasound exam limited - nonvisualization of the right kidney and the left kidney is normal -Avoid nephrotoxic agents -Continue to closely monitor I's and O's -No indication of UTI -0.4 mg Flomax 6. Chronic hypercapnic respiratory failure. Present on admission. Ongoing -Secondary to obesity hypoventilation syndrome and obstructive sleep apnea -Continue home CPAP -DuoNeb's when necessary -Continue to monitor 7. Elevated troponin. Present on admission. Improving -In the setting of MARCUS and A. fib with RVR -No change in troponin level 8. Hyponatremia, chronic. Present on admission. Improving -Most likely secondary to dilution -Continue to monitor 9. Insomnia, chronic. Present on admission. -Continue home trazodone, melatonin 10. Depression, chronic. Present on admission. -Continue home duloxetine 11. Gout, chronic. Present on admission. -Continue home allopurinol and colchicine 12. Morbid Obesity. Present on admission. Chronic - Encouraged weight loss - Patient is ideal candidate for bariatric surgery Disposition: Patient will most likely be discharged to home in the next 1-2 days. Awaiting cardiology recommendations, social work input and recommendations regarding possible SNF placement. Pain Evaluation: Adequate Pain Control VTE Prophylaxis: Theraputic Anticoag with Warfarin Resuscitation Status: CPR: Attempt Resuscitation Attending Statement The patient was seen and examined together with Dr. Rodgers on 07/26/2016 and I agree with the history, exam and plan as outlined in the note above. . GAIL RODGERS DO Jul 26, 2016 11:07 Amilcar Agosto MD Jul 26, 2016 12:49
--- NOTE | 2016-07-26 11:19 | NUR ---
Social Work Note: Continued Discharge Planning Data& Assessment: Per MD pt is not medically ready for discharge at this time, but getting closer to being stable. SW spoke with pt RENETTA Friedman ([phone]) and updated her on pt medical status. SW spoke with [facility] Saskia Noland who explained their oumar lift maxes out at 450lbs but they would like to have the pt at a lower weight than the maximum in case he gains weight during his rehab stay. Standing weight pending for updated and more accurate weight. [facility] Saskia Noland would also like to meet the pt at bedside today at 1p.m. SW also spoke with [facility] who explained they would also like to meet pt at bedside today between 2:30-3:00p.m. SW met with pt a bedside to check in and assess for any unmet needs. Pt confirmed he would like to go to rehab at SNF. [facility] RN updated on visit times. MD updated. PT evaluation pending. Standing weight pending. SW to continue to follow. Plan: Anticipated discharge to SNF for rehab pending acceptance and PT evaluation. [facility] Saskia Noland and [facility] SNF bedside visits this afternoon. Pt, RN and MD updated and agreeable to plan. KIRK Villalba Addendum: 07/26/16 at 1439 by PEDRO PABLO BROWN Social Work Note: Continued Discharge Planning Data& Assessment: BRANDY spoke with Catalina from [facility] who informed SW that they are able to accept pt when medically ready with [facility] to follow PENDING obtaining bariatric medical bed and equipment needed to meet pt's needs. [facility] is ordering the equipment today in anticipation pt will be medically stable to discharge in the next 1-2 days. SW to confirm with [facility] that they have the proper equipment prior to pt discharging to their facility. As [facility] was pt first preference, SW notified [facility] that their bedside assessment is not necessary at this time as [facility] has accepted pt. SW to continue to follow. Plan: Anticipated discharge to [facility] when medically ready pending SNF obtaining appropriate equipment to meet pt's needs. SW to continue to follow. KIRK Villalba
--- NOTE | 2016-07-26 13:05 | PROG NOTE ---
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 His feelings of lightheadedness and weakness are better. However, he continues to feel somewhat "dizzy and fluttery." Patient has articulated to me serious concerns about going home to his original living situation and worries whether he is likely to bounce right back. PHYSICAL EXAMINATION: Temperature 36.5, blood pressure at this time is 126/81 with a frances 74/52. Pulse on telemetry 69, up to 105 beats per minute, with one 6-beat run of nonsustained VT at 2 a.m. which was asymptomatic. Satting 96 to 97% on 3 L O2. Obese man, no apparent distress. Eyes: No scleral icterus. Neck supple. Heart: S1, S2. No murmurs. Irregularly irregular. Lungs are clear. Anterior abdomen is soft, positive bowel sounds. No hepatosplenomegaly. Extremities: Warm, well perfused. No clubbing, cyanosis, or edema. Skin: Shows bilateral venous stasis change. EKG on admission, July 22, showed AFib with RVR and left bundle branch block. CURRENT MEDICATIONS: 1. Torsemide 60 mg daily. 2. Lisinopril 2.5 mg twice a day. 3. Digoxin 0.25 mg daily. 4. Metoprolol succinate 12.5 mg twice a day. 5. Spironolactone 25 mg daily. 6. Potassium chloride 40 mEq daily. 7. Warfarin. 8. Tamsulosin 0.4 mg daily. ASSESSMENT AND PLAN: A 56-year-old man with history of acute decompensated heart failure. Multiple hospitalizations in the past year. 1. Acute decompensated heart failure. Dry and euvolemic on exam. Most recent echocardiogram showed ejection fraction 20% with severely dilated left ventricle. Of note, prior angiogram performed in 2011 in anticipation of his valve replacement showed no evidence of obstructive CAD. 2. History of severe aortic stenosis and bicuspid valve, status post stented bioprosthesis in 2011--most recent echocardiogram performed July 23, 2016, showed stable velocities across the stented bioprosthesis. Leaflets are not well visualized on personal review. The dimensionless valve index is 0.09 which is consistent with normally functioning prosthesis. Patient has associated moderate to severe mitral regurgitation and mildly dilated ascending aorta for his size. 3. Chronic atrial fibrillation--on warfarin. Goal INR between 2-3. 4. Urinary retention: Patient says he has never seen a urologist. He was recently started on tamsulosin. He has nocturia and polyuria. He says that his urinary stream is weak. He has to go frequently and sometimes he only generates 40 mL of urine at a time. Recommend outpatient urology consultation. 5. Primary prevention of sudden cardiac : The patient has wide QRS complex in my opinion. He could potentially benefit from cardiac resynchronization therapy but I think as a 1st step he needs to demonstrate good compliance with medical management and the best way to do that is for him to be closely monitored by Dr. Reese as an outpatient. His QRS duration is dynamic and tends to be wider when he is in very rapid rhythm. Most recent EKG July 26 showed QRS duration 128 msec with incomplete left bundle branch block. Thank you very much for the opportunity to evaluate him. I think he is dry and euvolemic on exam. His rate is controlled. His nonsustained VT is controlled on beta maryjane. At this time, I sign off, but I am available for questions. KENNY
--- NOTE | 2016-07-26 14:25 | PCM.PHAPRO ---
Progress Chest pain WARFARIN DOSING S/O 56 Y/O MALE WARFARIN FOR A.FIB HOME DOSE 4MG DAILY -Jul 14-Jul 15-Jul 16-Jul 17-Jul 18-Jul 19-Jul 29-Jul 2.02 2.04 1.92 1.79 0.02 1.92 -0.13 3MG/D 3 3 3 5MG A/P: INR subtherapeutic today, increase to 5mg x 1, check INR tomorrow. Janelle Cristobal Pharm.D Jul 26, 2016 14:25
--- NOTE | 2016-07-26 15:42 | NUR ---
Evaluation completed. Please go to "Notes" then click on "Assessments and Notes" (bottom left corner of screen). Then select appropriate discipline tab on top of screen.
--- NOTE | 2016-07-26 17:34 | NUR ---
V tach Patient a/o x 3, denies pain or nausea this shift, but cont to c/o dizziness and sob. Patient tele A fib 70-100's cont to have episodes of V tach, patient asymptomatic. VSS. Patient dangles at bedside for meals, mauro well. Amb in room with walker and sba, mauro fair. Tires quickly r/t exertion and dyspnea. Will cont poc.
--- NOTE | 2016-07-26 21:44 | NUR ---
Vtach Pt noted to have 5 beats of V Tach per night monitor. Pt on the phone with family member without s/sx of distress. Denies chest pain and shortness of breath. Asymptomatic. VSS. care ongoing.
[2016-07-27] VITALS (8 sets, daily range): BP systolic 83–161; BP diastolic 49–81; PULSE 53–79; RESP 18–22; O2SAT 93–100
--- NOTE | 2016-07-27 00:11 | NUR ---
V Tach Pt noted to have 6 beats of V Tach and 10 seconds later another 6 beats of V Tach while asleep. BP 94/56 HR 73 O2 98% Via Bipap RR 18 T 36.6. Asymptomatic. Denies chest pain and shortness of breath. Care ongoing.
[2016-07-27] MEDS: Sodium Chloride LOK Flush 10 mL Syringe IVFLUSH SCH ×2 (00:36→07:46)
--- NOTE | 2016-07-27 00:56 | NUR ---
V Tach Pt noted to have 16 beats of V Tach per patient monitor. VSS. BP 112/77 HR 79 SPo2 93% on @ 2L NC RR 18 T 36.8. Pt sitting on the side of the bed watching television while eating ice cream. Asymptomatic. Denies shortness of breath, chest pressure/ pain, dizziness and lightheadedness. "Oh is my heart acting up again?" Pt did not feel any change in heart rhythm. paged and awaiting response. Care ongoing. Will continue to monitor.
[2016-07-27 02:52] LABS: BASOPHILS % (AUTO) 0.3 % (0-3); EOSINOPHILS % (AUTO) 9.8 % (0-5); Mean Corpuscular Hemoglobin 24.4 pg (27.0-35.0); Mean Corpuscular Volume 84.5 fL (81-100); NEUTROPHILS % (AUTO) 75.4 % (40-74); Platelet Count 221 bil/L (150-400)
[2016-07-27 03:07] LABS: INR 1.74 ratio
[2016-07-27 03:14] LABS: Magnesium 2.2 mg/dL (1.6-2.6)
[2016-07-27] MEDS: DULoxetine 30 mg DR Capsule PO SCH (07:45)
[2016-07-27] MEDS: Senna-Docusate 8.6-50 mg Tablet PO SCH (07:45)
[2016-07-27] MEDS: Potassium Chloride 20 mEq SR Tablet PO SCH (07:46)
[2016-07-27] MEDS ORDERED: TAMS0.4C98 PO (09:37)
--- NOTE | 2016-07-27 09:47 | NUR ---
BP/Vtach notified at 0928 of low trending BP's this am with most recent 83/49. Pty denies symptoms at rest, mild dizziness with sitting at side of bed. MD aware of vtach. To review med list. To recheck BP at 0945 and stagger torsemide, beta maryjane and lisinopril 1 hour in between each for SBP greater than 90. To continue to monitor. Addendum: 07/27/16 at 1030 by TONYA ROCK RN R forearm (preferred by MD) BP 101/68. Per MD to give remaining meds staggered.
[2016-07-27] MEDS ORDERED: LISI2.5T PO (09:48)
[2016-07-27] MEDS ORDERED: METO25TA99 PO ×2 (09:48→11:57)
--- NOTE | 2016-07-27 10:01 | PCM.DIMED ---
GAIL RODGERS DO 07/26/16 1808: Discharge Instructions Date of Service Jul 26, 2016 Dates of Hospitalization Jul 22, 2016 at 09:34 Discharge Diagnosis Discharge Diagnosis . 1. Chest pain 2. Recurrent ventricular tachycardia 3. Atrial fibrillation with RVR 4. Acute exacerbation of chronic systolic congestive heart failure 5. Acute kidney injury 6. Chronic hypercapnic respiratory failure 7. Elevated troponin 8. Hyponatremia 9. Insomnia 10. Depression 11. Gout 12. Morbid Obesity. Medication Instructions During your hospital admission cardiology was consult in and have made the following recommendations: 1. Per Dr. Perez's consultation note on 07/25/2016 "Chest discomfort. I doubt this represents an underlying myocardial ischemia given his normal cardiac catheterization and absence of significant risk factors. Given this, I think it is reasonable to stop his atorvastatin and aspirin to simplify his medications and reduce his risk. 2. Dr. Perez also recommended to increase your torsemide from 40 mg daily to 60 mg daily, though due to your hypotension it was decided best to resume your previous dose of 40 mg daily. Your medication reconciliation stated that you are taking 100 mg of this medication by mouth daily in addition to your 40 mg by mouth daily. The 100 mg tablet was discontinued upon discharge. 3. Continue to take metoprolol succinate ER 25 mg 2 times a day 4. Continue to take digoxin 0.25 mg by mouth daily 5. Continue to take lisinopril 2.[address] twice a day Dr. Perez and Dr. Israel suggests strongly that she will follow up with scheduled regional clinics cardiology within the next week regarding these new medications and continuing monitoring of their effect and any possible changes that need to be made. Your primary hospital team has made the following medication recommendations and changes: 1. You have been started you on a medication called tamsulosin (Flomax) while in the hospital to aid in your urination. You are to take 0.4 mg this medication by mouth daily. Please consider obtaining a urology consult from your primary care provider regarding urinary retention 2. Your allopurinol 300 mg by mouth daily and colchicine 0.6 milligrams by mouth twice a day have been continued for your gout 3. Your duloxetine 60 mg by mouth daily has been continued for your anxiety/ depression 4. Your potassium chloride 40 mEq by mouth daily has been continued 5. Your spironolactone processes Aldactone) 25 mg by mouth daily has also been continued - Regarding numbers 4 and 5 please follow-up with your primary care provider within the next week to monitor your electrolyte status specifically your potassium level 6. Your trazodone 40 mg by mouth daily as well as 50 mg by mouth at bedtime when necessary for sleep has been continued 7. Warfarin 4 mg by mouth daily has been continued for your atrial fibrillation. Please follow up with Coumadin clinic Diet Heart Healthy Activity No restrictions Call your provider Fever or Chills, Shortness of breath, Bleeding, Chest pain, Vomitting, Excessive diarrhea Patient Instructions Please continue to take your regularly prescribed medications in addition to the new medications you have received upon discharge. Please follow-up with your primary care provider as well as [facility] cardiology as soon as possible to ensure medication effectiveness and proper response. Follow-up Provider: Maya Bruno MD Follow-up with PCP in: 1 week Provider: Edil Reese MD Follow-up in: 1 week Amilcar Agosto MD 07/28/16 0726: Discharge Instructions Attending's Statement The patient was seen and examined together with Dr. Rodgers on 07/27/2016 and I agree with the history, exam and plan as outlined in the note above. . GAIL RODGERS DO Jul 26, 2016 18:08 Amilcar Agosto MD Jul 28, 2016 07:26
--- NOTE | 2016-07-27 10:03 | NUR ---
Spoke with Song WILKERSON at [facility] and they will take patient today, they will medicinal plant picker at NOON. 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
[2016-07-27] MEDS: MeTOProlol XL 25 mg ER24 Tablet PO SCH (10:31)
--- NOTE | 2016-07-27 11:26 | NUR ---
Report Report called to Lillie at [facility].
--- NOTE | 2016-07-27 11:39 | NUR ---
Social Work Note: Discharge Data& Assessment: Per pt is medically really for discharge. Max High is a 56 year old male admitted on 07/22/2016 for A FIB RVR/chest pain/CHF. Per pt is medically stable for discharge to SNF for increasing strength and mobility, vital monitoring, medication management and monitoring and oxygen. Pt was only able to ambulate 15ft with his walker with PT. [facility] has accepted pt, [facility] is pt's first preference. BRANDY confirmed with Song, Director at [facility] they have the appropriate equipment to meet pt's needs and arranged a wheelchair van to transport pt to SNF at 2:00p.m. BRANDY met with pt at bedside to confirm discharge plan and assess for any unmet needs. Pt denies any other needs, but concerned about getting his personal walker to the SNF. BRANDY contacted Song at [facility] and notified him that pt has his personal walker with him for transport to their facility. No other discharge need identified. RN, , pt and facility all updated and agreeable to plan. Plan: Per pt is medically improved and ready to discharge to [facility] for rehab via wheelchair van arranged by facility. Pt denies any other needs. No other discharge need identified. AISHA, , pt and facility all updated and agreeable to plan. KIRK Villalba Addendum: 07/27/16 at 1215 by EMMA HERNANDEZ SS informed BRANDY that discharge instructions and medications have changed. BRANDY updated discharge packet in folder, faxed new orders and prescriptions to [facility]. Maria T Hernandez [employer]
--- NOTE | 2016-07-27 12:43 | PCM.DC.MED ---
Discharge Summary Date of Service Jul 27, 2016 Dates of Hospitalization Date of Hospital Admission Jul 22, 2016 at 09:34 Date of Discharge: Jul 27, 2016 Providers: Admitting Physician: Deondre Coe MD Primary Care Physician: Maya Bruno MD Attending Physician: Deondre Coe MD Diagnosis at Time of Discharge Diagnosis at Time of Discharge . 1. Chest pain 2. Recurrent ventricular tachycardia 3. Atrial fibrillation with RVR 4. Acute exacerbation of chronic systolic congestive heart failure 5. Acute kidney injury 6. Chronic hypercapnic respiratory failure 7. Elevated troponin 8. Hyponatremia 9. Insomnia 10. Depression 11. Gout 12. Morbid Obesity. Consultations Dr. Chris M.D., cardiology Dr. Lindy M.D., cardiology Procedures XRay, CTs & MRIs . X-RAY CHEST ONE VIEW, PORTABLE IMPRESSION: Chronic CHF not significantly changed from prior examination. Dictated by: Manny BARNETT Interpreted: Lelia Donahue MD on 07/22/2016 at 9:28 Cardiac Echo Impression . Echocardiogram Report Interpretation Summary: 1. Severely dilated left ventricle with normal wall thickness and severe global hypokinesis with an estimated EF of 15 to 20% 2. The right ventricle is not optimally visualized but appears dilated. The estimated right atrial pressure is elevated. 3. Moderate to severe mitral regurgitation into a dilated left atrium 4. The velocities across the bioprosthetic valve appear relatively stable compared to the previous study 5. The ascending aorta is dilated at 4.8 cm Compared to the previous study, the mitral regurgitation has worsened. The IVC was not visualized on the previous two studies. Other Diagnostics . US RENAL SONOGRAM IMPRESSION: 1. Limited exam demonstrating nonvisualization of the right kidney as before and the left kidney is grossly normal. Dictated by: Manny BARNETT Interpreted: Carmen Thomas MD on 07/23/2016 at 8:45 Brief History Mr. High is a 56 year old gentleman with a past medical history of CHF, LBBB, and aortic valve replacement who presents to the ED via EMS complaining of chest pain onset 0300 this morning while he was laying in bed, waking him up from sleep He describes pain as a dull pain 4/10overall with sharp intermittent pain. He feels like a "fish out of water". This pain will wax and wane and radiates to his right arm. The patient states that he has had chest pain before but that it did not feel like this as this was more like a pressure. Associated symptoms include dizziness, nausea, belching, insomnia, shortness of breath, diaphoresis, hot flashes, anxiety, urinary retention, and urinary urgency. He states that he has a loss of episode appetite recently though does endorse abdominal pain which may feel like hunger pains. He states exertional shortness of breath as well as shortness of breath while at rest that has progressively gotten worse. States he can walk approximately 10 feet before he needs to stop to catch his breath. He states that he is able to sleep laying down (supine) at night, though mostly on his right side with slight elevation. For the past week patient states that whenever he has had to urinate he has not been able to completely void though he is able to make urine. Due to this he stopped taking his diuretic medication yesterday. Regarding his other medications patient states he is not sure if he is compliant because there is " a lot" and he has to take some multiple times per day, this includes compliance with home metoprolol. He states the medications he has to take 2 and 3 times a day he does not instead taking his medications one time during the day in the morning. Patient hospitalized in April 2016 for same. EF at that time 25-30% . And states recent hospitalization in [place] for same. A comprehensive review of systems was conducted with the patient and found to be negative except as above in the history of present illness. In the emergency department patient had an episode of near syncope, while sitting in the hospital bed. Cardiology was consult from the emergency department. EKG showed atrial fibrillation with a rate of 142 IVCD and atypical left bundle branch block. Chest x-ray showed chronic CHF which had not been significantly changed from prior examination. Lab work remarkable for leukocytosis mild anemia, hyponatremia, elevated BUN/creatinine. Creatinine at 1.83. Troponin slightly elevated at 0.029. Patient given 5 mg IV metoprolol and diltiazem drip initiated. Vital signs in the ED were temperature 36.7, pulse rate 125, respirations 36 blood pressure 101/75 93% on 4 L nasal cannula though at times patient required BiPAP. Hospital Course 1. Chest pain. - Etiologies include acute coronary syndrome, GERD, CHF exacerbation, A. fib, medication noncompliance - ECG showed A. fib with LBBB - Echocardiogram from 04/30/2016 showed EF 25-30%, dilated LV, decreased from previous in 2010, 35-40%. - Repeat echo shows EF 15-20% and visualization of the IVC which would suggest fluid overload - Initial troponin 0.029, in the setting of A. fib - Repeat troponin static at 0.026 - Cardiology consulted, continue to follow patient throughout hospital admission - Diltiazem drip stopped - Continued home metoprolol, increase dose to 25 mg by mouth twice a day - Continued home digoxin - Per cardiology held aspirin - Per cardiology held atorvastatin - Per Cardiology started Lisinopril 2.5 BID 2. Recurrent ventricular tachycardia -Several episodes of VT with longest being 32 beats today -Patient has recent decline of EF to 15 % from baseline of 25-30% -Past records indicate this is chronic -Potassium and magnesium are within normal limits, at time of discharge potassium 4.4 magnesium 2.2 3. Atrial fibrillation with RVR -Most likely secondary to medication noncompliance -TSH 4.08 -Started on diltiazem drip subsequently weaned off with successful rate control -Metoprolol as in #1 -Digoxin is a #1 -Continue home warfarin, pharmacy to dose 4. Acute exacerbation of chronic systolic congestive heart failure -Most likely secondary to medication noncompliance -ProBNP 7708 -Echo as in #1 -Metoprolol, digoxin as in #1 -Torsemide increased to 60 mg daily, decreased back to 40 mg daily secondary to hypotension -Continual monitoring of I's and O's throughout hospital admission 5. Acute kidney injury. -Likely secondary to acute on chronic CHF -Creatinine 1.83 on admit -Renal ultrasound exam limited - nonvisualization of the right kidney and the left kidney is normal -Avoided nephrotoxic agents -Continued to closely monitor I's and O's -No indication of UTI -Started 0.4 mg Flomax -Recommend urological follow-up upon discharge 6. Chronic hypercapnic respiratory failure -Secondary to obesity hypoventilation syndrome and obstructive sleep apnea -Continued home CPAP -DuoNeb's when necessary 7. Elevated troponin -In the setting of MARCUS and A. fib with RVR -No change in troponin level, 3 values 0.029, 0.024, 0.027 8. Hyponatremia -Most likely secondary to dilution -Resolved, 139 at discharge 9. Insomnia -Continued home trazodone, melatonin 10. Depression -Continued home duloxetine 11. Gout -Continued home allopurinol and colchicine 12. Morbid Obesity - Encouraged weight loss - Patient is not ideal candidate for bariatric surgery secondary to decreased cardiac function. In order to successfully undergo his treatment patient will need to improve cardiac function before he will be candidate for surgery. Exam Vital Signs (Last) Date Time Temp Pulse Resp B/P Pulse Ox O2 Delivery O2 Flow Rate FiO2 07/27/16 11:50 76 20 104/67 98 BiPAP 07/27/16 07:35 36.3 2.00 Exam General: Morbidly obese male laying on right side with CPAP in place. Pt in no acute distress, appropriately interactive. Able to cooperate with physical exam to the best of his ability HEENT: Normocephalic, atraumatic. External ears without defect. CPAP mask in place. Cardiovascular: Irregularly irregular. Distant heart tones secondary to body habitus and abient noise from CPAP. No murmurs appreciated Pulmonary: Expiratory wheezes. Normal respiratory effort with no use of accessory muscles. Difficult to appreciate secondary to ambient noise from CPAP Abdomen: Soft and nontender. Extremities: Bilateral lower extremity pitting edema and stasis dermatitis, painful to palpation Neurological: Cranial nerves grossly intact. Psychiatric: Normal mood and affect. Test 07/22/16 06:07 07/22/16 06:37 07/22/16 06:46 07/22/16 07:16 Hold Purple Top Tube Received (Received) Activated Partial Thromboplast Time 40.4sec (22.8-33.0) Hold Blue Top Tube Received (Received) Pro-B-Type Natriuretic Peptide 7708pg/mL (0-121) Thyroid Stimulating Hormone (TSH) 4.080uIU/mL (0.450-4.500) Hold Red Top Tube Received (Received) Hold [place] Top Tube Received (Received) Lactic Acid Level 1.4mmol/L (0.4-2.0) D-Dimer < 0.50mg/L FEU (<0.50) Urine Color Yellow (YELLOW) Urine Appearance Hazy (CLEAR,HAZY) Urine pH 6.0 (5.0-8.0) Urine Specific [place] 1.025 (1.003-1.035) Urine Protein 100mg/dL (NEG,TRACE) Urine Glucose (UA) Negativemg/dL (NEGATIVE) Urine Ketones Negativemg/dL (NEGATIVE) Urine Occult Blood Trace (NEGATIVE) Urine Nitrite Negative (NEGATIVE) Urine Bilirubin Negative (NEGATIVE) Urine Urobilinogen Normalmg/dL (NORMAL) Urine Leukocyte Esterase Negative (NEGATIVE) Urine RBC 3-10/hpf (0-2) Urine WBC 0-5/hpf (0-5) Urine Epithelial Cells Occasional/hpf (NONE-MOD) Urine Crystals None seen (NONE SEEN) Urine Bacteria None/hpf (NONE-FEW) Urine Hyaline Casts Occasional/lpf (NONE) Urine Granular Casts None seen (NONE SEEN) Urine Waxy Casts None seen (NONE SEEN) Urine Red Blood Cell Casts None seen (NONE SEEN) Urine White Blood Cell Casts None seen (NONE SEEN) Urine Mucus Present (None Seen) Urine Trichomonas None seen (NONE SEEN) Urine Yeast None (NONE SEEN) Urinalysis Comment None Urine Culture Reflexed Not indicated Test 07/23/16 03:05 07/26/16 02:30 07/27/16 02:20 Hematology Comments Troponin T 0.027ug/L (0.0-0.011) Triglycerides Level 82mg/dL (0-149) Cholesterol Level 91mg/dL (100-199) LDL Cholesterol, Calculated 52.600mg/dL (0-99) VLDL Cholesterol 16.400mg/dL HDL Cholesterol 22mg/dL (>39) Cholesterol/HDL Ratio 4.14 (0.0-4.4) Digoxin Level 0.4nG/mL (0.9-2.0) White Blood Count 6.6th/mm3 (3.8-10.1) Red Blood Count 4.26mil/mm3 (4.40-5.80) Hemoglobin 10.4g/dL (13.8-17.2) Hematocrit 36.0% (41.0-50.0) Mean Corpuscular Volume 84.5fL (81-100) Mean Corpuscular Hemoglobin 24.4pg (27.0-35.0) Mean Corpuscular Hemoglobin Concent 28.9% (32.0-37.0) Red Cell Distribution Width 18.4% (12.3-15.4) Platelet Count 221bil/L (150-400) Neutrophils (%) (Auto) 75.4% (40-74) Lymphocytes (%) (Auto) 7.9% (14-46) Monocytes (%) (Auto) 6.0% (4-12) Eosinophils (%) (Auto) 9.8% (0-5) Basophils (%) (Auto) 0.3% (0-3) Prothrombin Time 18.8sec (8.1-12.5) Prothromb Time International Ratio 1.74ratio Sodium Level 139mEq/L (134-144) Potassium Level 4.4mEq/L (3.5-5.2) Chloride Level 91mEq/L (97-108) Carbon Dioxide Level 34mmol/L (18-29) Blood Urea Nitrogen 40mg/dL (6-24) Creatinine 1.49mg/dL (0.76-1.27) Estimat Glomerular Filtration Rate 52mL/min (>59) Glucose Level 116mg/dL (60-99) Calcium Level 9.1mg/dL (8.5-10.1) Magnesium Level 2.2mg/dL (1.6-2.6) Total Bilirubin 0.7mg/dL (0.0-1.2) Aspartate Amino Transf (AST/SGOT) 17U/L (0-50) Alanine Aminotransferase (ALT/SGPT) 10U/L (0-44) Alkaline Phosphatase 88U/L (25-150) Total Protein 6.6g/dL (6.4-8.4) Albumin 3.1g/dL (3.4-5.0) Discharge Medications Discharge Medications Allopurinol (Allopurinol) 300 Mg Tablet 300 MG PO DAILY (Reported) Colchicine (Colcrys) 0.6 Mg Tablet 0.6 MG PO BID Prescribed by: VALERIA SANTOYO MD Digoxin (Digoxin) 250 Mcg Tablet 0.25 MG PO DAILY@12 Prescribed by: ROMMEL ORDOÑEZ DO Duloxetine (Duloxetine) 30 Mg Capsule.dr 60 MG PO DAILY (Reported) Lisinopril (Lisinopril) 2.5 Mg Tablet 2.5 MG PO BID Prescribed by: GAIL RODGERS DO Metoprolol Succinate ER (Metoprolol Succinate ER) 25 Mg Tab.er.24h 25 MG PO BID Prescribed by: GAIL RODGERS DO Potassium Chloride (Potassium Chloride) 20 Meq Tab.er.prt 40 MEQ PO DAILY ( Reported) Spironolactone (Aldactone) 25 Mg Tablet 25 MG PO DAILY Prescribed by: ROMMEL ORDOÑEZ DO Tamsulosin (Flomax) 0.4 Mg Capsule 0.4 MG PO HS Prescribed by: GAIL RODGERS DO Torsemide (Demadex) 20 Mg Tablet 40 MG PO DAILY Prescribed by: ROMMEL ORDOÑEZ DO Warfarin Sodium (Warfarin Sodium) 4 Mg Tablet 4 MG PO DAILY (Reported) As needed Melatonin (Melatonin) 1 Mg Tablet 1 MG PO HS PRN PRN Insomnia Prescribed by: VALERIA SANTOYO MD Nitroglycerin SL (Nitrostat) 0.4 Mg Tab.subl 0.4 MG SL Q5MIN PRN PRN For Chest Pain Prescribed by: ROMMEL ORDOÑEZ DO Trazodone (Trazodone) 50 Mg Tablet 50-300 MG PO HS PRN PRN For Sleep (Reported) Additional med instructions During your hospital admission cardiology was consult in and have made the following recommendations: 1. Per Dr. Perez's consultation note on 07/25/2016 "Chest discomfort. I doubt this represents an underlying myocardial ischemia given his normal cardiac catheterization and absence of significant risk factors. Given this, I think it is reasonable to stop his atorvastatin and aspirin to simplify his medications and reduce his risk. 2. Dr. Perez also recommended to increase your torsemide from 40 mg daily to 60 mg daily, though due to your hypotension it was decided best to resume your previous dose of 40 mg daily. Your medication reconciliation stated that you are taking 100 mg of this medication by mouth daily in addition to your 40 mg by mouth daily. The 100 mg tablet was discontinued upon discharge. 3. Continue to take metoprolol succinate ER 25 mg 2 times a day 4. Continue to take digoxin 0.25 mg by mouth daily 5. Continue to take lisinopril 2.5 mg twice a day Dr. Perez and Dr. Israel suggests strongly that she will follow up with scheduled [facility] cardiology within the next week regarding these new medications and continuing monitoring of their effect and any possible changes that need to be made. Your primary hospital team has made the following medication recommendations and changes: 1. You have been started you on a medication called tamsulosin (Flomax) while in the hospital to aid in your urination. You are to take 0.4 mg this medication by mouth daily. Please consider obtaining a urology consult from your primary care provider regarding urinary retention 2. Your allopurinol 300 mg by mouth daily and colchicine 0.6 milligrams by mouth twice a day have been continued for your gout 3. Your duloxetine 60 mg by mouth daily has been continued for your anxiety/ depression 4. Your potassium chloride 40 mEq by mouth daily has been continued 5. Your spironolactone processes Aldactone) 25 mg by mouth daily has also been continued - Regarding numbers 4 and 5 please follow-up with your primary care provider within the next week to monitor your electrolyte status specifically your potassium level 6. Your trazodone 40 mg by mouth daily as well as 50 mg by mouth at bedtime when necessary for sleep has been continued 7. Warfarin 4 mg by mouth daily has been continued for your atrial fibrillation. Please follow up with Coumadin clinic Followup Plan Disposition: Patient discharged to SNF in stable condition Follow-up plan Patient will follow up with primary care provider as well as cardiology clinic within the next week for ongoing care Discharge Diet: Heart Healthy Discharge Activity: No restrictions Patient Instructions Please continue to take your regularly prescribed medications in addition to the new medications you have received upon discharge. Please follow-up with your primary care provider as well as [facility] cardiology as soon as possible to ensure medication effectiveness and proper response. Follow-up Provider: Maya Bruno MD Follow-up with PCP in: 1 week Provider: Edil Reese MD Follow-up in: 1 week Time spent Greater than 30 minutes was spent in preparation of discharge with greater than 50% of that time dedicated to patient counseling and coordination of care. . Attending Statement The patient was seen and examined together with Dr. Rodgers on 07/27/2016 and I agree with the history, exam and plan as outlined in the note above. . copies to: David Alfaro DO; Maya Bruno MD, GILES A DO Jul 27, 2016 12:43 Amilcar Agosto MD Jul 28, 2016 07:27
--- NOTE | 2016-07-27 13:40 | PCM.PHAPRO ---
Progress Chest pain WARFARIN MAINTENANCE DOSING DAY 6 S/O 56 Y/O MALE WARFARIN FOR A.FIB HOME DOSE WAS 4MG DAILY -Jul 23-Jul 15-Jul 16-Jul 17-Jul 27-Jul 28-Jul 29-Jul 2.02 2.04 1.92 1.79 1.74 0.02 1.92 -0.13 -0.05 3MG/D 3 3 3 5MG 7.5MG A/P: INR subtherapeutic today, increase to 7.5mg x 1, RE-check INR tomorrow. Janelle Cristobal Pharm.D Jul 27, 2016 13:40
--- NOTE | 2016-07-27 14:55 | NUR ---
Discharge note Patient a/o x 3, PEÑA. Patient denies pain or nausea, cont to have sob at baseline, O2 @ 2-3 L nc. Patient transported to [facility] via hospital wheelchair with all belongings (clothes, suitcase, laptop, c pap). Wheelchair returned to hospital post transfer.
[2016-07-27] MEDS ORDERED: Warfarin 5 MG, Warfarin 2.5 MG PO ONE ×2 (17:00)
--- NOTE | 2016-07-28 01:24 | PROG NOTE ---
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 SUBJECTIVE: The patient says he is feeling better. He says he was aware of some palpitations which corresponded to runs of nonsustained VT noted on monitor at midnight and then at 9 a.m. this morning. The longest one was 16 beats. OBJECTIVE: Vital signs reviewed. Temperature 36.8. Blood pressure 83/49, up to 118/81. Pulse 70 beats per minute. Satting 93% to 98% on 6 L nasal cannula. Overweight man in no apparent distress. Eyes: No scleral icterus. Neck: Supple. Heart: Normal S1, S2. No murmurs. Irregularly irregular. Lungs: Clear. Abdomen: Soft with positive bowel sounds. No hepatosplenomegaly. Extremities: Warm, well perfused. No clubbing noted. There is mild bilateral edema with bilateral venous stasis change. CURRENT MEDICATIONS: In the hospital: 1. Torsemide 40. 2. Lisinopril 2.5 mg twice a day. 3. Metoprolol succinate 12.5 mg twice a day. 4. Digoxin 250 mcg daily. 5. Spironolactone 25 mg daily. 6. Potassium chloride 40 mEq daily. 7. Warfarin. 8. Tamsulosin 0.4 mg daily.. ASSESSMENT AND PLAN: This is a 56-year-old man with sudden severe cardiomyopathy. Most recent ejection fraction was about 20%. Severely dilated left ventricle and history of aortic valve stenosis, status post aortic valve replacement in 2011. His management has been complicated by runs of nonsustained ventricular tachycardia. An internal cardioverter-defibrillator has been contemplated in the past, as well as [facility] and by [facility], but ICD placement is of course very challenging because of excess weight which exceeds any of our cath tables to allow fluoroscopy and device implant. He is closely monitored as an outpatient by Dr. Reese and he can discuss with Dr. Reese what all is possible for him in terms of device management and whether he is eligible for amiodarone. His weight based on our scale is 217 kg, which translates into 492 pounds, and our tables are up to 450 pounds. 1. Severe left ventricular dysfunction. He is on maximum tolerated doses of LUDIN inhibitors, beta-maryjane and aldosterone receptor maryjane. Upward titration at this moment in time is limited by relative hypotension. 2. Chest discomfort. I doubt this represents ischemia and given reassuring cardiac catheterization prior to his valve replacement in 2011. He is not currently on statin and I think it is reasonable. 3. Oral anticoagulation. Patient is on anticoagulation for stroke prevention in the setting of chronic atrial fibrillation. He seems to be tolerating it well. He stated his wish to go to acute inpatient rehab and I think that is reasonable, and he can follow up with Dr. Reese as an outpatient to discuss medication management further and device considerations as well. Thank you very much for the opportunity to evaluate him.
== END 2016-07-27 14:50 | DRG 313 ==
LOC: SED 06:47 → PCC 09:34
PROVIDERS: ADMIT Internal Medicine; ATTEND Internal Medicine
DX: R07.9 Chest pain, unspecified (principal); I50.23 Acute on chronic systolic (congestive) heart failure; N17.9 Acute kidney failure, unspecified; J96.12 Chronic respiratory failure with hypercapnia; E87.1 Hypo-osmolality and hyponatremia; Z68.43 Body mass index [BMI] 50.0-59.9, adult; I47.2 Ventricular tachycardia; I24.9 Acute ischemic heart disease, unspecified; I48.2 Chronic atrial fibrillation; I48.91 Unspecified atrial fibrillation; E66.01 Morbid (severe) obesity due to excess calories; Z95.2 Presence of prosthetic heart valve; Z79.82 Long term (current) use of aspirin; Z79.01 Long term (current) use of anticoagulants; Z87.891 Personal history of nicotine dependence; Z91.19 Patient's noncompliance with other medical treatment and regimen; G47.00 Insomnia, unspecified; F32.9 Major depressive disorder, single episode, unspecified; M10.9 Gout, unspecified; I44.7 Left bundle-branch block, unspecified; Z87.01 Personal history of pneumonia (recurrent); E87.70 Fluid overload, unspecified; K21.9 Gastro-esophageal reflux disease without esophagitis